=== PATIENT | female | born 1950 | race Caucasian/White ===

== ENCOUNTER → 2020-07-04 17:53 | Outpatient (CLI) | payer MEDICARE, SELFPAY ==
--- NOTE | ~2020-07-04 | DEXA_ITS ---
Bone Density Report Name: Aminah Bustamante Age: 70 Sex: Female Ethnicity: White Date of : 1950 Indication: osteopenia; height loss; prior fracture; hysterectomy; postmenopausal Referring Provider: Abbey Mena Study: Bone densitometry was performed. Exam Date: July 04, 2020 Accession number: [id number] Bone Density: Region BMD T-score Z-score Classification AP Spine (L1-L4) 0.868 -1.6 0.6 Osteopenia Femoral Neck (Left) 0.649 -1.8 0.1 Osteopenia Total Hip (Left) 0.787 -1.3 0.4 Osteopenia Femoral Neck (Right) 0.651 -1.8 0.2 Osteopenia Total Hip (Right) 0.789 -1.3 0.4 Osteopenia Total Hip Mean 0.788 -1.3 0.4 Osteopenia World Health Organization criteria for BMD impression classify patients as: Normal (T-score at or above -1.0), Osteopenia (T-score between -1.0 and -2.5), or Osteoporosis (T-score at or below -2.5). 10-year Fracture Risk: FRAX not reported because: Prior hip or vertebral fracture Previous Exams: Region Exam Age BMD T-score BMD Change BMD Change Date g/cm2 vs Baseline vs Previous AP Spine(L1-L4) 07/04/2020 70 0.868 -1.6 0.004 0.049* 06/05/2015 65 0.820 -2.1 -0.045* -0.045* 04/01/2013 63 0.864 -1.7 Total Hip(Left) 07/04/2020 70 0.787 -1.3 -0.015 -0.027 06/05/2015 65 0.814 -1.1 0.012 0.012 04/01/2013 63 0.801 -1.2 Total Hip(Right) 07/04/2020 70 0.789 -1.3 -0.013 -0.023 06/05/2015 65 0.812 -1.1 0.011 0.011 04/01/2013 63 0.801 -1.2 *Denotes significance at 95% confidence level, LSC for AP Spine = 0.022 g/cm2, LSC for Total Hip = 0.027 g/cm2 Clinical Information Provided by Patient: Have had a previous hip or vertebral fracture Has had a low trauma fracture Has used the following medications: Vitamin D, LEVOTHYROXINE Has the following medical conditions: Hysterectomy Patient maximum height was 64.0 Menopause Age: 32 Does not regularly consume dairy products Drinks caffeinated beverages Onset of menses at age 10 Number of children 1 Impression: The patient has low bone mass, based on the Left Femoral Neck T-score. The patient has risk factors, including: previous fracture. No significant bone loss was observed. Discussion: INCREASED RISK OF FRACTURE DUE TO HISTORY OF FRACTURE. The patient's previous fracture puts the patient at high risk of a future fracture. In untreated ferny
== END ==
PROVIDERS: PCP Internal Medicine; Visit Provider Clinical Nurse Specialist
DX: M81.0 Age-related osteoporosis without current pathological fracture (principal); M85.88 Other specified disorders of bone density and structure, other site; M85.852 Other specified disorders of bone density and structure, left thigh; M85.851 Other specified disorders of bone density and structure, right thigh
CPT/HCPCS: 77080

== ENCOUNTER 2020-12-06 10:23 | Outpatient (CLI) | payer MEDICARE, SELFPAY ==
--- NOTE | ~2020-12-06 | MR_ITS ---
EXAMINATION: MR brain/brain stem wo/w con EXAM DATE: 12/06/2020 11:29 INDICATION: R51.9 - Headache, unspecified. TECHNIQUE: Magnetic resonance imaging (MRI) of the brain/brain stem obtained without contrast. Sagit wendy T1, axial diffusion, gradient echo (T2*), T1, T2, FLAIR sequences obtained. Patient was then inj ected with 12 cc intravenous Multihance contrast. Axial and coronal postcontrast T1 weighted sequence s obtained. Correlation is made to carotid ultrasound 11/07/2013. FINDINGS: There are no areas of restricted diffusion to suggest acute infarction. There is no acute hemorrhage seen on the T2*, a hemosiderin sensitive sequence. There is a mammillary body fat signal i ntensity just right of midline best seen on the sagittal T1-weighted sequence measuring 3 x 6 mm, con sistent with lipoma. The ventricles are normal in size. There are no extra-axial collections. Absenc e of expected flow related signal void in the left intracranial ICA, likely corresponding to decrease d or absent flow within this artery. Patient has had bilateral ocular lens surgery. Soft tissue is unremarkable. There are no areas of abnormal enhancement on the postcontrast images. IMPRESSION: 1. Absent left ICA flow related signal. Consider carotid ultrasound or CT angiogram brain carotid. 2. Incidental MRA body lipoma. Reviewed, dictated and finalized at location B. IMPRESSION: 1. Absent left ICA flow related signal. Consider carotid ultrasound or CT joby ogram brain carotid. 2. Incidental MRA body lipoma.
== END 2020-12-06 10:24 | disposition home or self-care (01) ==
PROVIDERS: PCP Internal Medicine; Visit Provider Clinical Nurse Specialist
DX: R51.9 Headache, unspecified (principal); R94.02 Abnormal brain scan
CPT/HCPCS: 70553; A9577

== ENCOUNTER 2021-01-09 09:25 | Outpatient (CLI) | payer MEDICARE, SELFPAY ==
--- NOTE | ~2021-01-09 | NM_ITS ---
EXAMINATION: NM stress w perf spect multi DATE: 01/09/2021 12:14 INDICATION: Coronary atherosclerosis. TECHNIQUE: Rest images were obtained following intravenous administration of 9 mCi Tc99m tetrofosmin (Myoview). The patient performed an exercise activity. At peak exercise, 28 mCi Tc99m tetrofosmin (My oview) was administered intravenously, and stress images were obtained. Data was reconstructed into s hort axis and horizontal and vertical long axis SPECT images. Gated SPECT images were also obtained. COMPARISON: None. FINDINGS: There is no definite reversible or fixed perfusion abnormality to suggest ischemia or infar ction. There is no segmental wall motion abnormality. Left ventricular ejection fraction measures 5 8%. IMPRESSION: 1. No definite ischemia or infarct. 2. Normal left ventricular ejection fraction measuring 58%. Reviewed, dictated and finalized at location A.
--- NOTE | 2021-01-09 10:50 | EST_ITS ---
Patient Info Name: Aminah Bustamante Age: 71 years : 1950 Gender: Female Ht: 63 in Wt: 139 lbs BSA: 1.68 m2 Exam Date: 01/09/2021 10:53 AM Exam Location: [facility] Stress Patient Status: Outpatient Admit Date: 01/09/2021 Staff Ordering Physician: Gerry Johnston DO Attending Provider: Gerry Johnston DO Exercise Technologist: Emerson Newton RDCS, RT Exercise Physician: Issa Anderson DO Exam Type: CA stress test treadmill w NM Study Info A nuclear stress test was performed. Summary 1. 1. Inconclusive Matthew exercise stress test for ischemic ST changes by ECG criteria due to baseline LBBB. 2. 2. Reduced functional capacity, achieving 7 METs of workload. 3. 3. Baseline hypertension. 4. 4. Appropriate HR response to exercise. 5. 5. Appropriate HR recovery at 1 minute post exercise. 6. 6. Nuclear scan to follow and will be reported separately. Please correlate with it. 7. 7. Patient informed of the above results. Protocol: Matthew Stress ECG Details Stage: REST Duration (min): 2 min : 26 sec Speed (mph): 0.0 Grade (%): 0 HR (bpm): 64 SBP (mmHg): 187 DBP (mmHg): 84 METS: --- Stage: REST Duration (min): 3 min : 49 sec Speed (mph): 0.0 Grade (%): 0 HR (bpm): 79 SBP (mmHg): 187 DBP (mmHg): 84 METS: --- Stage: STAGE 1 Duration (min): 1 min : 0 sec Speed (mph): 1.7 Grade (%): 10 HR (bpm): 93 SBP (mmHg): 187 DBP (mmHg): 84 METS: --- Stage: STAGE 1 Duration (min): 2 min : 0 sec Speed (mph): 1.7 Grade (%): 10 HR (bpm): 99 SBP (mmHg): 187 DBP (mmHg): 84 METS: --- Stage: STAGE 1 Duration (min): 3 min : 0 sec Speed (mph): 1.7 Grade (%): 10 HR (bpm): 120 SBP (mmHg): 187 DBP (mmHg): 84 METS: --- Stage: STAGE 2 Duration (min): 1 min : 0 sec Speed (mph): 2.5 Grade (%): 12 HR (bpm): 121 SBP (mmHg): 200 DBP (mmHg): 92 METS: --- Stage: STAGE 2 Duration (min): 1 min : 58 sec Speed (mph): 2.5 Grade (%): 12 HR (bpm): 130 SBP (mmHg): 200 DBP (mmHg): 92 METS: --- Stage: RECOVERY Duration (min): 0 min : 1 sec Speed (mph): 1.5 Grade (%): 0 HR (bpm): 130 SBP (mmHg): 200 DBP (mmHg): 92 METS: --- Stage: RECOVERY Duration (min): 1 min : 1 sec Speed (mph): 0.0 Grade (%): 0 HR (bpm): 110 SBP (mmHg): 202 DBP (mmHg): 92 METS: --- Stage: RECOVERY Duration (min): 2 min : 1 sec Speed (mph): 0.0 Grade (%): 0 HR (bpm): 75 SBP (mmHg): 202 DBP (mmHg): 92 METS: --- Stage: RECOVERY Duration (min): 3 min : 1 sec Speed (mph): 0.0 Grade (%): 0 HR (bpm): 69 SBP (mmHg): 202 DBP (mmHg): 92 METS: --- Stage: RECOVERY Duration (min): 3 min : 47 sec Speed (mph): 0.0 Grade (%): 0 HR (bpm): 72 SBP (mmHg): 200 DBP (mmHg): 82 METS: --- Rest HR: 79 bpm Peak HR: 135 bpm
== END 2021-01-09 09:26 | disposition home or self-care (01) ==
PROVIDERS: PCP Internal Medicine; Visit Provider Internal Medicine
DX: I25.10 Atherosclerotic heart disease of native coronary artery without angina pectoris (principal)
CPT/HCPCS: 78452; 93017; A9502

== ENCOUNTER 2022-05-07 13:51 | Outpatient (CLI) | payer MEDICARE, SELFPAY | END 2022-05-07 13:52 | disposition home or self-care (01) | LOC: ANHAUDIO 13:52 | PROVIDERS: PCP Internal Medicine; Visit Provider Otolaryngology | DX: H91.93 Unspecified hearing loss, bilateral (principal) | CPT/HCPCS: 92557; 92567 ==

== ENCOUNTER 2022-05-26 08:53 | Outpatient (CLI) | payer MEDICARE, SELFPAY ==
[2022-05-26 18:42] LABS: Hematocrit 42.1 % (37.0-47.0); Hemoglobin 13.5 g/dL (12.0-15.0); Mean Corpuscular HGB Conc 32.1 g/dl (32-36); Mean Corpuscular Hemoglobin 29.2 pg (26-34); Mean Corpuscular Volume 91.1 fl (80-100); Mean Platelet Volume 11.3 fl (7.4-10.4); Platelet Count Result 237 k/mm3 (150-375); Red Blood Count 4.62 M/mm3 (4.2-5.4); Red Cell Distribution Width 14.1 % (11.5-14.5)
[2022-05-26 19:47] LABS: Alanine Aminotransferase 19 U/L (6-35); Albumin Level 4.5 g/dL (3.5-5.1); Alkaline Phosphatase 72 U/L (38-126); Anion Gap 4 mmol/L (8-16); Aspartate Amino Transferase 27 U/L (14-36); Bilirubin,Total 0.8 mg/dL (0.2-1.3); Blood Urea Nitrogen 28 mg/dL (7-17); Calcium 9.4 mg/dL (8.4-10.2); Carbon Dioxide 31 mmol/L (22-30); Chloride 100 mmol/L (98-107); Cholesterol 205 mg/dL (0-200); Estimated Glomerular Filt Rate > 60; Glucose 94 mg/dL (65-110); HDL Direct 81 mg/dL; Potassium 4.3 mmol/L (3.4-5.0); Sodium 135 mmol/L (137-145); Triglycerides 94 mg/dL (<150)
[2022-05-26 19:58] LABS: LDL Cholesterol Direct 82 mg/dL
[2022-05-26 20:14] LABS: Thyroid Stimulating Hormone 0.588 uIU/mL (0.465-4.680)
== END 2022-05-26 08:54 | disposition home or self-care (01) ==
LOC: ANHGOSHLAB 08:55
PROVIDERS: PCP Internal Medicine; Visit Provider Internal Medicine
DX: E03.9 Hypothyroidism, unspecified (principal); E78.5 Hyperlipidemia, unspecified; I25.10 Atherosclerotic heart disease of native coronary artery without angina pectoris; I65.29 Occlusion and stenosis of unspecified carotid artery
CPT/HCPCS: 36415; 80053; 80061; 84443; 85027

== ENCOUNTER 2022-06-09 10:39 | Emergency (ER) | payer MEDICARE, SELFPAY ==
--- NOTE | ~2022-06-09 | XR_ITS ---
EXAMINATION: XR shoulder RT min 2V DATE: 06/09/2022 12:27 INDICATION: Right shoulder pain. TECHNIQUE: 4 views of right shoulder were obtained. COMPARISON: None. FINDINGS: Bone alignment is normal. No fracture. There is mild osteoarthritis of glenohumeral joint a nd acromioclavicular joint. IMPRESSION: 1. Mild polyarticular osteoarthritis. Reviewed, dictated and finalized at location A. R
--- NOTE | ~2022-06-09 | XR_ITS ---
EXAMINATION: XR cervical spine 4-5V DATE: 06/09/2022 12:27 INDICATION: Right-sided neck pain. Fall. TECHNIQUE: 5 views of cervical spine including flexion and extension views were obtained. COMPARISON: Cervical spine radiographs 10/14/2009 FINDINGS: There is 5 degrees levocurvature of cervicothoracic spine. There is 2 mm anterolisthesis of C3 on C4 and C4 on C5. Vertebral body heights are normal. There is mildly decreased disc height at C 4-C5, moderately decreased disc height at C5-C6, and severely decreased disc height at C6-C7. There i s multilevel uncovertebral joint osteoarthritis, severe bilaterally at C4-C5 and C5-C6. There is mult ilevel facet joint osteoarthritis, severe bilaterally at C5-C6 and on the left at C3-C4 and C4-C5. Th ere is mild central canal stenosis at C3-C4, C4-C5, C5-C6, and C6-C7. No prevertebral soft tissue swe lling. IMPRESSION: 1. Severe cerebral spondylosis. Reviewed, dictated and finalized at location A. ER HANDLER
--- NOTE | ~2022-06-09 | XR_ITS ---
EXAMINATION: XR ribs RT 2V w CXR 2V DATE: 06/09/2022 12:36 INDICATION: Right lower rib pain. Fall. TECHNIQUE: Frontal and lateral views of the chest and 2 views on 3 radiographs of the right ribs were obtained. COMPARISON: Chest radiograph 10/14/2009 FINDINGS: CHEST TWO VIEWS: There is mild scarring at left lung apex. No pleural effusion or pneumothorax. The h eart size is normal. There are surgical clips in right abdomen. RIGHT RIBS: There is no rib fracture. IMPRESSION: 1. No rib fracture. Reviewed, dictated and finalized at location A. WORKER SUPERVISOR IMPRESSION: 1. No rib fracture.
[2022-06-09 10:50] VITALS: BP 143/63; PULSE 66; RESP 18; TEMP 36.3; O2SAT 100
--- NOTE | 2022-06-09 11:36 | ED.GENADULT ---
HPI - General Adult General Chief complaint: Extremity Injury, Upper Stated complaint: fall, rt shoulder injury Time Seen by Provider: 06/09/22 11:36 Source: patient, RN notes reviewed and old records reviewed Mode of arrival: ambulatory Limitations: no limitations History of Present Illness HPI narrative: 72 year old female presents to express care with complaints of falling while taking a walk yesterday evening when her foot got caught on piee of uneven sidewalk and she fell. She reports that In process of trying to catch herself she tried to catch herself with her outstretched right arm and is now having pain to her right shoulder and upper arm and also right rib area. Patient denies any dizziness prior to fall or hitting head in fall or any LOC. Patient reports that she had fall about 2.5 to 3 months ago when she caught foot on step fascia and has had some neck pain since, she reports that she is suppose to start some therapy on her neck.Patient has taken Tylenol for her discomfort. MD complaint: fall injury to right shoulder ribs and upper arm area Onset (ago): day(s) (2 of symtoms) Severity scale (1-10): 3 Quality: aching and sharp Exacerbating factors: movement Treatments prior to arrival: other (Tylenol) Related Data Home Medications Medication Instructions Recorded Confirmed aspirin 325 mg tablet 325 mg PO DAILY 02/09/19 06/09/22 cranberry 400 mg capsule 400 mg PO DAILY 02/09/19 06/09/22 mecobalamin (vitamin B12) 1,000 1,000 mcg sublingual DAILY 02/09/19 06/09/22 mcg disintegrating tablet,sublingual cholecalciferol (vitamin D3) 50 4,000 unit PO DAILY 11/11/21 06/09/22 mcg (2,000 unit) tablet dietary supplement 1 cap PO DAILY 11/11/21 06/09/22 Allergies Allergy/AdvReac Type Severity Reaction Status Date / Time Sulfa (Sulfonamide Allergy Unknown Rash Verified 06/09/22 11:44 Antibiotics) solifenacin Allergy Headache Verified 06/09/22 11:44 and weakness alendronate sodium AdvReac Stomach Verified 06/09/22 11:44 [From Fosamax] issues ibandronate sodium AdvReac Stomach Verified 06/09/22 11:44 [From Boniva] issues Review of Systems Review of Systems: CONSTITUTIONAL: Denies fever, chills, or sweats. EYES: Denies visual changes, redness, or discharge. ENT: Denies rhinorrhea, congestion, sore throat, or otalgia. CARDIOVASCULAR: Denies chest pain, palpitations, or edema. RESPIRATORY: Denies cough or dyspnea. GASTROINTESTINAL: Denies abdominal pain, nausea, vomiting, or diarrhea. GENITOURINARY: Denies dysuria or hematuria. SKIN: Denies rash or itching. MUSCULOSKELETAL: Reports ongoing cervical back pain, positive for right shoulder pain and upper right arm and to right rib area, or myalgia. NEUROLOGIC: Denies headache, numbness, or weakness. PSYCHIATRIC: Denies anxiety or depression. All systems reviewed & are unremarkable except as noted in HPI and below PMFSH Past Medical History Medical History Achalasia Atherosclerotic heart disease of viejas coronary artery without angina pectoris Carotid artery occlusion Chicken pox COVID-19 Essential tremor Headache Hyperlipidemia Hypothyroid Osteoporosis Peptic ulcer disease Unspecified atherosclerosis Surgical History Surgical History H/O breast surgery H/O cataract removal with insertion of prosthetic lens H/O: hysterectomy (~04/1982) History of hip surgery History of rectal surgery History of thyroidectomy (~04/1984) Hx of cholecystectomy (~04/2007) Hx of vaginal surgery Family History Family History Mother Diabetes mellitus Cerebrovascular accident, Onset Age: 94 Father Cerebrovascular accident, Onset Age: 89 Family history of Parkinson's disease Family history of Alzheimer's disease, Onset Age: 89 Sibling Cerebrovascular acci
== END 2022-06-09 13:12 | disposition home or self-care (01) ==
PROVIDERS: Emergency Provider Registered Nurse; PCP Internal Medicine
DX: M25.511 Pain in right shoulder (principal); M54.2 Cervicalgia; S20.211A Contusion of right front wall of thorax, initial encounter; I25.10 Atherosclerotic heart disease of native coronary artery without angina pectoris; E78.5 Hyperlipidemia, unspecified; E03.9 Hypothyroidism, unspecified; Z79.82 Long term (current) use of aspirin; W01.0XXA Fall on same level from slipping, tripping and stumbling without subsequent striking against object, initial encounter
CPT/HCPCS: 71046; 71100; 71101; 72050; 73030; 99214; G0463

== ENCOUNTER 2022-07-18 08:00 | Outpatient (RCR) | payer MEDICARE, SELFPAY ==
--- NOTE | 2022-06-18 17:23 | PTOPEVAL1 ---
Assessment and note entered by Jordan Owusu, PT, DPT Evaluation Information Assessment Status Evaluation Diagnosis R shoulder pain after fall Onset 3 months Subjective Information Pt states she does not normally fall. She states 3 months ago she fell and caused a flair up in her neck, she does report chronic neck pain. She states last week she fell again and when her was trying to help her get it up she felt a pop in her shoulder and thought she dislocated it . Neck, rib, and shoulder imaging all came back negative for fractures. 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 Pt states she is an avid walker. Assessment PT Clinical Summary Aminah presents to therapy today with a diagnosis of cervicalgia, R shoulder pain, and repeated falls. Today she demonstrates decreased active and passive cervical motions in all direction, decreased active R shoulder flexion when compared to R, and increased pain reports with active motion of the neck and shoulder. She demonstrates decreased R shoulder strength and forward head with upper cervical hyperextension. Skilled physical therapy services are indicated to address ROM and strength deficits, to improve pain reports, to improve functional mobility, and to return to baseline function. Plan of Care Interventions Electrical Stimulation,Hot Pack/Cold Pack,Manual Therapy,Neuro Re-education,Patient/Caregiver Educati,Therapeutic Activities,Therapeutic Exercise PT Services Indicated Yes Treatment Frequency and 2x/wk for 4 wks Duration These treatments will address the objective and functional deficits as defined above. The patient will be advanced safely and appropriately in order for the patient to progress towards his/her prior level of function. Additional exercises will be introduced and as well as a comprehensive home exercise program upon discharge, if needed, ?to ensure carryover of functional gains achieved in the clinic. This treatment plan has been reviewed and agreement upon by the patient.
[2022-07-18 08:01] VITALS: BP_SYST 85
--- NOTE | 2022-07-18 08:34 | PTOPPROG ---
Assessment and note entered by Jordan Owusu, PT, DPT Evaluation Information Assessment Status Progress Diagnosis R shoulder pain after fall Onset 3 months Subjective Information Pt states she has made no progress since starting therapy. She states in some aspects she thinks her pain is worse. She states she exercises hurt so bad to do. She states there was a pop when she fell and she is now thinking maybe she tore something in her shoulder. She reports in the last week she now has pain at rest, and intermittent sharp pains. Assessment PT Clinical Summary Aminah presents to therapy today for her progress report following 8 visits of skilled therapy to treat her R shoulder pain. Today she demonstrates decreased active and passive shoulder ROM compared to her initial visit. She also now reports pain at rest, which she did not at her initial evaluation. She has a (+) painful Arc, (+) drop arm, and (+) empty can possibly indicating RTC involvement. Pt would like to follow up with her referring provider and look into getting an MRI. Pt will be placed on hold at this time. Plan of Care Interventions Electrical Stimulation,Hot Pack/Cold Pack,Manual Therapy,Neuro Re-education,Patient/Caregiver Educati,Therapeutic Activities,Therapeutic Exercise PT Services Indicated Yes Treatment Frequency and pending follow up with referring provider Duration These treatments will address the objective and functional deficits as defined above. The patient will be advanced safely and appropriately in order for the patient to progress towards his/her prior level of function. Additional exercises will be introduced and as well as a comprehensive home exercise program upon discharge, if needed, ?to ensure carryover of functional gains achieved in the clinic. This treatment plan has been reviewed and agreement upon by the patient.
--- NOTE | 2022-09-05 09:56 | PTOPDC ---
Assessment and note entered by Jordan Owusu, PT, DPT Evaluation Information Assessment Status Discharge - Pt Not Present Diagnosis R shoulder pain after fall Onset 3 months Subjective Information Received new order from Dr. Ch. Pt underwent a R RTC repair on 08/19/22. She completed 9 visits of skilled therapy from 06/18/22 to 07/18/22. She returns today, 09/05/22 for her initial evaluation following surgery. Updated noted will be sent to Dr. Ch.
== END 2022-09-05 11:31 | disposition home or self-care (01) ==
LOC: ANHGOSHPT 08:00
PROVIDERS: PCP Internal Medicine; Visit Provider Internal Medicine
DX: M54.2 Cervicalgia (principal); M25.511 Pain in right shoulder; W19.XXXA Unspecified fall, initial encounter
CPT/HCPCS: 97014; 97110; 97112; 97140; 97161; G0283

== ENCOUNTER → 2022-07-23 08:08 | Outpatient (CLI) | payer MEDICARE, SELFPAY ==
--- NOTE | ~2022-07-23 | MR_ITS ---
MRI of the right shoulder Technique: Axial proton-density fat-sat images, coronal proton density fat-sat and T2 fat-sat images, and sagittal T1-weighted and T2 fat-sat images were acquired. Clinical History: Pain Findings: There is moderate to advanced AC joint degenerative change. No significant subacromial spur . Coracoclavicular, coracoacromial, and coracohumeral ligaments are intact. There is full-thickness tear involving the entirety of the supraspinatus tendon, as well as the major ity of the anterior and central portion of the infraspinatus tendon. Posterior-most infraspinatus ten dons appear intact. Fluid-filled gap measures approximately 2.2 x 3.1 cm in extent. Subscapularis ten don is intact, with moderate tendinosis. Tendon of the long head of the biceps is intact. No definite labral tear identified. There is mild chondromalacia of the humeral head. Small to moderate glenohumeral joint effusion is pr esent, with fluid passing through the rotator cuff defect into the subacromial/subdeltoid bursa. Infe rior glenohumeral ligament is intact. No muscle atrophy or edema. Impression: Full-thickness tear involving the entire supraspinatus tendon as well as the majority of the anterior and central portion of the infraspinatus tendon, as detailed above. Moderate to advanced AC joint degenerative change. Mild chondromalacia of the humeral head. Reviewed, dictated and finalized at [facility]. Impression: Full-thickness tear involving the entire supraspinatus tendon as well as the ma jority of the anterior and central portion of the infraspinatus tendon, as deta iled above. Moderate to advanced AC joint degenerative change. Mild chondromalacia of the humeral head.
== END ==
PROVIDERS: PCP Internal Medicine; Visit Provider Clinical Nurse Specialist
DX: S46.811A Strain of other muscles, fascia and tendons at shoulder and upper arm level, right arm, initial encounter (principal); M19.011 Primary osteoarthritis, right shoulder; M94.211 Chondromalacia, right shoulder; X58.XXXA Exposure to other specified factors, initial encounter
CPT/HCPCS: 73221

== ENCOUNTER 2022-08-14 08:09 | Outpatient (CLI) | payer MEDICARE, SELFPAY ==
--- NOTE | 2022-08-14 08:17 | ECG_ITS ---
Measurements Intervals [place] Rate: 64 P: -22 AL: 148 QRS: -4 QRSD: 136 T: 103 QT: 440 QTc: 456 Interpretive Statements SINUS RHYTHM LEFT BUNDLE BRANCH BLOCK BASELINE ARTIFACT- I, II ,III, AVR, AVL, AVF ABNORMAL ECG NO PREVIOUS ECG AVAILABLE FOR COMPARISON Electronically Signed On 08-14-2022 8:59:06 CDT by Issa Anderson D.O.
== END 2022-08-14 08:10 | disposition home or self-care (01) ==
PROVIDERS: PCP Internal Medicine; Visit Provider Orthopaedic Surgery
DX: E78.00 Pure hypercholesterolemia, unspecified (principal); Z01.818 Encounter for other preprocedural examination; I44.7 Left bundle-branch block, unspecified
CPT/HCPCS: 93005

== ENCOUNTER 2022-08-19 01:37 | Day surgery (SDC) | payer MEDICARE, SELFPAY ==
[2022-08-12 10:55] VITALS: BMI 26.6
--- NOTE | 2022-08-12 11:19 | PC.NURSE ---
PRE-OP INSTRUCTIONS, PLEASE READ CAREFULLY Report to the Outpatient Waiting Room, entrance under the green pavilion located off [facility], at time _0830_ on date _08/19/22_. Planned Procedure Time: _1030_. Time changes happen often and if your time is changed the preop area will call you the afternoon before. - You and your visitor will be asked to self-screen and do not enter if you have any COVID symptoms. - A mask is optional within the hospital at this time. Patients may have clear liquids (water, carbonated beverages, clear teas, apple juice) until 3 hours prior to surgery (0730 AM) with a maximum of 20 ounces. - No food from midnight until time of surgery Take the following medications with a SIP of water the morning of surgery: _LEVOTHYROXINE, LIOTHYRONINE, & TYLENOL IF NEEDED_ DO NOT STOP ANY OF YOUR OTHER PRESCRIPTION MEDICATIONS PRIOR TO SURGERY ?EXCEPT THE FOLLOWING Medications to discontinue - _ASPIRIN PER DR. SHEPHERD'S INSTRUCTIONS_ Medications to discontinue per ANESTHESIA - _SUPPLEMENTS 3 DAYS PRIOR TO SURGERY, Date to take last dose 08/15/22_ Please no make-up, nail upper sorbian, hairspray, perfume, deodorant, or body powder the day of surgery. No jewelry (including any body piercings) or valuables the day of surgery, leave them at home. Please take a shower or bath the night before, or the morning of, surgery with an antibacterial soap. Wear comfortable, loose fitting clothing. - Jewelry must be removed prior to entering the operating room. Rings and piercings that are not removed may be cut off. - The hospital will not accept responsibility for valuables. - Please leave all valuables, including medications, at home the day of surgery. If you are going home after surgery, a licensed corporate driver must drive you home. - NO public transportation without another adult if you receive anesthesia. - We recommend that an adult stay with you for 24 hours following discharge. - We also recommend that you do not drive, make important decision, drink alcoholic beverages, or take any drugs that were not prescribed by your health care provider for at least 24 hours after your discharge time. Follow any additional instructions given to you from your surgeon. JAMES MOSERDAGEL DIRECTED If you or anyone in your household have experienced Covid symptoms in the past week, please notify your surgeon or the nurse liaison at the phone number below for possible testing. Telephone instructions given to _PATIENT_and asked if any additional questions and then verbalized understanding. Patient advised to call surgeon office or pre surgery nurse liaison [phone] if any additional questions.
--- NOTE | 2022-08-18 10:42 | WPDANESEPPF ---
Anes - Initial Pre Proc Eval Procedure: Operation Date: 08/19/22 10:30 Proposed Procedures p Right Rotator Cuff Repair - Ryder Ch MD Date/Time: 08/18/22 10:42 Surgeon: Ryder Ch MD Pre Op Diagnosis: Rt Rot Cuff Tear Patient Data Age: 72 Gender: F Height: 1.6 m Weight: 68.18 kg Allergies Allergy/AdvReac Type Severity Reaction Status Date / Time Sulfa (Sulfonamide Allergy Unknown Rash Verified 08/19/22 09:13 Antibiotics) solifenacin Allergy Headache Verified 08/19/22 09:13 and weakness alendronate sodium AdvReac Stomach Verified 08/19/22 09:13 [From Fosamax] issues ibandronate sodium AdvReac Stomach Verified 08/19/22 09:13 [From Boniva] issues Home Medications Medication Instructions Recorded Confirmed Type aspirin 325 mg tablet 325 mg PO DAILY 02/09/19 08/19/22 History cranberry 400 mg capsule 400 mg PO DAILY 02/09/19 08/19/22 History mecobalamin (vitamin B12) 1,000 1,000 mcg sublingual DAILY 02/09/19 08/19/22 History mcg disintegrating tablet,sublingual levothyroxine 75 mcg tablet 75 mcg PO DAILY #90 tabs 05/14/21 08/19/22 Rx (Synthroid) rosuvastatin 20 mg tablet 20 mg PO DAILY #90 tabs 05/14/21 08/19/22 Rx cholecalciferol (vitamin D3) 50 4,000 unit PO DAILY 11/11/21 08/19/22 History mcg (2,000 unit) tablet dietary supplement 1 cap PO DAILY 11/11/21 08/19/22 History liothyronine 5 mcg tablet See Rx Instructions .Route 05/14/22 08/19/22 Rx .COMPLEX #90 tabs omeprazole 20 mg capsule,delayed See Rx Instructions .Route BID 05/14/22 08/19/22 Rx release #180 caps chlorhexidine gluconate 4 % 1 applic topical ONCE #237 mL 08/11/22 08/19/22 Rx topical liquid (Hibiclens) clindamycin phosphate 1 % topical 1 applic topical DAILY #75 mL 08/11/22 08/19/22 Rx gel, once daily (Clindagel) acetaminophen 500 mg tablet 500 mg PO Q6H PRN Pain 08/12/22 08/19/22 History Patient hx anesthesia problems: post op nausea/vomiting Family hx anesthesia problems: none Results Review: All pre-operative results and documents have been reviewed as part of the pre-operative evaluation. [facility] Past Medical History Medical History Achalasia Atherosclerotic heart disease of redding coronary artery without angina pectoris Carotid artery occlusion Chicken pox COVID-19 Essential tremor Headache Hyperlipidemia Hypothyroid Osteoporosis Peptic ulcer disease Unspecified atherosclerosis Surgical History Surgical History H/O breast surgery H/O cataract removal with insertion of prosthetic lens H/O: hysterectomy (~04/1982) History of hip surgery History of rectal surgery History of thyroidectomy (~04/1984) Hx of cholecystectomy (~04/2007) Hx of vaginal surgery Family History Family History Mother Diabetes mellitus Cerebrovascular accident, Onset Age: 94 Father Cerebrovascular accident, Onset Age: 89 Family history of Parkinson's disease Family history of Alzheimer's disease, Onset Age: 89 Sibling Cerebrovascular accident Other Family history of glaucoma Family history of thyroid disease Hypertension Social History Social History Smoking status: Never smoker Second hand tobacco smoke exposure: No Alcohol intake: current Alcohol use details: 2/MONTH Substance use: never Substance use type: does not use Lack of Transportation: No Lack of Food: Never True Current Housing: I Have Housing Concerned About Future Housing: No Difficulty Paying Gas/Electric Bills: No Difficulty Paying for Meds: No Currently Unemployed: No Education: Master's Degree or Higher Difficulty w/ Childcare or Family Care: No Living arrangements: with family Spiritual care concerns: N
[2022-08-19] VITALS (9 sets, daily range): BP systolic 141–168; BP diastolic 57–82; PULSE 70–98; RESP 10–17; TEMP 36.1–36.9; O2SAT 97–100
--- NOTE | 2022-08-19 07:19 | WPDHPUPDATE1 ---
History and Physical Update Update Date/Time: 08/19/22 07:19 History and Physical has been reviewed, including an updated exam of the patient. There are NO changes in the patient's condition. Risks, benefits, and alternatives have been discussed and questions answered. Patient agrees to proceed with procedure.
[2022-08-19] MEDS: CELECOXIB 200 MG CAPSULE PO (09:20)
[2022-08-19] MEDS: ACETAMINOPHEN 500 MG TABLET 1000 MG PO (09:20)
[2022-08-19] MEDS: LACTATED RINGERS 1,000 ML 30 ML IV CONT (09:32)
--- NOTE | 2022-08-19 09:42 | WPDANESPNB ---
Anes - Peripheral Nerve Block Date/Time: 08/19/22 09:42 I have discussed with the patient/family/POA the placement of a peripheral nerve block for post-operative pain management, including associated risks, benefits, complications, and side effects. Alternative methods of post-operative analgesia were detailed. Questions were solicited and answers provided to the satisfaction of the patient/family/POA. Time-Out: A pre-procedural Time-Out was completed immediately before starting the procedure and confirmed: Patient Identification, Site, Procedure, Patient Position and the Availability of Requisite Equipment. Clinical Indications: Acute post-operative pain management requested by the operative surgeon. Nerve Block Insertion Note Anes-nerve block: interscalene right Patient position: supine Skin prep: chlorhexidine Needle: 22 gauge, stimulating, insulated echogenic needle. Needle length: 50 mm Technique: ultrasound Injectate: bupivacaine 0.5% with epi 5 mcg/ml (30cc- no epi) Observations: tolerated well Complications: none Procedure start time:: 1024 Procedure end time:: 1028
--- NOTE | 2022-08-19 12:33 | P.OP_ITS ---
Procedure Note - Detailed Date of Procedure 08/19/22 Pre-op Diagnosis Rt Rot Cuff Tear Post-op Diagnosis Same Procedure Performed REPAIR RIGHT ROTATOR CUFF Surgeon Ryder Ch MD Anesthesia General Description of Procedure THE PATIENT WAS TAKEN TO THE OPERATING ROOM AND THEN INTUBATED AND PLACED IN THE BEACH CHAIR POSITION. THE RIGHT UPPER EXTREMITY WAS PREPPED AND DRAPED IN THE NORMAL STERILE FASHION. AN INCISION WAS MADE IN BETWEEN THE ANA-LATERAL ACROMION AND THE AC JOINT. THE FASCIA WAS IDENTIFIED. NEXT A MINI OPEN INCISION WAS MADE THROUGH THE DELTOID MUSCLE EXPOSING THE SUBACROMIAL SPACE. A LIMITED ACROMIOPLASTY WAS PREFORMED. THE ROTATOR CUFF WAS IDENTIFIED. THERE WAS A FULL THICKNESS TEAR. IT MEASURED APPROXIMATELY 3 CM X 2 CM. THE BICEPS TENDON WAs INTACT. THE GREATER TUBEROSITY WAS DEBRIDED TO BLEEDING BONE. 3 ARTHREX 5.5 SUTURE ANCHORS WERE PLACED IN TO GOOD BONE AND HAD VERY GOOD BITES. GENNA-ROHAN TYPE REPAIRS WERE DONE TO THE ROTATOR CUFF AND THERE WAS GOOD APPROXIMATION TO THE GREATER TUBEROSITY. THE REPAIR WAS EXCELLENT. THERE WAS NO IMPINGEMENT ON THE REPAIR FROM THE ACROMION WITH RANGE OF MOTION. THE WOUND WAS IRRIGATED WITH COPIOUS AMOUNTS OF ANTIBIOTIC SOLUTION. THE DELTOID MUSCLE WAS REPAIRED WITH #2 FIBER WIRE AND 0 VICRYL SUTURE. THE SUBCUTANEOUS LAYER WAS APPROXIMATED WITH 2- 0 VICRYL. THE SKIN WAS APPROXIMATED WITH 3-0 QUIL AND DERMABOND. STERILE DRESSING WAS APPLIED. PATIENT WAS EXTUBATED. Estimated Blood Loss 20 Complications No immediate complications Condition Stable Disposition PACU
== END 2022-08-19 14:22 | disposition home or self-care (01) ==
PROVIDERS: PCP Internal Medicine; Visit Provider Orthopaedic Surgery
PROC: (CPT 23420; principal; 2022-08-19 10:30)
DX: S46.011A Strain of muscle(s) and tendon(s) of the rotator cuff of right shoulder, initial encounter (principal); W01.0XXA Fall on same level from slipping, tripping and stumbling without subsequent striking against object, initial encounter; G89.18 Other acute postprocedural pain; I25.10 Atherosclerotic heart disease of native coronary artery without angina pectoris; E78.5 Hyperlipidemia, unspecified; M81.0 Age-related osteoporosis without current pathological fracture; G25.0 Essential tremor; E03.9 Hypothyroidism, unspecified; Z79.82 Long term (current) use of aspirin
CPT/HCPCS: 23410; 64415; 93005; A9270; C1713; J0330; J1100; J1170; J2250; J2370; J2405; J2704; J2765; J3010; J7120

== ENCOUNTER 2022-11-24 08:06 | Outpatient (CLI) | payer MEDICARE, SELFPAY ==
[2022-11-24 11:39] LABS: Hematocrit 40.5 % (37.0-47.0); Hemoglobin 12.7 g/dL (12.0-15.0); Mean Corpuscular HGB Conc 31.4 g/dl (32-36); Mean Corpuscular Volume 95.7 fl (80-100); Mean Platelet Volume 11.5 fl (7.4-10.4); Platelet Count Result 197 k/mm3 (150-375); Red Blood Count 4.23 M/mm3 (4.2-5.4); White Blood Count 6.4 K/mm3 (4.5-10.0)
[2022-11-24 11:40] LABS: Chloride 106 mmol/L (98-107); Potassium 4.2 mmol/L (3.4-5.0); Sodium 140 mmol/L (137-145)
[2022-11-24 11:41] LABS: Anion Gap 3 mmol/L (8-16); Blood Urea Nitrogen 18 mg/dL (7-17); Calcium 9.4 mg/dL (8.4-10.2); Carbon Dioxide 31 mmol/L (22-30); Estimated Glomerular Filt Rate > 60; Glucose 86 mg/dL (65-110)
[2022-11-24 12:13] LABS: Thyroid Stimulating Hormone 0.564 uIU/mL (0.465-4.680)
[2022-11-24 12:14] LABS: Vitamin D 25 Hydroxy 73.5 ng/mL
[2022-11-24 12:48] LABS: Folic Acid 10.2 ng/mL (2.76->20)
[2022-11-28 10:42] LABS: Apolipoprotein B 66 mg/dL (<90)
== END 2022-11-24 08:07 | disposition home or self-care (01) ==
LOC: ANHGOSHLAB 08:09
PROVIDERS: PCP Internal Medicine; Visit Provider Internal Medicine
DX: L65.8 Other specified nonscarring hair loss (principal); D64.9 Anemia, unspecified; E78.5 Hyperlipidemia, unspecified; E03.9 Hypothyroidism, unspecified; E55.9 Vitamin D deficiency, unspecified; I65.29 Occlusion and stenosis of unspecified carotid artery
CPT/HCPCS: 36415; 80048; 82172; 82306; 82607; 82728; 82746; 84443; 85027

== ENCOUNTER 2022-11-28 08:00 | Outpatient (RCR) | payer MEDICARE, SELFPAY ==
[2022-09-05 10:52] VITALS: BP_SYST 55
--- NOTE | 2022-09-05 12:32 | OPREHPOC ---
Outpatient Therapy Plan of Care This is a Multidisciplinary Plan of Care that may contain components documented by all disciplines (PT, OT, and ST.) PT Problem 1 PT Problem #1 Knowledge Deficit PT Goal 1 Goal Pt to be IND with issued HEP Target Visit 10 PT Problem 2 PT Problem #2 Pain PT Goal 1 Goal Pt to report shoulder pain no greater than 4/10 in the last week Target Visit 10 Progress Met PT Goal 2 Goal Pt to report 75% return to baseline function Target Visit 10 PT Problem 3 PT Problem #3 Impaired Range of Motion PT Goal 1 Goal Pt to demonstrate 130 deg of passive shoulder flexion and abduction Target Visit 10 PT Goal 2 Goal Pt to demonstrate 120 deg of active shoulder flexion and abduction - when protocol allows Target Visit 10 Progress Met PT Problem 4 PT Problem #4 Impaired Strength PT Goal 1 Goal Pt to demonstrate R shoulder strength grossly 4/5 - when protocol allows Target Visit 10 PT Goal 2 Goal Pt to be able to lift 5lb overhead - when protocol allows PT Problem 5 PT Problem #5 Impaired Functional Mobil PT Goal 1 Goal Pt to be able to dress herself IND Target Visit 10 Progress Met
--- NOTE | 2022-09-05 12:32 | PTOPEVAL1 ---
Assessment and note entered by Jordan Owusu, PT, DPT Evaluation Information Assessment Status Evaluation Diagnosis R RTC repair Onset 08/19/22 Subjective Information Pt reports she had a R RTC repair on 08/19/22. She has been compliant with her immobilizer, she reports she was told yesterday she can progress to just a sling. She reports pain is well controlled , she is only taking pain meds at night. Reported Pain Level Pain Score 1: Self Report Assessment PT Clinical Summary Aminah presents to therapy today for her initial evaluation following a R RTC repair on 08/19/22. Today she demonstrates passive shoulder flexion to 58 deg and passive shoulder abduction to 55 deg, both motions are limited by significant pain reports. Pt was instructed in a HEP today including shoulder pendulums, elbow and forearm active ROM, and scapular retractions. She was educated on bed mobility and positioning techniques to assist with pain management. Skilled physical therapy services are indicated to address the deficts noted above, to improve passive ROM, and to progress shoulder as surgical protocol allows. Plan of Care Interventions Electrical Stimulation,Hot Pack/Cold Pack,Manual Therapy,Neuro Re-education,Patient/Caregiver Educati,Therapeutic Activities,Therapeutic Exercise PT Services Indicated Yes Treatment Frequency and 2x/wk for 5 wks Duration These treatments will address the objective and functional deficits as defined above. The patient will be advanced safely and appropriately in order for the patient to progress towards his/her prior level of function. Additional exercises will be introduced and as well as a comprehensive home exercise program upon discharge, if needed, ?to ensure carryover of functional gains achieved in the clinic. This treatment plan has been reviewed and agreement upon by the patient.
--- NOTE | 2022-09-23 14:13 | PCPTNOTE ---
On 09/23/22, the student Heike Faith, provided care and completed [facility] documentation on this patient. I have reviewed the student's documentation and agree with the findings.
[2022-10-09 08:04] VITALS: BP_SYST 76
--- NOTE | 2022-10-09 09:46 | PTOPPROG ---
Assessment and note entered by Jordan Owusu, PT, DPT Evaluation Information Assessment Status Progress Diagnosis R RTC repair Onset 08/19/22 Subjective Information Pt states she has not been wearing her sling during the day. She states she has been sleeping better in the last week. She reports good compliance with her HEP. Assessment PT Clinical Summary Aminah presents to therapy today for her progress report 10 visits of skilled therapy to treat her R RTC repair on 08/19/22. Today she demonstrates active/passive shoulder flexion to 55 /95 deg and active/passive shoulder abduction to 40/76 deg. Her strength is currently 2/5 and decreased from her uninvolved side. She reports good compliance with her HEP but is making slow but consistent progress towards her therapy goals. Continuation of skilled therapy services are indicated to address remaining deficits, progress strength and ROM, and to return to PLOF. Plan of Care Interventions Electrical Stimulation,Hot Pack/Cold Pack,Manual Therapy,Neuro Re-education,Patient/Caregiver Educati,Therapeutic Activities,Therapeutic Exercise PT Services Indicated Yes Treatment Frequency and 2x/wk for 5 wks Duration These treatments will address the objective and functional deficits as defined above. The patient will be advanced safely and appropriately in order for the patient to progress towards his/her prior level of function. Additional exercises will be introduced and as well as a comprehensive home exercise program upon discharge, if needed, ?to ensure carryover of functional gains achieved in the clinic. This treatment plan has been reviewed and agreement upon by the patient.
--- NOTE | 2022-11-05 10:21 | PCPTNOTE ---
Appointment on November 04 was canceled due to provider out sick.
[2022-11-14 08:07] VITALS: BP_SYST 76
--- NOTE | 2022-11-14 09:03 | PTOPPROG ---
Assessment and note entered by Jordan Owusu, PT, DPT Evaluation Information Assessment Status Progress Diagnosis R RTC repair Onset 08/19/22 Subjective Information Pt states she followed up with her surgeon last week, he is considering a manipulation. She states she has seen some improvement but less than she would like. Assessment PT Clinical Summary Aminah presents to therapy today for her progress report 20 visits of skilled therapy to treat her R RTC repair on 08/19/22. Today she demonstrates active/passive shoulder flexion to 76 /120 deg and active/passive shoulder abduction to 55/90 deg. Her strength is currently 2+/5 and decreased from her uninvolved side. She continues to reports good compliance with her HEP but is making slow but consistent progress towards her therapy goals. Continuation of skilled therapy services are indicated to address remaining deficits, progress strength and ROM, and to return to PLOF. Plan of Care Interventions Electrical Stimulation,Hot Pack/Cold Pack,Manual Therapy,Neuro Re-education,Patient/Caregiver Educati,Therapeutic Activities,Therapeutic Exercise PT Services Indicated Yes Treatment Frequency and 2x/wk for 8 wks Duration These treatments will address the objective and functional deficits as defined above. The patient will be advanced safely and appropriately in order for the patient to progress towards his/her prior level of function. Additional exercises will be introduced and as well as a comprehensive home exercise program upon discharge, if needed, ?to ensure carryover of functional gains achieved in the clinic. This treatment plan has been reviewed and agreement upon by the patient.
--- NOTE | 2022-12-01 11:14 | PCPTNOTE ---
This treatment is being continued on visit number [id number]. Please see documentation on both accounts to view progress. Completed interventions, outcomes, and problems have been marked as Inactive to facilitate the copying of the Care plan routine for recurring accounts.
== END 2022-12-01 09:18 | disposition still patient (30) ==
LOC: ANHGOSHPT 08:00
PROVIDERS: PCP Internal Medicine; Visit Provider Orthopaedic Surgery
DX: M75.101 Unspecified rotator cuff tear or rupture of right shoulder, not specified as traumatic (principal); M25.511 Pain in right shoulder; Z98.890 Other specified postprocedural states
CPT/HCPCS: 97110; 97112; 97140; 97161; 97530

== ENCOUNTER 2023-02-05 08:00 | Outpatient (RCR) | payer MEDICARE, SELFPAY ==
--- NOTE | 2022-12-01 11:14 | PCPTNOTE ---
The treatment documented on this account is a continuation of the treatment documented on visit number [id number]. Please see documentation on both accounts to view progress. The Plan of Care has been transitioned and updated within the new V#. I have addressed and agree with the discipline specific Problems, Interventions, and Goals for the current certification period. Completed interventions, outcomes, and problems have been marked as Inactive to facilitate the copying of the Care plan routine for recurring accounts.
--- NOTE | 2022-12-29 08:00 | PCPTNOTE ---
Patient called & cancelled scheduled appointment this date due to being sick. She has been rescheduled.
[2023-01-01 08:00] VITALS: BP_SYST 105
--- NOTE | 2023-01-01 10:27 | PTOPPROG ---
Assessment and note entered by Jordan Owusu, PT, DPT Evaluation Information Assessment Status Progress Diagnosis R RTC repair Onset 08/19/22 Subjective Information Pt states it feels like her strength has really improved since she has been gone. She states ROM feels about the same. She reports good compliance with her exercises the first week of her trip. She states she follows up with her orthopedic surgeon on Thursday. Assessment PT Clinical Summary Pat presents to therapy today for her progress report following 25 visits of skilled therapy. Today she demonstrates improved active shoulder flexion from 76 deg to 105 deg and improved active abduction from 55 deg to 72 deg. She is making slow but consistent progress towards her therapy goals. She continues to reports good compliance with her HEP. Continuation of skilled therapy services are indicated to progress towards goals, to continue to improve functional strength and ROM , and to return to PLOF. Plan of Care Interventions Electrical Stimulation,Gait Training,Hot Pack/Cold Pack,Manual Therapy,Neuro Re-education,Patient/ Caregiver Educati,Therapeutic Activities, Therapeutic Exercise PT Services Indicated Yes Treatment Frequency and 2x/wk for 8 visits Duration These treatments will address the objective and functional deficits as defined above. The patient will be advanced safely and appropriately in order for the patient to progress towards his/her prior level of function. Additional exercises will be introduced and as well as a comprehensive home exercise program upon discharge, if needed, ?to ensure carryover of functional gains achieved in the clinic. This treatment plan has been reviewed and agreement upon by the patient.
--- NOTE | 2023-01-05 12:53 | PCPTNOTE ---
Patient called & cancelled scheduled appointment this date due to getting a cortisone injection this date.
[2023-01-28 09:58] VITALS: BP_SYST 135
--- NOTE | 2023-01-28 13:21 | PTOPPROG ---
Assessment and note entered by Jordan Owusu, PT, DPT Evaluation Information Assessment Status Progress Diagnosis R RTC repair Onset 08/19/22 Subjective Information Pt states overall things are doing well. She states in the last month she has noticed improvements in her strength. She states getting dressed is much easier and so has no trouble Assessment PT Clinical Summary Zulema presents to therapy today for her progress report following 320 visits of skilled therapy. Today she demonstrates improved active shoulder flexion from 105 deg to 115 deg and improved active abduction from 72 deg to 96 deg. She is making progress with both her ROM and strength goals. Continuation of skilled therapy services are indicated to progress towards goals, to continue to improve functional strength and ROM, and to return to PLOF. Plan of Care Interventions Electrical Stimulation,Gait Training,Hot Pack/Cold Pack,Manual Therapy,Neuro Re-education,Patient/ Caregiver Educati,Therapeutic Activities, Therapeutic Exercise PT Services Indicated Yes Treatment Frequency and 2x/wk for 8 visits Duration These treatments will address the objective and functional deficits as defined above. The patient will be advanced safely and appropriately in order for the patient to progress towards his/her prior level of function. Additional exercises will be introduced and as well as a comprehensive home exercise program upon discharge, if needed, ?to ensure carryover of functional gains achieved in the clinic. This treatment plan has been reviewed and agreement upon by the patient.
--- NOTE | 2023-02-24 09:56 | PCPTNOTE ---
Patient called & cancelled scheduled appointment this date due to following up with ortho yesterday. He states she is scheduled for a manipulation later this week.
--- NOTE | 2023-03-06 13:42 | PTOPDC ---
Assessment and note entered by Jordan Owusu, PT, DPT Evaluation Information Assessment Status Discharge - Pt Not Present Diagnosis R RTC repair Onset 08/19/22 Subjective Information Pt underwent a manual manipulation and therapy under the new order will be documented under a new account number. Assessment PT Clinical Summary This account number will be closed at this time.
== END 2023-03-06 14:56 | disposition home or self-care (01) ==
LOC: ANHGOSHPT 08:00
PROVIDERS: PCP Internal Medicine; Visit Provider Orthopaedic Surgery
DX: Z48.89 Encounter for other specified surgical aftercare (principal); M75.101 Unspecified rotator cuff tear or rupture of right shoulder, not specified as traumatic; M25.511 Pain in right shoulder; Z98.890 Other specified postprocedural states
CPT/HCPCS: 97110; 97530

== ENCOUNTER 2023-03-03 03:03 | Day surgery (SDC) | payer MEDICARE, SELFPAY ==
[2023-02-25 08:33] VITALS: BMI 26.6
--- NOTE | 2023-02-25 08:39 | PC.NURSE ---
Addendum entered by Pushpa Angulo RN 02/25/23 08:42: PT INFORMED TO STOP ALL VITAMINS AND SUPPLEMENTS 3 DAYS PRIOR TO SURGERY, LAST DOSE TO BE TAKEN 02/27/23 - UNDERSTANDING VOICED Original Note: Report to the Outpatient Waiting Room, entrance under the green pavilion located off [facility], at time __1230 on date __03/03/23 . Planned Procedure Time: __2:30 PM . Time changes happen often and if your time is changed the preop area will call you the afternoon before. - You and your visitor will be asked to self-screen and do not enter if you have any COVID symptoms. - A mask is optional within the hospital at this time. Patients may have clear liquids (water, carbonated beverages, clear teas, apple juice) until 3 hours prior to surgery (1130 AM) with a maximum of 20 ounces. - No food from midnight until time of surgery - Infants may have breast milk until 4 hours before surgery, formula 6 hours prior to surgery. - Children will be allowed to drink immediately following surgery. If applicable, please bring a bottle or sippy cup to assist with drinking. Juice, water, soda, and popsicles are readily available. For infants on formula, please bring formula the day of surgery. Pacifiers are allowed. Take the following medications with a SIP of water the morning of surgery: _LEVOTHYROXINE, LIOTHYRONINE, & TYLENOL IF NEEDED__ DO NOT STOP ANY OF YOUR OTHER PRESCRIPTION MEDICATIONS PRIOR TO SURGERY ?EXCEPT THE FOLLOWING Medications to discontinue _ASPIRIN PER DR. SHEPHERD, Date to take last dose CALL DR. SHEPHERD'S OFFICE FOR INSTRUCTIONS_ Please no make-up, nail [facility], hairspray, perfume, deodorant, or body powder the day of surgery. No jewelry (including any body piercings) or valuables the day of surgery, leave them at home. Please take a shower or bath the night before, or the morning of, surgery with an antibacterial soap. Wear comfortable, loose fitting clothing. Children are encouraged to wear pajamas. - Jewelry must be removed prior to entering the operating room. Rings and piercings that are not removed may be cut off. - The hospital will not accept responsibility for valuables. - Please leave all valuables, including medications, at home the day of surgery. If you are going home after surgery, a licensed stunt driver must drive you home. - NO public transportation without another adult if you receive anesthesia. - We recommend that an adult stay with you for 24 hours following discharge. - We also recommend that you do not drive, make important decision, drink alcoholic beverages, or take any drugs that were not prescribed by your health care provider for at least 24 hours after your discharge time. For Pediatric surgeries, we recommend two adults accompany the child home. Follow any additional instructions given to you from your surgeon. If you or anyone in your household have experienced Covid symptoms in the past week, please notify your surgeon or the nurse liaison at the phone number below for possible testing. Telephone instructions given to ____PT and asked if any additional questions and then verbalized understanding. Patient advised to call surgeon office or pre surgery nurse liaison [phone] if any additional questions.
--- NOTE | 2023-03-02 15:06 | WPDANESEPPF ---
Anes - Initial Pre Proc Eval Procedure: Operation Date: 03/03/23 14:30 Proposed Procedures p Right Shoulder Manipulation under Anesthesia with Cortisone Injection - Ryder Ch MD Date/Time: 03/02/23 15:06 Surgeon: Ryder Ch MD Pre Op Diagnosis: Rt Shldr Adhesive Capsulitis Patient Data Age: 73 Gender: F Height: 1.6 m Weight: 68.36 kg Allergies Allergy/AdvReac Type Severity Reaction Status Date / Time Sulfa (Sulfonamide Allergy Unknown Rash Verified 03/03/23 13:06 Antibiotics) solifenacin Allergy Headache Verified 03/03/23 13:06 and weakness alendronate sodium AdvReac Stomach Verified 03/03/23 13:06 [From Fosamax] issues ibandronate sodium AdvReac Stomach Verified 03/03/23 13:06 [From Boniva] issues Home Medications Medication Instructions Recorded Confirmed Type aspirin 325 mg tablet 325 mg PO DAILY 02/09/19 03/03/23 History cranberry 400 mg capsule 400 mg PO DAILY 02/09/19 03/03/23 History mecobalamin (vitamin B12) 1,000 1,000 mcg sublingual DAILY 02/09/19 03/03/23 History mcg disintegrating tablet,sublingual levothyroxine 75 mcg tablet 75 mcg PO DAILY #90 tabs 05/14/21 03/03/23 Rx (Synthroid) rosuvastatin 20 mg tablet 20 mg PO DAILY #90 tabs 05/14/21 03/03/23 Rx cholecalciferol (vitamin D3) 50 4,000 unit PO DAILY 11/11/21 03/03/23 History mcg (2,000 unit) tablet dietary supplement 1 cap PO DAILY 11/11/21 03/03/23 History liothyronine 5 mcg tablet See Rx Instructions .Route 05/14/22 03/03/23 Rx .COMPLEX #90 tabs omeprazole 20 mg capsule,delayed See Rx Instructions .Route BID 05/14/22 03/03/23 Rx release #180 caps acetaminophen 500 mg tablet 500 mg PO Q6H PRN Pain 08/12/22 03/03/23 History Patient hx anesthesia problems: none Family hx anesthesia problems: none Results Review: All pre-operative results and documents have been reviewed as part of the pre-operative evaluation. [facility] Past Medical History Medical History Achalasia Atherosclerotic heart disease of [place] coronary artery without angina pectoris Carotid artery occlusion Chicken pox COVID-19 Essential tremor Headache Hyperlipidemia Hypothyroid Osteoporosis Peptic ulcer disease Unspecified atherosclerosis Surgical History Surgical History H/O breast surgery H/O cataract removal with insertion of prosthetic lens H/O: hysterectomy (~04/1982) History of hip surgery History of rectal surgery History of thyroidectomy (~04/1984) Hx of cholecystectomy (~04/2007) Hx of vaginal surgery Family History Family History Mother Diabetes mellitus Cerebrovascular accident, Onset Age: 94 Father Cerebrovascular accident, Onset Age: 89 Family history of Parkinson's disease Family history of Alzheimer's disease, Onset Age: 89 Sibling Cerebrovascular accident Other Family history of glaucoma Family history of thyroid disease Hypertension Social History Social History Smoking status: Never smoker Second hand tobacco smoke exposure: No Alcohol intake: current Alcohol use details: 2/MONTH Substance use: never Substance use type: does not use Lack of Transportation: No Lack of Food: Never True Current Housing: I Have Housing Concerned About Future Housing: No Difficulty Paying Gas/Electric Bills: No Difficulty Paying for Meds: No Currently Unemployed: No Education: Master's Degree or Higher Difficulty w/ Childcare or Family Care: No Living arrangements: with family Spiritual care concerns: No Anes - Eval Final PreProcedure Day of Procedure 03/02/23 15:06 Patient weight: overweight Heart: regular rate and rhythm Lungs: clear to auscultation Airway: Mallampati scale
--- NOTE | 2023-03-03 07:53 | WPDHPUPDATE1 ---
History and Physical Update Update Date/Time: 03/03/23 07:53 History and Physical has been reviewed, including an updated exam of the patient. There are NO changes in the patient's condition. Risks, benefits, and alternatives have been discussed and questions answered. Patient agrees to proceed with procedure.
[2023-03-03 12:32] VITALS: BP 153/49; PULSE 64; RESP 18; TEMP 36.7; O2SAT 100
[2023-03-03] MEDS: LACTATED RINGERS 1,000 ML 30 ML IV CONT (13:00)
[2023-03-03] MEDS: CELECOXIB 200 MG CAPSULE PO (13:01)
[2023-03-03] MEDS: ACETAMINOPHEN 500 MG TABLET 1000 MG PO (13:01)
--- NOTE | 2023-03-03 13:42 | W.PM.PROC2 ---
Procedure Note - Detailed Date of Procedure 03/03/23 Pre-op Diagnosis Rt Shoulder Adhesive Capsulitis Post-op Diagnosis Same Procedure Performed Manipulation Under Anesthesia and INJECTION RIGHT SHOULDER Surgeon Ryder hC MD Anesthesia General Description of Procedure THE PATIENT WAS TAKEN TO THE OPERATING ROOM AND PLACED UNDER GENERAL ANESTHESIA. ONCE HE WAS CHEMICALLY PARALYZED THE RIGHT SHOULDER WAS MANIPULATED UNTIL ABOUT 180 DEG OF FLEXION AND ABDUCTION, 80 DEG OF EXTERNAL ROTATION, AND INTERNAL ROTATION TO L5 WERE ACHIEVED. AUDIBLE ADHESIOLYSIS WAS OBSERVED. NEXT, THE RIGHT SHOULDER WAS PREPPED AND DRAPED STERILELY. DEPO MEDROL 80 MG X 1 CC AND MARCAINE 0.5% 5 CC WERE INJECTED IN TO THE RIGHT SHOULDER JOINT. THE PATIENT WAS SENT TO THE RECOVERY ROOM ONCE GENERAL ANESTHESIA WAS REVERSED, IN STABLE CONDITION. Estimated Blood Loss 0 Complications No immediate complications Condition Stable Disposition PACU
[2023-03-03] MEDS: BUPivacaine HCL 0.5% PF 30 ML VIAL 5 ML INFILTRATE (14:13)
[2023-03-03 14:27] VITALS: BP 119/61; PULSE 81; RESP 12; O2SAT 97
[2023-03-03 14:55] VITALS: BP 134/52; PULSE 72; RESP 12; O2SAT 97
== END 2023-03-03 15:26 | disposition home or self-care (01) ==
PROVIDERS: PCP Internal Medicine; Visit Provider Orthopaedic Surgery
PROC: (CPT 23700; principal; 2023-03-03 14:30)
DX: M75.01 Adhesive capsulitis of right shoulder (principal); M25.511 Pain in right shoulder; E78.5 Hyperlipidemia, unspecified; E03.9 Hypothyroidism, unspecified
CPT/HCPCS: 23700; 20610; A9270; J0330; J1040; J2405; J2704; J3010; J7120

== ENCOUNTER 2023-04-08 14:00 | Outpatient (RCR) | payer MEDICARE, SELFPAY ==
--- NOTE | 2023-03-04 14:00 | PTOPEVAL1 ---
Assessment and note entered by Bishop Richards Evaluation Information Assessment Status Evaluation Diagnosis right shoulder pain, s/p manipulation Onset 03/03/23 Subjective Information Pt. reports she underwent shoulder manipulation yesterday. She reports she underwent rotator cuff repair in August. She states that she did not progress well and developed increasing stiffness. She reports she is using pain medication per recommendation of her doctor. She reports that she has not started any exercise since her manipulation yesterday. She reports that her goal is to decrease her right shoulder pain and be able to use the right arm normally. Reported Pain Level Pain Score 3: Self Report Assessment PT Clinical Summary Pt. is a 73 year old female who enters the clinic 1 day post manipulation of the left shoulder due to adhesive capsulitis. Pt. presents with impaired ROM, impaired strength, left shoulder pain and functional decline. Continued skilled PT is indicated in order to improve these areas to allow the pt. to be able to complete all IADL's without limitation. Plan of Care Interventions Electrical Stimulation,Hot Pack/Cold Pack,Manual Therapy,Neuro Re-education,Patient/Caregiver Educati,Therapeutic Activities,Therapeutic Exercise PT Services Indicated Yes Treatment Frequency and 5x/week x 10 visits Duration These treatments will address the objective and functional deficits as defined above. The patient will be advanced safely and appropriately in order for the patient to progress towards his/her prior level of function. Additional exercises will be introduced and as well as a comprehensive home exercise program upon discharge, if needed, ?to ensure carryover of functional gains achieved in the clinic. This treatment plan has been reviewed and agreement upon by the patient.
--- NOTE | 2023-03-04 14:01 | OPREHPOC ---
Outpatient Therapy Plan of Care This is a Multidisciplinary Plan of Care that may contain components documented by all disciplines (PT, OT, and ST.) PT Problem 1 PT Problem #1 Knowledge Deficit PT Goal 1 Goal pt. will be independent with a HEP addressing ROM spiritism at the left shoulder Target Visit 2 PT Problem 2 PT Problem #2 Impaired Range of Motion PT Goal 1 Goal -Pt. will achieve 160 degrees active left shoulder fleixon against gravity -Pt. will achieve 85 degrees active left shoulder ER against gravity Target Visit 10 PT Problem 3 PT Problem #3 Impaired Strength PT Goal 1 Goal Pt. will present with 4/5 gross proximal right u.e . strength Target Visit 10 PT Problem 4 PT Problem #4 Impaired Functional Mobil PT Goal 1 Goal Pt. will present with less than 50% limitaiton on the Quick DASH
--- NOTE | 2023-03-18 10:37 | PTOPEVAL1 ---
Assessment and note entered by Bishop Richards Evaluation Information Assessment Status Progress Diagnosis right shoulder pain, s/p manipulation Onset 03/03/23 Subjective Information Pt. reports she has noticed the improvements in ROM since surgery. She states that she is having improvements in strength, and notices that she was able to lift a pot of chili recently. Despite progress in strength and mobility, she still notices weakness with overhead activities and stiffness in all directions of right shoulder movement. She reports that her goal remains to improve her strength and mobility. Reported Pain Level Pain Score 2: Self Report Pain Score 2: Self Report Pain Score 4: Self Report Assessment PT Clinical Summary Mrs. Bustamante has attended a total of 10 treatment sessions in the past 2 weeks. She demonstrates significant improvement in ROM since undergoing manipulation combined with rehab. At this time she continues to present with remaining ROM deficits at the right shoulder as well as continued weakness. Skilled PT is recommended to continue to address these areas to optimize pt. independence with overhead activities. Plan of Care Interventions Electrical Stimulation,Hot Pack/Cold Pack,Manual Therapy,Therapeutic Activities,Therapeutic Exercise PT Services Indicated Yes Treatment Frequency and 2x/week x 8 visits Duration These treatments will address the objective and functional deficits as defined above. The patient will be advanced safely and appropriately in order for the patient to progress towards his/her prior level of function. Additional exercises will be introduced and as well as a comprehensive home exercise program upon discharge, if needed, ?to ensure carryover of functional gains achieved in the clinic. This treatment plan has been reviewed and agreement upon by the patient.
--- NOTE | 2023-10-29 15:35 | PTOPDC ---
Assessment and note entered by Bishop Richards Discharge Information Assessment Status Discharge - Pt Not Present Diagnosis right shoulder pain, s/p manipulation Onset 03/03/23 Assessment PT Clinical Summary Pt. was assessed during last treatment on 04/08/23 and demonstrates improved strength, increasing weight with exercise. Less scapulothoracic elevation is noted with resisted exercise against gravity on this date. She contacted the clinic stating that she was doing well and would continue with her HEP. She will be discharged from our care at this time. Plan of Care PT Services Indicated No
== END 2023-05-29 08:22 | disposition home or self-care (01) ==
LOC: ANHPT 14:00
PROVIDERS: PCP Internal Medicine; Visit Provider Orthopaedic Surgery
DX: M75.01 Adhesive capsulitis of right shoulder (principal)
CPT/HCPCS: 97014; 97110; 97112; 97116; 97140; 97161; 97530; G0283

== ENCOUNTER → 2023-06-05 13:18 | Outpatient (CLI) | payer MEDICARE, SELFPAY ==
--- NOTE | ~2023-06-05 | MR_ITS ---
EXAMINATION: MR brain/brain stem wo con DATE: 06/05/2023 14:09 INDICATION: Asymmetric tremor in right hand. TECHNIQUE: Magnetic resonance imaging (MRI) of the brain and brainstem was performed without intraven ous contrast. COMPARISON: Brain MRI 12/06/2020, carotid ultrasound 11/07/13 FINDINGS: There is a focus of increased T2-weighted signal intensity in the left frontal lobe white m atter, which is normal as an isolated finding. There is no intracranial hemorrhage, acute infarction, or abnormal intracranial mass lesion. The ventricles are normal in size. There is mild mucosal thick ening in the paranasal sinuses. There are likely changes of ocular lens replacement surgeries. There is a trace left mastoid effusion. There is chronic absence of the normal left internal carotid artery flow void, which may be seen with total occlusion or slow flow.. IMPRESSION: 1. Chronic absence of the normal left internal carotid artery flow void, which may be seen with total occlusion or slow flow.. Reviewed, dictated and finalized at location A. [facility] SHIP
== END ==
PROVIDERS: PCP Internal Medicine; Visit Provider Student in an Organized Health Care Education/Training Program
DX: R25.1 Tremor, unspecified (principal)
CPT/HCPCS: 70551

== ENCOUNTER 2023-06-11 09:26 | Outpatient (CLI) | payer MEDICARE, SELFPAY ==
--- NOTE | ~2023-06-11 | XR_ITS ---
AP view of the pelvis and AP and lateral views of the left hip Clinical history: Pain Findings: No acute fracture or dislocation is seen. Osseous alignment is anatomic. Bilateral hip and SI joint spaces are preserved. Soft tissues are unremarkable. Impression: No significant abnormality is seen. Reviewed, dictated and finalized at [facility]. [employer] SERVICE COORDINATOR Impression: No significant abnormality is seen.
== END 2023-06-11 09:27 ==
PROVIDERS: PCP Internal Medicine; Visit Provider Nurse Practitioner Family
DX: M25.552 Pain in left hip (principal); M53.3 Sacrococcygeal disorders, not elsewhere classified
CPT/HCPCS: 73502

== ENCOUNTER 2023-10-27 11:04 | Outpatient (CLI) | payer MEDICARE, SELFPAY ==
--- NOTE | ~2023-10-27 | US_ITS ---
EXAMINATION: US soft tissue UE LT DATE: 10/27/2023 11:14 INDICATION: M25.552 - Pain in left elbow. TECHNIQUE: Grayscale and Doppler ultrasound images of the left elbow were obtained. COMPARISON: None. FINDINGS: The area of clinical concern in the left anteromedial elbow was sonographically interrogate d, revealing no abnormality. IMPRESSION: No sonographic abnormality in the area of clinical concern. Reviewed, dictated and finalized at location K.
== END 2023-10-27 11:05 ==
LOC: GOSHIMG 11:05
PROVIDERS: PCP Clinical Nurse Specialist; Visit Provider Clinical Nurse Specialist
DX: M25.551 Pain in right hip (principal); M25.552 Pain in left hip; R22.9 Localized swelling, mass and lump, unspecified
CPT/HCPCS: 76882

== ENCOUNTER 2023-12-01 08:06 | Outpatient (CLI) | payer MEDICARE, SELFPAY ==
[2023-12-01 13:07] LABS: Basophils Percent Auto 0.6 % (0.2-1.2); Eosinophils Absolute Auto 0.1 K/mm3 (0-0.3); Hematocrit 41.5 % (37.0-47.0); Hemoglobin 13.3 g/dL (12.0-15.0); Immature Granulocyte Absolute 0.02 K/mm3 (0.00-0.031); Immature Granulocyte Percent A 0.3 % (0-0.5); Lymphocytes Absolute Auto 1.74 K/mm3 (0.9-3.2); Lymphocytes Percent Auto 25.3 % (18.3-44.2); Mean Corpuscular Hemoglobin 30.4 pg (26-34); Mean Corpuscular Volume 94.7 fl (80-100); Mean Platelet Volume 12.2 fl (7.4-10.4); Monocytes Absolute Auto 0.5 K/mm3 (0.1-0.6); Monocytes Percent Auto 6.8 % (2.6-8.5); Neutrophils Absolute Auto 4.6 K/mm3 (1.3-6.7); Platelet Count Result 213 k/mm3 (150-375); Red Blood Count 4.38 M/mm3 (4.2-5.4); White Blood Count 6.9 K/mm3 (4.5-10.0)
[2023-12-01 13:09] LABS: Alanine Aminotransferase 15 U/L (6-35); Albumin Level 4.4 g/dL (3.5-5.1); Alkaline Phosphatase 66 U/L (38-126); Anion Gap 9 mmol/L (4-12); Aspartate Amino Transferase 40 U/L (14-36); Bilirubin,Total 0.7 mg/dL (0.2-1.3); Blood Urea Nitrogen 18 mg/dL (7-17); Calcium 9.4 mg/dL (8.4-10.2); Carbon Dioxide 29 mmol/L (22-30); Chloride 101 mmol/L (98-107); Cholesterol 152 mg/dL (0-200); Estimated Glomerular Filt Rate > 60; Glucose 90 mg/dL (65-110); HDL Direct 74 mg/dL; Potassium 4.5 mmol/L (3.4-5.0); Sodium 139 mmol/L (137-145); Triglycerides 82 mg/dL (<150)
[2023-12-01 13:20] LABS: LDL Cholesterol Direct 53 mg/dL
[2023-12-01 13:37] LABS: Thyroid Stimulating Hormone 0.704 uIU/mL (0.465-4.680)
[2023-12-01 14:07] LABS: Vitamin B12 > 1000.0 pg/mL (239-931)
[2023-12-01 15:45] LABS: Free T4 Free Thyroxine 1.08 ng/mL (0.78-2.19); Vitamin D 25 Hydroxy 68.8 ng/mL
== END 2023-12-01 08:07 | disposition home or self-care (01) ==
PROVIDERS: PCP Internal Medicine; Visit Provider Clinical Nurse Specialist
DX: D64.9 Anemia, unspecified (principal); E03.9 Hypothyroidism, unspecified; E55.9 Vitamin D deficiency, unspecified; I25.10 Atherosclerotic heart disease of native coronary artery without angina pectoris; I65.22 Occlusion and stenosis of left carotid artery
CPT/HCPCS: 36415; 80053; 80061; 82306; 82607; 84439; 84443; 85025

== ENCOUNTER 2023-12-09 08:16 | Outpatient (CLI) | payer MEDICARE, SELFPAY ==
--- NOTE | ~2023-12-09 | DEXA_ITS ---
Bone Density Report Name: ANDREA LYLE Age: 73 Sex: Female Ethnicity: White Date of : 1950 Indication: postmenopausal; screening for osteoporosis; height loss; prior fracture; hysterectomy; secondary osteoporosis; Referring Provider: CONRAD ESTRADA Study: Bone densitometry was performed. Exam Date: December 09, 2023 Accession number: [id number] Bone Density: Region BMD T-score Z-score Classification AP Spine(L1-L4) 0.840 -1.9 0.6 Osteopenia Femoral Neck (Left) 0.632 -2.0 0.2 Osteopenia Total Hip (Left) 0.787 -1.3 0.6 Osteopenia Femoral Neck (Right) 0.648 -1.8 0.3 Osteopenia Total Hip (Right) 0.778 -1.3 0.5 Osteopenia Total Hip Mean 0.783 -1.3 0.6 Osteopenia World Health Organization criteria for BMD impression classify patients as: Normal (T-score at or above -1.0), Osteopenia (T-score between -1.0 and -2.5), or Osteoporosis (T-score at or below -2.5). 10-year Fracture Risk: FRAX not reported because: Prior hip or vertebral fracture Clinical Information Provided by Patient: Have had a previous hip or vertebral fracture Has had a low trauma fracture Has secondary osteoporosis Has used the following medications: Vitamin D Has the following medical conditions: Hysterectomy Patient maximum height was 64 Menopause Age: 32 Does not regularly consume dairy products Drinks caffeinated beverages Onset of menses at age 10 Number of children 1 Impression: The patient has low bone mass, based on the Left Femoral Neck T-score. The patient has risk factors, including: previous fracture. Discussion: INCREASED RISK OF FRACTURE DUE TO HISTORY OF FRACTURE. The patient's previous fracture puts the patient at high risk of a future fracture. In untreated patients, the risk of osteoporotic fracture increases approximately two-fold for each 1.0 SD decrease in T-score. Low bone density is not the only risk factor for fracture; also consider factors such as patient's age, frailty or poor health, risk of falling, risk of injury, previous osteoporotic fracture, family history of osteoporosis, cigarette smoking, low body weight, etc. Not everyone with a low trauma fracture has osteoporosis; osteomalacia and other metabolic bone disorders should also be considered. Patients who have osteoporosis should be evaluated for specific diseases and conditions (secondary causes) that may cause or contribute to bone loss and fracture risk. National Osteoporosis Foundation (NOF) recommends pharmacologic intervention for patients with a prior hip or vertebral fracture regardless of BMD T-score. The patient should follow a healthful lifestyle (good nutrition with adequate calcium and vitamin D, and appropriate weight-bearing exercise). Follow-Up: Consider a repeat BMD and Vertebral Fracture Assessment (VFA) exam in 2
== END 2023-12-09 08:17 | disposition home or self-care (01) ==
LOC: ANHIMG 08:21
PROVIDERS: PCP Internal Medicine; Visit Provider Clinical Nurse Specialist
DX: M85.852 Other specified disorders of bone density and structure, left thigh (principal); M85.851 Other specified disorders of bone density and structure, right thigh; M85.88 Other specified disorders of bone density and structure, other site
CPT/HCPCS: 77080

== ENCOUNTER 2024-01-29 09:04 | Outpatient (CLI) | payer MEDICARE, SELFPAY ==
[2024-01-29 16:50] LABS: Add Urine Microscopic? YES; Appearance Urine Clear (Clear); Bacteria Urine None Seen /hpf; Bilirubin Urine Negative (Negative); Blood Urine Negative (Negative); Color Urine Yellow (Yellow); Glucose Urine UA Negative (Negative); Ketones Urine Negative (Negative); Leukocyte Esterase Ur Trace LEU/UL (Negative); Nitrate Urine Negative (Negative); Non Pathogenic Casts 0-2; Protein Urine Negative (Negative); RBC Urine 0-2 /hpf (0-2); Specific Grav Ur 1.008 (1.001-1.035); Squamous Epithelial Cell Urine None Seen /hpf (Few); Urobilinogen Urine 0.2 mg/dL (<2.0); WBC Urine 0-5 /hpf (0-3)
[2024-01-29 17:19] LABS: Alanine Aminotransferase 15 U/L (6-35); Albumin Level 4.1 g/dL (3.5-5.1); Alkaline Phosphatase 70 U/L (38-126); Anion Gap 9 mmol/L (4-12); Aspartate Amino Transferase 29 U/L (14-36); Bilirubin,Total 0.6 mg/dL (0.2-1.3); Blood Urea Nitrogen 21 mg/dL (7-17); Calcium 9.3 mg/dL (8.4-10.2); Carbon Dioxide 30 mmol/L (22-30); Chloride 102 mmol/L (98-107); Estimated Glomerular Filt Rate > 60; Glucose 87 mg/dL (65-110); Potassium 4.6 mmol/L (3.4-5.0); Sodium 141 mmol/L (137-145)
[2024-01-29 17:35] LABS: Basophils Percent Auto 0.4 % (0.2-1.2); Eosinophils Absolute Auto 0.1 K/mm3 (0-0.3); Eosinophils Percent Auto 1.7 % (0-4.4); Hematocrit 40.1 % (37.0-47.0); Hemoglobin 13.1 g/dL (12.0-15.0); Immature Granulocyte Absolute 0.03 K/mm3 (0.00-0.031); Immature Granulocyte Percent A 0.4 % (0-0.5); Lymphocytes Absolute Auto 1.84 K/mm3 (0.9-3.2); Mean Corpuscular HGB Conc 32.7 g/dl (32-36); Mean Corpuscular Hemoglobin 30.4 pg (26-34); Mean Platelet Volume 11.6 fl (7.4-10.4); Monocytes Absolute Auto 0.5 K/mm3 (0.1-0.6); Monocytes Percent Auto 7.5 % (2.6-8.5); Neutrophils Absolute Auto 4.5 K/mm3 (1.3-6.7); Platelet Count Result 224 k/mm3 (150-375); Red Blood Count 4.31 M/mm3 (4.2-5.4); White Blood Count 7.1 K/mm3 (4.5-10.0)
[2024-01-29 17:41] LABS: Thyroid Stimulating Hormone 0.814 uIU/mL (0.465-4.680)
== END 2024-01-29 09:05 | disposition home or self-care (01) ==
LOC: ANHGOSHLAB 09:05
PROVIDERS: PCP Internal Medicine; Visit Provider Clinical Nurse Specialist
DX: R53.1 Weakness (principal); R30.0 Dysuria; R53.83 Other fatigue
CPT/HCPCS: 36415; 80053; 81001; 84443; 85025

== ENCOUNTER 2024-04-18 10:48 | Emergency (ER) | payer MEDICARE, SELFPAY ==
--- NOTE | ~2024-04-18 | CT_ITS ---
EXAMINATION: CT cervical spine wo con DATE: 04/18/2024 11:29 INDICATION: Fall with head injury TECHNIQUE: Computed tomography (CT) of the cervical spine was performed without intravenous contrast. Automated exposure control and iterative reconstruction technique were employed. The dose-length pro duct was 151.86 mGy-cm. COMPARISON: Radiographs dated 06/09/2022 FINDINGS: Chronic reversal of the normal cervical adenosis and 1-2 mm anterolisthesis C3 on C4 and C4-C5. Verte bral body heights are normal. No fracture. Severe disc height loss with severe bilateral uncovertebra l osteoarthritis at C6-C7. Moderate disc height loss at C5-C6 and mild disc height loss at remaining cervical and upper thoracic levels. Posterior endplate osteophytes contribute to mild central canal s tenosis at C3-C4, C5-C6 and C6-C7. There is multilevel bilateral severe cervical facet osteoarthritis with chronic fusion across the bilateral C4-C5 facet joints. Atherosclerotic calcifications at the b ilateral carotid bulbs. Cervical soft tissues are unremarkable. Minimal biapical pleural-parenchymal scarring. Visualized portion of the proximal esophagus appears patulous. IMPRESSION: 1. Severe cervical spondylosis with no acute osseous abnormality. Reviewed, dictated and finalized at location B. [facility] WORK[facility]
--- NOTE | ~2024-04-18 | CT_ITS ---
EXAMINATION: CT brain wo con DATE: 04/18/2024 11:29 INDICATION: Fall with head injury TECHNIQUE: Computed tomography (CT) of the head was performed without intravenous contrast. Sagittal and coronal reconstructions were performed. The mA was adjusted according to patient size. Iterative reconstruction technique was employed. The dose-length product was 605.33 mGy-cm. COMPARISON: Brain MR dated 06/05/2023 FINDINGS: No fracture. No acute intracranial hemorrhage, acute infarction or mass/mass effect. There is symmet breonna prominence of the sulci and subarachnoid spaces overlying the convexities consistent with mild ag e-appropriate diffuse cerebral volume loss. Mild scattered periventricular and subcortical white mat ter hypoattenuation consistent with chronic small vessel ischemic disease. Ventricles are normal and symmetric. The orbits and mastoid air cells are normal. Mild mucosal thickening in the left sphenoid and bilateral ethmoid sinuses. IMPRESSION: 1. Normal aging brain. No fracture or acute intracranial process. Reviewed, dictated and finalized at location B. L OPERATOR
--- NOTE | ~2024-04-18 | XR_ITS ---
XR knee LT 3V Ordering provider: Anais Weinberg MD History: . FALL/KNEE PAIN . Comparison: None. FINDINGS: BONES: No acute fracture or dislocation. JOINT SPACES: Normal. SOFT TISSUES: Normal. IMPRESSION: No acute osseous abnormality left knee. Reviewed, dictated and finalized at location A. OON PILOT
[2024-04-18 11:08] VITALS: BP 147/55; PULSE 63; RESP 18; TEMP 36.2; O2SAT 100
[2024-04-18 12:06] VITALS: BP 139/49; PULSE 60; RESP 19; O2SAT 100
--- NOTE | 2024-04-18 12:42 | ED_ITS ---
HPI - Head Injury General Chief complaint: Head Injury Stated complaint: fall 04/09/24 h/a, nausea Time Seen by Provider: 04/18/24 12:38 Source: patient and family Mode of arrival: ambulatory Limitations: no limitations History of Present Illness HPI Narrative: PATIENT CAME TO THE ED BY PRIVATE CAR COMPLAINING OF A FALL ON April. SHE REPORT HITTING THE LEFT SIDE OF HER HEAD ON A POLE WITH IN HER BASEMENT. NO LOSS OF CONSCIOUSNESS. PATIENT BEEN COMPLAINING OF NECK PAIN AND HEADACHE AND NAUSEA SINCE. PATIENT ON BABY ASPIRIN ONCE A DAY. PATIENT WAS COMPLAINING OF PAIN AT THE LEFT KNEE.. SHE DENIES OTHER INJURIES. Related Data Home Medications ?Medication ?Instructions ?Recorded ?Confirmed ?Last Taken ?Type aspirin 325 mg tablet 325 mg PO DAILY 02/09/19 12/08/23 08/13/22 History cranberry 400 mg capsule 400 mg PO DAILY 02/09/19 12/08/23 08/16/22 History mecobalamin (vitamin B12) 1,000 1,000 mcg sublingual DAILY 02/09/19 12/08/23 08/16/22 History mcg disintegrating tablet,sublingual cholecalciferol (vitamin D3) 50 4,000 unit PO DAILY 11/11/21 12/08/23 08/16/22 History mcg (2,000 unit) tablet dietary supplement 1 cap PO DAILY 11/11/21 12/08/23 08/16/22 History vitamin B complex 1 cap PO DAILY 10/27/23 12/08/23 Unknown History Allergies Allergy/AdvReac Type Severity Reaction Status Date / Time Sulfa (Sulfonamide Allergy Unknown Rash Verified 04/18/24 10:50 Antibiotics) alendronate sodium (From AdvReac Stomach Verified 04/18/24 10:50 Fosamax) issues ibandronate sodium (From AdvReac Stomach Verified 04/18/24 10:50 Boniva) issues solifenacin AdvReac Headache Verified 04/18/24 10:50 and weakness Review of Systems Review of Systems: All systems reviewed & are unremarkable except as noted in HPI and below PMFSH Past Medical History Medical History Bilateral lower extremity edema Hospital discharge follow-up COVID-19 Atherosclerotic heart disease of [place] coronary artery without angina pectoris Unspecified atherosclerosis Headache Essential tremor Carotid artery occlusion Achalasia Chicken pox Peptic ulcer disease Osteoporosis Hypothyroid Hyperlipidemia Surgical History Surgical History Status post surgical removal of malignant neoplasm of skin H/O rotator cuff surgery H/O cataract removal with insertion of prosthetic lens History of rectal surgery Hx of vaginal surgery History of hip surgery H/O breast surgery H/O: hysterectomy (~04/1982) History of thyroidectomy (~04/1984) Hx of cholecystectomy (~04/2007) Family History Family History Mother Diabetes mellitus Cerebrovascular accident, Onset Age: 94 Father Cerebrovascular accident, Onset Age: 89 Family history of Parkinson's disease Family history of Alzheimer's disease, Onset Age: 89 Sibling Cerebrovascular accident Other Family history of glaucoma Family history of thyroid disease Hypertension Social History Social History Smoking status: Never smoker Second hand tobacco smoke exposure: No Alcohol intake: current Alcohol use details: 2/MONTH Substance use: never Substance use type: does not use Do You Feel Safe in your Home?: Yes Lack of Transportation: No Lack of Food: Never True Current Housing: I Have Housing Concerned About Future Housing: No Difficulty Paying Gas/Electric Bills: No Difficulty Paying for Meds: No Currently Unemployed: No Education: Master's Degree or Higher Difficulty w/ Childcare or Family Care: No Living arrangements: with family Spiritual care concerns: No Exam Narrative: GENERAL APPEARANCE: WELL-DEVELOPED, WELL-NOURISHED SKIN: NORMAL COLOR HEAD: NORMOCEPHALIC, DIFFUSE TENDERNESS LEFT SIDE OF THE HEAD, EYES: CLEAR CONJUNCTIVA ENT: OROPHARYNX NORMAL, EARS NORMAL, NOSE NORMAL NECK: SUPPLE, NONTENDER CHEST AND RESPIRATORY: AIRWAY PATENT, NO RESPIRATORY DISTRESS, NO ACCESSORY MUSCLE USE HEART: REGULAR RATE/RHYTHM ABDOMEN: SOFT, NONTENDER, NO ORGANOMEGALY, QUIET BOWEL SOUNDS VASCULAR: NORMAL PERIPHERAL PULSES, NORMAL CAPILLARY REFILL. MUSCULOSKELETAL: LEFT KNEE EXAM SHOWED NO SWELLING, NO BRUISES, NO DEFORMITY, LIMITED RANGE OF MOTION NEUROLOGIC: ALERT AND ORIENTED ?3, CERAMIC RESTORER IS NORMAL TESTED, NO GROSS MOTOR DEFICIT Course Vital Signs Vital signs: Vital Signs Temperature 36.2 C L 04/18/24 11:08 Pulse Rate 63 04/18/24 11:08 Respiratory Rate 18 04/18/24 11:08 Blood Pressure 147/55 H 04/18/24 11:08 Pulse Oximetry 100 04/18/24 11:08 Oxygen Delivery Room Air 04/18/24 11:08 Temperature 36.2 C L 04/18/24 11:08 Pulse Rate 60 04/18/24 12:06 Respiratory Rate 19 04/18/24 12:06 Blood Pressure 139/49 L 04/18/24 12:06 Pulse Oximetry 100 04/18/24 12:06 Oxygen Delivery Room Air 04/18/24 11:08 MDM - Head Injury MDM Narrative Medical decision making narrative: PATIENT HAD A FALL WITH HEAD INJURY, CONCUSSION WITHOUT LOSS OF CONSCIOUSNESS, POST CONCUSSION SYNDROME ARE MY CONCERN CT HEAD AND CERVICAL SPINE SHOWED NO ACUTE ABNORMALITY, X-RAY OF THE LEFT KNEE SHOWED NO ACUTE ABNORMALITIES. DISCHARGED WITH A DIAGNOSIS OF POST CONCUSSION SYNDROME Differential Diagnosis Differential diagnosis: Likely other ( ABOVE) Imaging Data My impression: Impressions Head CT 04/18/24 11:31 IMPRESSION: 1. Normal aging brain. No fracture or acute intracranial process. Cervical Spine CT 04/18/24 11:34 IMPRESSION: 1. Severe cervical spondylosis with no acute osseous abnormality. Knee X-Ray 04/18/24 13:17 IMPRESSION: No acute osseous abnormality left knee. Radiologist's impression: Impressions Head CT 04/18/24 11:31 IMPRESSION: 1. Normal aging brain. No fracture or acute intracranial process. Cervical Spine CT 04/18/24 11:34 IMPRESSION: 1. Severe cervical spondylosis with no acute osseous abnormality. Critical Care Time Critical Care Time Critical Care Time: No Discharge Plan Discharge Clinical Impression: Post concussion syndrome Patient Disposition: Home, Self-Care Condition: Stable Instructions: Post Concussion Syndrome (ED) Additional Instructions: RETURN IF SYMPTOMS ARE WORSENING , CALL YOUR FAMILY PHYSICIAN FOR APPOINTMENT, TAKE TYLENOL NEEDED FOR ACHES AND PAIN, CONTINUE HOME MEDICATIONS. Patient Language: Slovak Prescriptions: No Action aspirin 325 mg tablet 325 mg PO DAILY mecobalamin (vitamin B12) 1,000 mcg tablet,disintegrating 1,000 mcg SUBLINGUAL DAILY cranberry 400 mg capsule 400 mg PO DAILY levothyroxine [Synthroid] 75 mcg tablet 75 mcg PO DAILY Qty: 90 3RF liothyronine 5 mcg tablet See Rx Instructions .ROUTE .COMPLEX Qty: 90 3RF Dose Instruction: TAKE 1 TABLET BY MOUTH DAILY Rx Instructions: TAKE 1 TABLET BY MOUTH DAILY rosuvastatin 20 mg tablet 20 mg PO DAILY Qty: 90 3RF omeprazole 20 mg capsule,delayed release(DR/EC) See Rx Instructions .ROUTE BID Qty: 180 3RF Dose Instruction: TAKE 1 CAPSULE BY MOUTH TWICE DAILY Rx Instructions: TAKE 1 CAPSULE BY MOUTH TWICE DAILY twice a day; nitrofurantoin macrocrystal 100 mg capsule 100 mg PO Q12H Qty: 10 1RF Rx Instructions: must administer with a meal/food vitamin B complex Capsule 1 cap PO DAILY cholecalciferol (vitamin D3) 50 mcg (2,000 unit) tablet 4,000 unit PO DAILY dietary supplement Capsule 1 cap PO DAILY Patient Comments: SBIProtect- Dietary Supplement Ortho Digestzyme Super [place] Follow-up/Referrals: Gerry Johnston DO [Primary Care Provider] -
[2024-04-18] MEDS: IBUPROFEN 600 MG TABLET PO (12:59)
[2024-04-18] MEDS: HYDROcodone/acetaminophen (*CRX) 5-325 MG TABLET 1 TAB PO (13:00)
[2024-04-18 13:56] VITALS: BP 145/54; PULSE 60; RESP 15; O2SAT 97
== END 2024-04-18 14:03 | disposition home or self-care (01) ==
LOC: ANHED 13:19
PROVIDERS: Emergency Provider Emergency Medicine; PCP Internal Medicine
DX: G44.309 Post-traumatic headache, unspecified, not intractable (principal); F07.81 Postconcussional syndrome; M25.562 Pain in left knee; I25.10 Atherosclerotic heart disease of native coronary artery without angina pectoris; E03.9 Hypothyroidism, unspecified; E78.5 Hyperlipidemia, unspecified
CPT/HCPCS: 70450; 72125; 73562; 99284; A9270

== ENCOUNTER 2024-04-26 14:49 | Outpatient (CLI) | payer MEDICARE, SELFPAY ==
[2024-04-26 19:53] LABS: Basophils Absolute Auto 0.1 K/mm3 (0.0-0.1); Basophils Percent Auto 0.7 % (0.2-1.2); Eosinophils Absolute Auto 0.1 K/mm3 (0-0.3); Eosinophils Percent Auto 1.3 % (0-4.4); Hematocrit 40.4 % (37.0-47.0); Hemoglobin 12.9 g/dL (12.0-15.0); Immature Granulocyte Absolute 0.03 K/mm3 (0.00-0.031); Immature Granulocyte Percent A 0.4 % (0-0.5); Lymphocytes Percent Auto 26.3 % (18.3-44.2); Mean Corpuscular HGB Conc 31.9 g/dl (32-36); Mean Corpuscular Hemoglobin 29.7 pg (26-34); Mean Corpuscular Volume 92.9 fl (80-100); Mean Platelet Volume 11.2 fl (7.4-10.4); Monocytes Absolute Auto 0.6 K/mm3 (0.1-0.6); Monocytes Percent Auto 7.9 % (2.6-8.5); Neutrophils Absolute Auto 4.8 K/mm3 (1.3-6.7); Neutrophils Percent Auto 63.4 % (45.5-73.1); Platelet Count Result 226 k/mm3 (150-375); Red Blood Count 4.35 M/mm3 (4.2-5.4); Red Cell Distribution Width 13.8 % (11.5-14.5); White Blood Count 7.6 K/mm3 (4.5-10.0)
[2024-04-26 19:58] LABS: Anion Gap 7 mmol/L (4-12); Blood Urea Nitrogen 27 mg/dL (7-17); Calcium 9.3 mg/dL (8.4-10.2); Carbon Dioxide 30 mmol/L (22-30); Chloride 105 mmol/L (98-107); Estimated Glomerular Filt Rate 56; Glucose 96 mg/dL (65-110); Potassium 4.2 mmol/L (3.4-5.0); Sodium 142 mmol/L (137-145)
[2024-04-26 20:06] LABS: Add Urine Microscopic? YES; Appearance Urine Turbid (Clear); Bacteria Urine None Seen /hpf; Bilirubin Urine Negative (Negative); Blood Urine Negative (Negative); Color Urine Yellow (Yellow); Glucose Urine UA Negative (Negative); Ketones Urine Trace mg/dL (Negative); Leukocyte Esterase Ur Negative LEU/UL (Negative); Mucus Urine Present /lpf; Need Manual Microscopic Reviewed; Nitrate Urine Negative (Negative); Protein Urine Negative (Negative); RBC Urine 0-2 /hpf (0-2); Specific Grav Ur 1.032 (1.001-1.035); Squamous Epithelial Cell Urine Few /hpf (Few)
[2024-04-26 20:29] LABS: Thyroid Stimulating Hormone 0.288 uIU/mL (0.465-4.680)
[2024-04-26 21:04] LABS: Vitamin B12 > 1000.0 pg/mL (239-931)
--- OUTSIDE RECORDS SUMMARY | 2024-04-28 19:15 | XMS_ITS | Encounter Summary ---
Author Organization [facility] Healthcare Address [address] [place] [address] Care Team Providers Care Sheeter Operator Name Role Phone Gerry Johnston DO Primary Care Provider +- [phone] Salvador Chirinos MD Unavailable [phone] Reason for Visit * Reason Onset Date Comments Scheduling Appointments 01/22/2021 confirmi ng mamm appt Encounter Details Date Type Department Care Team (Late st Contact Info) Description 01/22/2021 Telephone [facility] [address] [place] [address] Alexus Burr RT Scheduling Appointments (confirming mamm appt) Social History Tobacco Use Types Packs/Day Years Used Date Smoking Tobacco: Never Smokeless Tobacco: Never Alcohol Use Standard Drinks/Week Comments Yes 0 (1 standard drink = 0.6 oz pur e alcohol) AUDIT-C Answer Date Recorded Frequency of Alcohol Consumption Not on file 10/11/2018 Average Number of Drinks 3 or 4 019 Frequency of Binge Drinking Not on file 11/2018 Comments No Sex and Gender Information Value Date Recorded Sex Assigned at Not on file 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
--- OUTSIDE RECORDS SUMMARY | 2024-04-28 19:15 | XMS_ITS | Referral Summary ---
Author Organization [facility] Address [address] [place] [address] Care Team Providers Care Data Solutions Architect Name Role Phone Gerry Johnston DO Primary Care Provider [phone]- [phone] Salvador Chirinos MD Unavailable Encounters Date Type Department Care Team Description 04/01/2024 2:41 PM HOCKEY PLAYER - 04/01/2024 11:59 PM HOCKEY PLAYER Hospital Encounter [facility] [address] [place] [id number] Screening mammogram, encounter for Discharge Disposition: Discharge to home or self care 02/08/2024 8:00 AM HOCKEY PLAYER Ancillary Procedure [facility] Vascular Lab at the [facility] Advanced Medicine [address] [place] [address] 8th [place] [address] [place] [address] Carotid occlusion, left 02/08/2024 9:00 AM HOCKEY PLAYER Office Visit [facility] Surgery [address] [place] [address] 8th [place] [address] [place] [address] Alexsandra Garzon NP Carotid occlusion, left from Last 3 Months Allergies Active Allergy Reactions Criticality Noted Date Comments Solifenacin Headache,Shortness o f breath High 05/27/2021 Sulfa (Sulfonamide Antibiotics) Rash,Itching Medium 02/23/2012 Medications aspirin 325 mg tablet daily. 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 Never 12/13/2021 Average Number of Drinks Not on file 022 Frequency of Binge Drinking Not on file 12/2021 Comments No Sex and Gender Information Value Date Recorded Sex Assigned at Not on file Legal Sex Female 9:55 AM HOCKEY PLAYER Gender Identity Not on file Sexual Orientation Not on file Last Filed Vital Signs Vital Sign Reading Time Taken Comments Blood Pressure 128/65 02/08/2024 8:33 AM HOCKEY PLAYER Pulse 61 02/08/2024 8:33 AM HOCKEY PLAYER Temperature 36.7 ??C (98 ??F) 12/13/2021 12:29 PM CDT Respiratory Rate 18 12/13/2021 2:13 PM CDT Oxygen Saturation 100% 02/08/2024 8:33 AM HOCKEY PLAYER Inhaled Oxygen Concentration - - Weight 68 kg (150 lb) 02/08/2024 8:33 AM HOCKEY PLAYER Height 157.5 cm (5' 2 ) 04/01/2024 3:01 PM HOCKEY PLAYER Body Mass Index 26.57 02/08/2024 8:33 AM HOCKEY PLAYER Plan of Treatment Not on file Procedures Procedure Name Priority Date/Time Associated Diagnosis Comments SCREENING MAMMOGRAM BILATERAL [place] Schedule Routine, Read Routine (OP Routine) 04/01/2024 3:08 PM HOCKEY PLAYER Screening mammogram, encounter for US CAROTIDS DUPLEX BILATERAL Schedule Routine, Read Routine (OP Routine) 02/08/2024 8:35 AM HOCKEY PLAYER Carotid occlusion, left from Last 3 Months Results * Screening Mammogram Bilateral [place] (04/01/2024 3:08 PM HOCKEY PLAYER) Anatomical Region Laterality Modality Breast Bilateral Mammography 04/01/2024 3:31 PM HOCKEY PLAYER Impressions 04/01/2024 3:31 PM HOCKEY PLAYER There is no mammographic evidence of malignancy. A 1 year screening mammogram is recommended. BI-RADS: 1 - Negative. The patient has been or will be contacted. The patient will be entered into a reminder system with a target due date of 1 year for her next mammogram. Electronically signed by: Joseph Mckoy M.D. Narrative 04/01/2024 3:31 PM HOCKEY PLAYER EXAMINATION: SCREENING MAMMOGRAM BILATERAL [place] ORDERING HEALTHCARE PROVIDER: SELF SCREENING MAMMOGRAM HISTORY: Routine screening mammography. COMPARISON: ??02/23/2023,02/21/2022, 01/23/2021, 01/21/2020, 01/04/2019, 12/09/2017 TECHNIQUE: CC and MLO views of the bilateral breasts were obtained with digital technique using breast tomosynthesis with C view. Computer aided detection was utilized. FINDINGS: DENSITY: The breasts are heterogeneously dense, which may obscure small masses. BREASTS: There are no suspicious masses, suspicious calcifications, or other suspicious findings in either breast. There has been no suspicious interval change. us Self Screening Mammogram IMG MAMMO PROCEDURES Fi nal Result * US Carotids Duplex Bilateral (02/08/2024 8:35 AM HOCKEY PLAYER) Anatomical Region Laterality Modality Vascular Bilateral Ultrasound 02/08/2024 8:13 AM HOCKEY PLAYER Narrative 02/08/2024 7:34 PM HOCKEY PLAYER [facility] - Department of Vascular Surgery, Vascular Laboratory [address] [place] [address] Carotid Duplex Ultrasound Report Patient Name: AMINAH BUSTAMANTE : 1950 (74y 1m) Study Date: 02/08/2024 8:13:19 AM Gender: F Tech: Location: [facility] Provider: ALEXSANDRA GARZON ?Quality: Adequate Order Provider: ALEXSANDRA GARZON PROCEDURES: Carotid Report: Carotid duplex examination of the extracranial arteries was performed using 2D, color and spectral Doppler. INDICATIONS: carotid occlusion Dx: Carotid occlusion, left [I65.22 (ICD-10-CM)] I65.22 Occlusion and stenosis of left carotid artery. Measurements: Right ?Left Measurement ?Value ?Units ? Measurement ?Value ?Units RT Prox CCA PSV ?90 ? cm/sec ?LT Prox CCA PSV ?78 ? cm/sec RT Prox CCA EDV ?26 ? cm/sec ?LT Prox CCA EDV ?0 ?cm/sec RT Distal CCA PSV ?83 ? cm/sec ?LT Distal CCA PSV ?33 ? cm/sec RT Distal CCA EDV ?24 ? cm/sec ?LT Distal CCA EDV ?0 ?cm/sec RT Prox ICA PSV ?76 ? cm/sec ?LT Prox ICA PSV ?0 ?cm/sec RT Prox ICA EDV ?26 ? cm/sec ?LT Prox ICA EDV ?0 ?cm/sec RT Mid ICA PSV ? 110 ?cm/sec ?LT Mid ICA PSV ? 0 ?cm/sec RT Mid ICA EDV ? 32 ? cm/sec ?LT Mid ICA EDV ? 0 ?cm/sec RT Distal ICA PSV ?138 ?cm/sec ?LT Distal ICA PSV ?0 ?cm/sec RT Distal ICA EDV ?48 ? cm/sec ?LT Distal ICA EDV ?0 ?cm/sec RT ECA Prx PSV ? 75 ? cm/sec ?LT ECA Prx PSV ? 72 ? cm/sec RT ICA/CCA ? 0.90 ? ratio ? LT ICA/CCA ? 0.00 ? ratio RT VERT PSV ?53 ? cm/sec ?LT VERT PSV ?69 ? cm/sec - FINDINGS: Performing Mail Distribution Scheme Examiner: Ashlie Tinoco RVT. Rt Common Carotid Artery: The plaque in the right CCA appears to be heterogeneous. Atherosclerotic changes of the right common carotid artery with no hemodynamically significant Doppler findings. Rt Internal Carotid Artery: The plaque in the right internal carotid artery appears to be heterogeneous. Atherosclerotic changes of the right internal carotid artery without hemodynamically significant Doppler findings. <50% stenosis. Rt External Carotid Artery: Patent right external carotid artery with evidence of atherosclerotic disease present. Rt Vertebral Artery: The right vertebral artery is patent with antegrade flow. Lt Common Carotid Artery: Duplex imaging of the left common carotid artery is within normal limits without evidence of atherosclerotic disease. Lt Internal Carotid Artery: The plaque in the left internal carotid artery appears to be heterogeneous. No evidence of color filling and absent Doppler signals within the left internal carotid artery. Significant atherosclerotic disease present on 2D imaging. Lt External Carotid Artery: Patent left external carotid artery with evidence of atherosclerotic disease present. Lt Vertebral Artery: The left vertebral artery is patent with antegrade flow. CONCLUSIONS: 1. The right internal carotid artery disease is consistent with a less than 50% stenosis. 2. The left internal carotid artery disease is consistent with a severe obstruction or complete occlusion (known). 3. Normal, antegrade flow is noted in bilateral vertebral arteries. 4. Patent bilateral external carotid arteries with evidence of atherosclerotic plaque. HISTORY: occluded left internal carotid artery. PREVIOUS STUDIES: Previous carotid ultrasound on 08/03/23. DISCLAIMER: The study images and the final report will be retained in the patient chart by the Vascular Laboratory for the legally required time period. This chart constitutes the legal record of any testing performed. ATTESTATION: I have reviewed and interpreted the pertinent images and measurements of this study. I attest to the conclusions in the final report that is provided above. Electronically Signed By: Tee Cline MD FACS 2024-02-08 19:33:39 HOCKEY PLAYER Procedure Note Tee Cline MD - 02/08/2024 [facility] - Department of Vascular Surgery,Vascular Laboratory [address] [place] [address] Carotid Duplex Ultrasound Report Patient Name: AMINAH BUSTAMANTE : 1950 (74y 1m) Study Date: 02/08/2024 8:13:19 AM Gender: F Tech: [facility] Ref Provider: ALEXSANDRA GARZON Quality: Adequate Order Provider: ALEXSANDRA GARZON PROCEDURES: Carotid Report: Carotid duplex examination of the extracranial arterieswas performed using 2D, color and spectral Doppler. INDICATIONS: carotid occlusion Dx: Carotid occlusion, left [I65.22 (ICD-10-CM)] I65.22 Occlusion and stenosis of left carotid artery. Measurements: Right Left Measurement Value Units Measurement ValueUnits RT Prox CCA PSV 90 cm/sec LT Prox CCA PSV 78cm/sec RT Prox CCA EDV 26 cm/sec LT Prox CCA EDV 0cm/sec RT Distal CCA PSV 83 cm/sec LT Distal CCA PSV 33cm/sec RT Distal CCA EDV 24 cm/sec LT Distal CCA EDV 0cm/sec RT Prox ICA PSV 76 cm/sec LT Prox ICA PSV 0cm/sec RT Prox ICA EDV 26 cm/sec LT Prox ICA EDV 0cm/sec RT Mid ICA PSV 110 cm/sec LT Mid ICA PSV 0cm/sec RT Mid ICA EDV 32 cm/sec LT Mid ICA EDV 0cm/sec RT Distal ICA PSV 138 cm/sec LT Distal ICA PSV 0cm/sec RT Distal ICA EDV 48 cm/sec LT Distal ICA EDV 0cm/sec RT ECA Prx PSV 75 cm/sec LT ECA Prx PSV 72cm/sec RT ICA/CCA 0.90 ratio LT ICA/CCA 0.00ratio RT VERT PSV 53 cm/sec LT VERT PSV 69cm/sec - FINDINGS: Performing Mail Distribution Scheme Examiner: Ashlie Tinoco RVT. Rt Common Carotid Artery: The plaque in the right CCA appears to beheterogeneous. Atherosclerotic changes of the right common carotid artery with nohemodynamically significant Doppler findings. Rt Internal Carotid Artery: The plaque in the right internal carotidartery appears to be heterogeneous. Atherosclerotic changes of the right internal carotidartery without hemodynamically significant Doppler findings. <50% stenosis. Rt External Carotid Artery: Patent right external carotid artery withevidence of atherosclerotic disease present. Rt Vertebral Artery: The right vertebral artery is patent with antegradeflow. Lt Common Carotid Artery: Duplex imaging of the left common carotid arteryis within normal limits without evidence of atherosclerotic disease. Lt Internal Carotid Artery: The plaque in the left internal carotid arteryappears to be heterogeneous. No evidence of color filling and absent Doppler signalswithin the left internal carotid artery. Significant atherosclerotic disease present on 2Dimaging. Lt External Carotid Artery: Patent left external carotid artery withevidence of atherosclerotic disease present. Lt Vertebral Artery: The left vertebral artery is patent with antegradeflow. CONCLUSIONS: 1. The right internal carotid artery disease is consistent with a lessthan 50% stenosis. 2. The left internal carotid artery disease is consistent with a severeobstruction or complete occlusion (known). 3. Normal, antegrade flow is noted in bilateral vertebral arteries. 4. Patent bilateral external carotid arteries with evidence ofatherosclerotic plaque. HISTORY: occluded left internal carotid artery. PREVIOUS STUDIES: Previous carotid ultrasound on 08/03/23. DISCLAIMER: The study images and the final report will be retained in the patientchart by the Vascular Laboratory for the legally required time period. This chartconstitutes the legal record of any testing performed. ATTESTATION: I have reviewed and interpreted the pertinent images and measurements ofthis study. I attest to the conclusions in the final report that is provided above. Electronically Signed By: Tee Cline MD [facility] 2024-02-08 19:33:39 HOCKEY PLAYER us Alexsandra Garzon NP IM US PROCEDURES Final Result from Last [address] [place] [address] [employer] MEDICARE MEDICARE SOLUTIONS FORMERLY [facility] MEDICARE [facility] MEDIC[facility] Address: [facility] [address] [place] [address] Advance Directives For more information, please contact: [phone] * Full Code (Latest Code Status on File) Date Activated Date Inactivated Comments 12/13/2021 12:29 PM 12/13/2021 7:10 PM Care Teams Data Solutions Architect Relationship Specialty Start Date End Date Gerry Johnston DO PCP - General 06/10/16 Salvador Chirinos MD [address] [place] [address] [address] [address] Consulting Physician Obstetrics and Gynecology 02/19/23
--- OUTSIDE RECORDS SUMMARY | 2024-04-28 19:15 | XMS_ITS | Encounter Summary ---
Author Organization [facility] Address [address] [place] [address] Care Team Providers Care Genetics Physician Name Role Phone Gerry Johnston DO Primary Care Provider + [phone] Gerry Johnston DO Primary Care Provider + [phone] Salvador Chirinos MD Unavailable [phone] Encounter Details Date Type Department Care Team (Late st Contact Info) Description 04/09/2016 Orders Only [facility] Provider, MD Barry [address] [place] [address] Social History Tobacco Use Types Packs/Day Years Used Date Smoking Tobacco: Never Assessed Comments Unknown Sex and Gender Information Value Date Recorded Sex Assigned at Not on file 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 Historical Provider [facility] DAVI COTO Final Result documented in this encounter Visit Diagnoses Not on filedocumented in this encounter Care Teams Genetics Physician Relationship Specialty Start Date End Date Gerry Johnston DO PCP - General 06/10/16 Gerry Johnston DO PCP - General 12/12/13 06/09/16 Salvador Chirinos MD [address] [facility] [place] [address] Consulting Physician Obstetrics and Gynecology 02/19/23 documented as of this encounter
--- OUTSIDE RECORDS SUMMARY | 2024-04-28 19:15 | XMS_ITS | Referral Summary ---
Author Organization [facility] Address [address] [place] [address] Care Team Providers Care Fisher Lampara Net Name Role Phone Vickie Gerry Mariann DO Primary Care Provider [phone] Source Comments [facility],non-[facility] health Affiliates and Associated Physician Practices is amultiple site organization consisting of ambulatory clinics and hospital sitesin [place], [place], [place] and [place]. This disclosure is being madepursuant to the Care Everywhere program and may not contain all information available regarding this patient. Last updated 17.[facility] Allergies Active Allergy Reactions Criticality Noted Date Comments Solifenacin Headache,Shortness o f Breath High 05/27/2021 Sulfa Drugs Itching 09/21/2017 And vaginal swelling Medications * Be aware that medications may not be up to date on this document. Alwaysverify current medications with the patient. Medication Sig Dispensed Refills Start Date End Date Status aspirin EC (ECOTRIN) 325 MG tablet Take 2 (two) tablets by mouth Active vitamin D3 (CHOLECALCIFEROL) 1000 UNITS tablet Take 1 (one) tablet by mouth Active rosuvastatin (Crestor) 20 MG tablet Take 1 (one) tablet by mouth 08/29/2014 Active Cyanocobalamin (B-12) 500 MCG Take 1 (one) tablet by mouth Active levothyroxine (SYNTHROID) 75 MCG tablet 08/03/2017 Active fluocinonide (LIDEX) 0.05 % solution 07/17/2020 Active liothyronine (CYTOMEL) 5 MCG tablet Take 1 (one) tablet by mouth once daily Active omeprazole (PriLOSEC) 20 MG capsule 05/14/2022 Active Active Problems Problem Noted Date Diagnosed Date Bruit of left carotid artery 07/14/2022 Nocturia 12/22/2017 Urge incontinence 12/22/2017 Recurrent UTI 10/27/2017 Achalasia of esophagus 04/10/2016 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 (FLUAD TRIVALENT; 65Y+) (AIIV3) 01/03/2019 Pneumococcal Pcv13 Conj 08/25/2018 Zoster Hzv Vacc Recombinant Inj Im 11/12/2018, Social History Tobacco Use Types Packs/Day Years Used Date Smoking Tobacco: Never Smokeless Tobacco: Never Alcohol Use Standard Drinks/Week Comments Yes 2 (1 standard drink = 0.6 oz pur e alcohol) PHQ-2 Answer Date Recorded Patient Health Questionnaire-2 Score 0 08/18/2023 Sex and Gender Information Value Date Recorded Sex Assigned at Not on file Gender Identity Female 07/04/2021 8:04 AM CDT Sexual Orientation Choose not to disclose 2021 8:04 AM CDT Last Filed Vital Signs Vital Sign Reading Time Taken Comments Blood Pressure 122/72 08/21/2023 1:40 PM CDT Pulse 84 11/20/2015 1:12 PM CDT Temperature 36.4 ??C (97.6 ??F) 08/21/2023 1:40 PM CD T Respiratory Rate 12 11/20/2015 1:09 PM CDT Oxygen Saturation 98% 11/20/2015 1:12 PM CDT Inhaled Oxygen Concentration - - Weight 67.6 kg (149 lb) 08/21/2023 1:40 PM CDT Height 160 cm (5' 3 ) 08/21/2023 1:40 PM CDT Body Mass Index 26.39 08/21/2023 1:40 PM CDT Plan of Treatment Upcoming Encounters Date Type Department Care Team (Late st Contact Info) Description 08/30/2024 10:45 AM CDT Office Visit [facility] - RN SECURITY [address] [place] [address] Kimani Rodriguez Che, MD [address] [place] [address] Care Teams Fisher Lampara Net Relationship Specialty Start Date End Date Gerry Johnston DO PCP - General 08/28/17
--- OUTSIDE RECORDS SUMMARY | 2024-04-28 19:15 | XMS_ITS | Patient Health Summary ---
Author Organization [facility] Address [address] [facility] [place] [address] Care Team Providers Care Hose Turner Name Role Phone Vickie Gerry Mariann DO Primary Care Provider [phone] Note from [facility],non-owned Affiliates and Associated Physician Practices is amultiple site organization consisting of ambulatory clinics and hospital sitesin [place], [place], [place] and [place]. This disclosure is being madepursuant to the Care Everywhere program and may not contain all information available regarding this patient. Last updated 17.[facility] Allergies * Solifenacin(Headache,Shortness of Breath) -High Criticality * Sulfa Drugs(Itching) Medications * Be aware that medications may not be up to date on this document. Alwaysverify current medications with the patient. * aspirin EC (ECOTRIN) 325 MG tablet Take 2 (two) tablets by mouth * vitamin D3 (CHOLECALCIFEROL) 1000 UNITS tablet Take 1 (one) tablet by mouth * rosuvastatin (Crestor) 20 MG tablet(Started 08/29/2014) Take 1 (one) tablet by mouth * Cyanocobalamin (B-12) 500 MCG Take 1 (one) tablet by mouth * levothyroxine (SYNTHROID) 75 MCG tablet(Started 08/03/2017) * fluocinonide (LIDEX) 0.05 % solution(Started 07/17/2020) * liothyronine (CYTOMEL) 5 MCG tablet Take 1 (one) tablet by mouth once daily * omeprazole (PriLOSEC) 20 MG capsule(Started 05/14/2022) Active Problems Problem Noted Date Diagnosed Date Bruit of left carotid artery 07/14/2022 Nocturia 12/22/2017 Urge incontinence 12/22/2017 Recurrent UTI 10/27/2017 Achalasia of esophagus 04/10/2016 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 (FLUAD TRIVALENT; 65Y+) (AIIV3)(Given 01/03/2019) * Pneumococcal Pcv13 Conj(Given 08/25/2018) * Zoster Hzv Vacc Recombinant Inj Im(Given 11/12/2018, 09/13/2018) Social History Tobacco Use Types Packs/Day Years [...] Mass Index 26.39 08/21/2023 1:40 PM CDT Procedures * CULTURE URINE COMPREHENSIVE(Performed 07/09/2021) Performed for Dysuria * WA INSERT NON-INDWELLING BLADDER(Performed 07/09/2021) Performed for Dysuria * URINALYSIS AUTO - POINT OF CARE (AMB) [facility](Performed 07/09/2021) Performed for Dysuria * CULTURE URINE(Performed 12/11/2020) Performed for Dysuria * CULTURE URINE(Performed 09/08/2019) Performed for Acute cystitis without hematuria * WA CYSTOURETHROSCOPY(Performed 12/22/2017) Performed for Recurrent UTI, Urge incontinence, Nocturia * CULTURE URINE(Performed 11/18/2017) Performed for Acute cystitis without hematuria * WA INSERT NON-INDWELLING BLADDER(Performed 10/27/2017) Performed for Recurrent UTI * URINALYSIS - POINT OF CARE(Performed 10/27/2017) Performed for Recurrent UTI * CULTURE URINE COMPREHENSIVE(Performed 10/27/2017) Performed for Recurrent UTI * CULTURE URINE(Performed 09/22/2017) Performed for Acute cystitis without hematuria * URINALYSIS - POINT OF CARE (AMB) [facility](Performed 10/21/2016) * CULTURE URINE COMPREHENSIVE(Performed 10/21/2016) * CORTISOL SALIVA(Performed 11/22/2015) * THYROID PEROXIDASE ANTIBODY(Performed 11/22/2015) * T4 FREE DIRECT DIALYSIS(Performed 11/22/2015) * TSH(Performed 11/22/2015) Results * CULTURE URINE COMPREHENSIVE (07/09/2021 2:44 PM CDT) Only the most recent of3 resultswithin the time period is included. Culture [facility] Comment: ??CULTURE, URINE, SPECIAL ?Micro Number: ?[id number] ??Test Status: ? Final ??Specimen Source: ?? Urine ??Specimen Quality: ??Adequate ??Result: ?No Growth Test Performed at: [facility] [address] ??[id number] CHANDANA CHARLTON MD Microbiology URINE SPECIMEN COLLECTION, CATHETERIZED / Unknown 07/09/2021 2:44 PM CDT 07/10/2021 1:21 AM CDT Kimani Rodriguez MD LAB - MICROBIOLOGY O RDERABLES [address] [address] * WA INSERT NON-INDWELLING BLADDER (07/09/2021 12:15 PM CDT) Narrative Kimani Rodriguez Che, MD - 07/09/2021 12:15 PM CDT Kimani Rodriguez Che, MD ? 07/09/2021 12:15 PM The patient was prepped with betadine (or with hibiclens or other antiseptic agent if allergic to topical iodine). She understood the rationale for the procedure and agreed to the procedure. A 14F short female catheter was then advanced into the urethra and urine was collected for bedside urinalysis as well as a urine culture and/or formal urinalysis as needed. The post void residual is as noted in the progress note, as are results of the dipstick taken. The patient tolerated the procedure well. Kimani Rodriguez MD PROCEDURE/MINOR SURG ICAL ORDERABLES * URINALYSIS AUTO - POINT OF CARE (AMB) [facility] (07/09/2021) Glucose UA neg Bilirubin UA POCT neg Ketones UA POCT neg Specific Mead UA 1.010 Blood Urine POCT neg pH UA 6.0 Protein UA neg Urobilinogen UA 0.2 Nitrite UA neg WBC UA neg Urine URINE / Unknown 07/09/2021 Kimani Rodriguez MD LAB - POINT OF CARE ORDERABLES * CULTURE URINE (12/11/2020 2:48 PM CDT) Only the most recent of4 resultswithin the time period is included. Urine Culture Routine Final report [facility] INSURANCE BILL Result 1 [facility] INSURANCE BILL Comment: Mixed urogenital lisset 10,000-25,000 colony forming units per mL Urine URINE SPECIMEN OBTAINED BY CLEAN CATCH PROCEDURE / Unknown 12/11/2020 2:48 PM CDT 12/11/2020 Narrative Resulting Agency Comment Lab Testing performed at: [address] ??[facility] [id number] Kimani Rodriguez MD LAB - MICROBIOLOGY O RDERABLES [facility] INSURANCE BILL [address] [place] [address] * WA CYSTOURETHROSCOPY (12/22/2017 1:32 PM CDT) Narrative Kimani Rodriguez Che, MD - 12/22/2017 1:32 PM CDT Kimani Rodriguez Che, MD ? 12/22/2017 ??1:32 PM Cystoscopy Procedure Note Indications: frequency, urgency and recurrent UTI Procedure Details: The patient was counseled about the procedure including risks, benefits, alternatives, and given a detailed description of what to expect. Cystoscopy was performed with a rigid 70 degree cystoscopy with a 17F sheath under aseptic conditions. The urethra was cleaned with Betadine solution (unless she was allergic to topical iodine when hibiclens was used). A careful examination of all quadrants was performed in a systematic fashion. The patient tolerated the procedure well and was allowed to watch the examination on a video monitor. Urethral visualization was also done. Findings: She was found to have trabeculations and a deep right sided diverticulum. Efflux was noted from the both ureteral orifice. Squamous metaplasia was noted. No foreign body. Urethra - no foreign body. Condition: ??Good Complications: ??None Kimani Rodriguez MD PROCEDURE/MINOR SURG ICAL ORDERABLES * WA INSERT NON-INDWELLING BLADDER (10/27/2017 10:32 AM CDT) Narrative Kimani Rodriguez Che, MD - 10/27/2017 10:32 AM CDT Kimani Rodriguez Che, MD ? 10/27/2017 10:32 AM Please look at progress note for details for the visit. Kimani Rodriguez MD PROCEDURE/MINOR SURG ICAL ORDERABLES * URINALYSIS - POINT OF CARE (10/27/2017) Clarity UA POCT clear Color UA POCT yellow Leukocyte UA neg Negative Nitrite UA POCT neg Negative Urobilinogen UA 0.1 0.1 - 1.0 Protein UA POCT neg Negative pH UA 7.0 5.0 - 8.0 pH units Blood UA neg Negative Specific Mead UA POCT 1.005 1.002 - 1.030 Ketone UA neg Negative Bilirubin UA POCT neg Negative Glucose UA neg Negative Urine URINE / Unknown 10/27/2017 Kimani Rodriguez MD LAB - POINT OF CARE ORDERABLES * URINALYSIS - POINT OF CARE (AMB) [facility] (10/21/2016) Glucose UA neg [facility] Bilirubin UA POCT neg [facility] Ketones UA POCT neg [facility] Specific Mead UA 1.010 [facility] Blood Urine POCT neg [facility] pH UA 5.0 [facility] Protein UA neg [facility] Urobilinogen UA neg [facility] Nitrite UA neg [facility] WBC UA neg [facility] Urine specimen (specimen) 10/21/2016 Kimani Rodriguez MD LAB - POINT OF CARE ORDERABLES Performing Organization Address [facility]/ZIP Co de Phone Number [facility] * CORTISOL SALIVA (11/22/2015 3:23 PM CDT) Salivary Cortisol MS 0.046 ug/dL [facility] ([facility]) Comment: Reference Range: Children and Adults: 8:00a.m.: ?? 0.025 - 0.600 Noon: ?<0.010 - 0.330 4:00p.m.: ?? 0.010 - 0.200 Midnight: ??<0.010 - 0.090 11/22/2015 3:23 PM CDT 11/22/2015 6:16 PM CDT Narrative [facility] ([facility]) - 11/30/2015 7:14 AM CDT Performed at: ??01 - [facility] [address] [place] [address] ??[id number] Weaving Supervisor: Jad Nash MD, Phone: ??[phone] Kurt Salazar MD LAB - BODY FLUID OR DERABLES Performing Organization Address City/[facility]/ZIP Co de Phone Number [facility] * T4 FREE DIRECT DIALYSIS (11/22/2015 3:03 PM CDT) T4 Free Direct Dialysis 1.5 ng/dL [facility] ([facility] Comment: Reference Range: Pubertal Children and Adults: 0.8 - 1.7 Blood specimen (specimen) BLOOD SPECIMEN / Unknown 11/22/2015 3:03 PM CDT 11/22/2015 6:14 PM CDT Narrative [facility] ([facility]) - 11/28/2015 7:14 AM CDT Performed at: ??01 - [facility] [address] [place] [address] ??[id number] Weaving Supervisor: Jad Nash MD, Phone: ??[phone] Kurt Salazar MD LAB - CHEMISTRY ORD ERABLES Performing Organization Address City/[facility]/ZIP Co de Phone Number [facility] ([facility]) * THYROID PEROXIDASE ANTIBODY (11/22/2015 3:03 PM CDT) Thyroid Peroxidase TPO Antibody 30 0 - 34 IU/mL [facility] ([facility]) Blood specimen (specimen) BLOOD SPECIMEN / Unknown 11/22/2015 3:03 PM CDT 11/22/2015 6:14 PM CDT Narrative [facility] ([facility]) - 11/28/2015 7:14 AM CDT Performed at: ??02 - [facility] [address] ??[id number] Weaving Supervisor: Jimmy Zimmerman PhD, Phone: ??[phone] Kurt Salazar MD LAB - CHEMISTRY ORD ERABLES Performing Organization Address City/[facility]/ZIP Co de Phone Number [facility] ([facility]) * TSH (11/22/2015 3:03 PM CDT) TSH 0.615 0.450 - 4.500 uIU/mL [facility] ([facility]) Blood specimen (specimen) BLOOD SPECIMEN / Unknown 11/22/2015 3:03 PM CDT 11/22/2015 6:14 PM CDT Narrative [facility] ([facility]) - 11/28/2015 7:14 AM CDT Performed at: ??02 - [facility] [address], [place], [place] ??[id number] Weaving Supervisor: Jimmy Zimmerman PhD, Phone: ??[phone] Kurt Salazar MD LAB - CHEMISTRY ORD ERABLES [facility] ([facility]) Care Teams Hose Turner Relationship Specialty Start Date End Date Gerry Johnston DO PCP - General 08/28/17
--- OUTSIDE RECORDS SUMMARY | 2024-04-28 19:15 | XMS_ITS | Clinical Summary ---
Author Organization [facility] Address [address] [place] [address] Care Team Providers Care Night Court Magistrate Name Role Phone Gerry Johnston DO Primary Care Provider [phone] Salvador Chirinos MD Unavailable Allergies Active Allergy Reactions Criticality Noted Date Comments Solifenacin Headache,Shortness o f breath High 05/27/2021 Sulfa (Sulfonamide Antibiotics) Rash,Itching Medium 02/23/2012 Medications aspirin 325 mg tablet daily. Active rosuvastatin (CRESTOR) 20 mg tablet Take 1 tablet (20 mg total) by mouth daily 2 Active levothyroxine (SYNTHROID, LEVOTHROID) 75 mcg tablet Take 1 tablet (75 mcg total) by mouth teletype or varitype keyboard operator before breakfast 6 Active cyanocobalamin (Vitamin B-12) [...] Carotid occlusion, left 02/23/2015 Abdominal pain 02/23/2012 Encounters Date Type Department Care Team Description 04/01/2024 2:41 PM MATHEMATICAL ENGINEER - 04/01/2024 11:59 PM MATHEMATICAL ENGINEER Hospital Encounter [facility] [address] [place] [address] Screening mammogram, encounter for Discharge Disposition: Discharge to home or self care 02/08/2024 9:00 AM MATHEMATICAL ENGINEER Office Visit [facility] [address] [place] [address] [place] [address] Sharee Garzon NP Carotid occlusion, left 02/08/2024 8:00 AM MATHEMATICAL ENGINEER Ancillary Procedure [facility] Vascular Lab at the [facility] [address] [place] [address] [place] [address] Carotid occlusion, left from Last 3 Months Immunizations Name Administration Dates Next Due ZOSTER Recombinant 11/12/2018,09/13/2018 Surgical History Surgery Date Site/Laterality Comments HYSTERECTOMY OOPHORECTOMY CHOLECYSTECTOMY HIP SURGERY Bilateral CAROTID ENARTERECTOMYY Left THYROIDECTOMY BLADDER SUSPENSION LAPAROSCOPIC HELLER MYOTOMY BREAST CYST EXCISION 04/06/1964 - 04/05/1965 Right benign cyst excised Medical History Medical History Date Comments Breast cyst rt side at age [age] Dysphagia GERD (gastroesophageal reflux disease) Hypothyroidism Coronary artery disease PONV (postoperative nausea and vomiting) Arthritis Family History Medical History Relation Name Comments Alzheimer's disease Father Family h istory of Alzheimer's disease - (Added by TW Conv) Hypertension Father Family history of hypertension - (Added by TW Conv) Parkinsonism Father Family history of Parkinson's disease - (Added by TW Conv) Diabetes Mother Family history of diabetes mellitus - (Added by TW Conv) Stroke Mother Family history of cerebrovascular accident - (Added by TW Conv) Breast cancer Neg Hx Ovarian cancer Neg Hx Thyroid cancer Neg Hx Relation Name Status Comments Father Mother Social History Tobacco Use Types Packs/Day Years [...] on file Legal Sex Female 9:55 AM MATHEMATICAL ENGINEER Gender Identity Not on file Sexual Orientation Not on file Obstetrics History Para Term AB IAB SAB Ectopic Multiple Livin g Live Births 1 1 1 Date Outcome GA Total Labor Labor/2nd/3rd Weight Sex Type Anes PTL Maribel A1 A5 Name Clin Term Last Filed Vital Signs Vital Sign Reading Time Taken Comments Blood Pressure 128/65 02/08/2024 8:33 AM MATHEMATICAL ENGINEER Pulse 61 02/08/2024 8:33 AM MATHEMATICAL ENGINEER Temperature 36.7 ??C (98 ??F) 12/13/2021 12:29 PM CDT Respiratory Rate 18 12/13/2021 2:13 PM CDT Oxygen Saturation 100% 02/08/2024 8:33 AM MATHEMATICAL ENGINEER Inhaled Oxygen Concentration - - Weight 68 kg (150 lb) 02/08/2024 8:33 AM MATHEMATICAL ENGINEER Height 157.5 cm (5' 2 ) 04/01/2024 3:01 PM MATHEMATICAL ENGINEER Body Mass Index 26.57 02/08/2024 8:33 AM MATHEMATICAL ENGINEER Plan of Treatment Health Maintenance Due Date Last Done Comments Depression Screening 1950 Hepatitis C Screening 1950 Osteoporosis Screening-Bone Density Scan 1950 DTaP/Tdap/Td Vaccine (1 - Tdap) 01/07/1959 Hepatitis B Screening 01/07/1966 Well Visit 65+ 01/07/2013 Fall Risk Assessment 12/13/2022 12/13/2021 Influenza Vaccine (#1) 12/06/2023201 9, 12/28/2017, 01/07/2017, Additional history exists Pneumococcal vaccine 65+ Completed 08/25/2018, 11/05 Zoster Vaccine Completed 11/12/2018, 09/04, 03/07/2015 Breast Cancer Screening-Mammogram Discontinued 04/01/2024, 02/23/2023, 02/21/2022, Additional history exists Procedures Procedure Name Priority Date/Time Associated Diagnosis Comments SCREENING MAMMOGRAM BILATERAL W WARREN Schedule Routine, Read Routine (OP Routine) 04/01/2024 3:08 PM MATHEMATICAL ENGINEER Screening mammogram, encounter for US CAROTIDS DUPLEX BILATERAL Schedule Routine, Read Routine (OP Routine) 02/08/2024 8:35 AM MATHEMATICAL ENGINEER Carotid occlusion, left from Last 3 Months Results * Screening Mammogram Bilateral W Warren (04/01/2024 3:08 PM MATHEMATICAL ENGINEER) Anatomical Region Laterality Modality Breast Bilateral Mammography 04/01/2024 3:31 PM MATHEMATICAL ENGINEER Impressions 04/01/2024 3:31 PM MATHEMATICAL ENGINEER There is no mammographic evidence of malignancy. A 1 year screening mammogram is recommended. BI-RADS: 1 - Negative. The patient has been or will be contacted. The patient will be entered into a reminder system with a target due date of 1 year for her next mammogram. Electronically signed by: Joseph Mckoy M.D. Narrative 04/01/2024 3:31 PM MATHEMATICAL ENGINEER EXAMINATION: SCREENING MAMMOGRAM BILATERAL W WARREN ORDERING HEALTHCARE PROVIDER: SELF SCREENING MAMMOGRAM HISTORY: [...] US Carotids Duplex Bilateral (02/08/2024 8:35 AM MATHEMATICAL ENGINEER) Anatomical Region Laterality Modality Vascular Bilateral Ultrasound 02/08/2024 8:13 AM MATHEMATICAL ENGINEER Narrative 02/08/2024 7:34 PM MATHEMATICAL ENGINEER [facility] - Department of Vascular Surgery, Vascular Laboratory [address] [place] [address] Carotid Duplex Ultrasound Report Patient Name: ANDREA BUSTAMANTE : 1950 (74y 1m) Study Date: 02/08/2024 8:13:19 AM Gender: F Tech: Location: [facility] Provider: SHAREE GARZON ?Quality: Adequate Order Provider: SHAREE GARZON PROCEDURES: Carotid Report: Carotid duplex examination [...] PSV ?69 ? cm/sec - FINDINGS: Performing Heavy Equipment Diesel Mechanic: Ashlie Tinoco RVT. Rt Common Carotid Artery: [...] By: Tee Cline MD FACS 2024-02-08 19:33:39 MATHEMATICAL ENGINEER Procedure Note Tee Cline MD - 02/08/2024 [facility] - Department of Vascular Surgery,Vascular Laboratory [address] [place] [address] Carotid Duplex Ultrasound Report Patient Name: ANDREA BUSTAMANTE : 1950 (74y 1m) Study Date: 02/08/2024 8:13:19 AM Gender: F Tech: Location: [facility] Ref Provider: SHAREE GARZON Quality: Adequate Order Provider: SHAREE GARZON PROCEDURES: Carotid Report: Carotid duplex examination [...] LT VERT PSV 69cm/sec - FINDINGS: Performing Heavy Equipment Diesel Mechanic: Ashlie Tinoco RVT. Rt Common Carotid Artery: [...] above. Electronically Signed By: Tee Cline MD [facility] 2024-02-08 19:33:39 MATHEMATICAL ENGINEER Sharee Garzon ACUPRESSURIST IM US PROCEDURES Final Result from Last 3 Months Insurance [facility] MEDICARE MEDICARE SOLUTIONS [facility] Address: [address] [place] [address] Advance Directives For more information, please contact: [phone] * Full Code (Latest Code Status on File) Date Activated Date Inactivated Comments 12/13/2021 12:29 PM 12/13/2021 7:[address] Magistrate Relationship Specialty Start Date End Date Gerry Johnston DO PCP - General 06/10/16 Salvador Chirinos MD [address] [place] [address] [address]A [address] [address] Consulting Physician Obstetrics and Gynecology 02/19/23
--- OUTSIDE RECORDS SUMMARY | 2024-04-28 19:15 | XMS_ITS | Encounter Summary ---
Author Organization [facility] Address [address] [place] [address] Phone Care Team Providers Care Button Cutting Machine Operator Name Role Phone Gerry Johnston DO Primary Care Provider +- [phone] Salvador Chirinos MD Unavailable [phone] Encounter Details Date Type Department Care Team (Latest Contact Info) Description 01/29/2017 Orders Only [facility] CONVERSION Scanning, Provider Social History Tobacco Use Types Packs/Day Years Used Date Smoking Tobacco: Never Comments Unknown Sex and Gender Information Value Date Recorded Sex Assigned at Not on file Legal Sex Female 9:55 AM CUSTOMER OPERATIONS INTERN Gender Identity Not on file Sexual Orientation Not on file documented as of this encounter Plan of Treatment Not on file documented as of this encounter Procedures Procedure Name Priority Date/Time Associated Diagnosis Comments VASCULAR LABORATORY REPORT 01/29/2017 12:11 PM CDT documented in this encounter Results * VASCULAR LABORATORY REPORT (01/29/2017 12:11 PM CDT) Anatomical Region Laterality Modality Ultrasound us Provider Scanning CV VASCULAR PROCEDURES Final R esult documented in this encounter Visit Diagnoses Not on filedocumented in this encounter Care Teams Button Cutting Machine Operator Relationship Specialty Start Date End Date Gerry Johnston DO PCP - General 06/10/16 Salvador Chirinos MD [address] [place] [address] Consulting Physician Obstetrics and Gynecology 02/19/23 documented as of this encounter
--- OUTSIDE RECORDS SUMMARY | 2024-04-28 19:15 | XMS_ITS | Clinical Summary ---
Author Organization [facility] Address [address] [place] [address] Care Team Providers Care Cut Press Operator Name Role Phone Vickie Gerry Mariann DO Primary Care Provider [phone] Source Comments [facility],non-[facility] Affiliates and Associated Physician Practices is amultiple site organization consisting of ambulatory clinics and hospital sitesin [place], [place], [place] and [place]. This disclosure is being madepursuant to the Care Everywhere program and may not contain all information available regarding this patient. Last updated 17.[facility] Ent[facility] Allergies Active Allergy Reactions Criticality Noted Date [...] Zoster Hzv Vacc Recombinant Inj Im 11/12/2018, Family History Medical History Relation Name Comments Alzheimer's Disease Father Parkinson's Disease Father CVA Mother Relation Name Status Comments Father Mother Social [...] Description 08/30/2024 10:45 AM CDT [facility] Visit [facility] SOCIAL WORK PROFESSOR [address], [facility] [address] [place] [address] Kimani Rodriguez Che, MD [address] [facility] [address] [place] [address] Health Maintenance Due Date Last Done Comments BONE DENSITY TESTING 1950 HEPATITIS C SCREENING 01/03/1966 DTAP/TDAP/TD VACCINES (1 - Tdap) 01/07/1967 PNEUMOCOCCAL VACCINE 50+ (2 of 2 - PPSV23) 08/26/2019 08/25/2018 Respiratory Syncytial Virus (RSV) Vaccine Pt: or over 60 yrs (1 - 1-dose 75+ series) 01/07/2023 COVID-19 VACCINE ( - season) 2023 02/14/2022, 08/13/2021, 01/30/2021, Additional history exists INFLUENZA VACCINE (#1) 2023 , 12/24/2020, 12/29/2019, Additional history exists DEPRESSION SCREENING 04/06/2024 08/21/2023 MEDICARE AWV ? CALENDAR YEAR 2024 ZOSTER VACCINE Completed 11/12/2018, 09/13/2018 HEPATITIS B VACCINE Aged Out No longe r eligible based on patient's age to complete this topic HIB VACCINE Aged Out No longer eligi ble based on patient's age to complete this topic HPV VACCINE Aged Out No longer eligi ble based on patient's age to complete this topic MENINGOCOCCAL (Group B) VACCINE Aged Out No longer eligible based on patient's age to complete this topic MENINGOCOCCAL VACCINE Aged Out No leti shayne eligible based on patient's age to complete this topic Care Teams Cut Press Operator Relationship Specialty Start Date End Date Gerry Johnston DO PCP - General 08/28/17
== END 2024-04-26 14:50 | disposition home or self-care (01) ==
LOC: ANHGOSHLAB 14:50
PROVIDERS: PCP Internal Medicine; Visit Provider Clinical Nurse Specialist
DX: E03.9 Hypothyroidism, unspecified (principal); R30.0 Dysuria; W19.XXXA Unspecified fall, initial encounter; R41.3 Other amnesia; R53.83 Other fatigue; I65.22 Occlusion and stenosis of left carotid artery; G25.0 Essential tremor; F07.81 Postconcussional syndrome
CPT/HCPCS: 36415; 80048; 81001; 82607; 84443; 85025; 87086

== ENCOUNTER 2024-05-13 13:31 | Outpatient (CLI) | payer MEDICARE, SELFPAY ==
--- NOTE | ~2024-05-13 | MR_ITS ---
EXAMINATION: MR brain/brain stem wo/w con DATE: 05/13/2024 14:43 INDICATION: Unspecified abnormalities of gait and immobility. TECHNIQUE: Magnetic resonance imaging (MRI) of the brain and brainstem was performed without and with 13 mL MultiHance intravenous contrast. COMPARISON: Brain MRI 06/05/2023, head CT 04/18/2024 FINDINGS: There are a few foci of nonspecific increased T2-weighted signal intensity in the cerebral white matter, which is within normal limits for the patient's age. There is no intracranial hemorrhag e, acute infarction, or abnormal intracranial mass lesion. The ventricles are normal in size. There i s loss of the normal left internal carotid artery flow-void. There are likely changes of ocular lens replacement surgeries. There is mild mucosal thickening in the ethmoid sinuses. The mastoid air cells are normal. IMPRESSION: 1. 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 Reviewed, dictated and finalized at location A. ABILITY TECHNICIAN
--- OUTSIDE RECORDS SUMMARY | 2024-05-13 13:35 | XMS_ITS | Encounter Summary ---
Author Organization [facility] Healthcare Address [address] [place] [address] Care Team Providers Care Education And Training Coordinator Name Role Phone Gerry Johnston DO Primary Care Provider +- [phone] Salvador Chirinos MD Unavailable [phone] Reason for Visit * Reason Onset Date Comments Scheduling Appointments 01/22/2021 confirmi ng mamm appt Encounter Details Date Type Department Care Team (Late st Contact Info) Description 01/22/2021 Telephone [facility] [address] [place] [address] Alexus Burr RT Scheduling Appointments (confirming mamm [...] on file Legal Sex Female 9:55 AM INCOME TAX EXPERT Gender Identity Not on file Sexual Orientation Not on file documented as of this encounter Plan of Treatment Not on file documented as of this encounter Visit Diagnoses Not on filedocumented in this encounter Care Teams Education And Training Coordinator Relationship Specialty Start Date End Date Gerry Johnston DO PCP - General 06/10/16 Salvador Chirinos MD [address] [facility] [place] [address] Consulting Physician Obstetrics and Gynecology 02/19/23 documented as of this encounter
--- OUTSIDE RECORDS SUMMARY | 2024-05-13 13:35 | XMS_ITS | Clinical Summary ---
Author Organization [facility] Address [address] [place] [address] Care Team Providers Care Emt Basic Name Role Phone Isabelnguyenkelsi Gerry Mariann DO Primary Care Provider [phone]- [phone] Source Comments [facility],non-[facility] Affiliates and Associated Physician Practices is amultiple site organization consisting of ambulatory clinics and hospital sitesin [place], [place], [place] and [place]. This disclosure is being madepursuant to the Care Everywhere program and may not contain all information available regarding this patient. 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 [address] [place] [address] Kimani Rodriguez Che, MD [address] [facility] [address] [place] [address] Health Maintenance Due Date Last Done Comments BONE DENSITY TESTING 1950 HEPATITIS C SCREENING 01/03/1966 DTAP/TDAP/TD VACCINES (1 - Tdap) 01/07/1967 PNEUMOCOCCAL VACCINE 50+ (2 of 2 - PPSV23) 08/26/2019 08/25/2018 Respiratory Syncytial Virus (RSV) Vaccine Pt: or over 60 yrs (1 - 1-dose 75+ series) 01/07/2023 COVID-19 VACCINE ( season) 2023 02/14/2022, 08/13/2021, 01/30/2021, Additional history exists INFLUENZA VACCINE (#1) 2023 , 12/24/2020, 12/29/2019, Additional history exists DEPRESSION SCREENING 04/06/2024 08/21/2023 MEDICARE AWV CALENDAR YEAR 2024 ZOSTER VACCINE Completed 11/12/2018, [...] age to complete this topic Care Teams Emt Basic Relationship Specialty Start Date End Date Gerry Johnston DO PCP - General 08/28/17
--- OUTSIDE RECORDS SUMMARY | 2024-05-13 13:35 | XMS_ITS | Encounter Summary ---
Author Organization [facility] Address [address] [facility] [address] [place] [id number] Care Team Providers Care Pipe Recovery Specialist Name Role Phone Gerry Johnston DO Primary Care Provider + [phone] Gerry Johnston DO Primary Care Provider + [phone] Salvador Chirinos MD Unavailable [phone] Encounter Details Date Type Department Care Team (Late st Contact Info) Description 04/09/2016 Orders Only [facility] Provider, MD Barry [address] [place] [address] Social History Tobacco Use Types Packs/Day Years Used Date Smoking Tobacco: Never Assessed Comments Unknown Sex and Gender Information Value Date Recorded Sex Assigned at Not on file Legal Sex Female 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
--- OUTSIDE RECORDS SUMMARY | 2024-05-13 13:35 | XMS_ITS | Encounter Summary ---
Author Organization [facility] Address [address] [place] [address] Phone Care Team Providers Care Deburrer Strip Name Role Phone Gerry Johnston DO Primary Care Provider +- [phone] Salvador Chirinos MD Unavailable [phone] Encounter Details Date Type Department Care Team (Latest Contact Info) Description 01/29/2017 Orders Only [facility] CONVERSION Scanning, Provider Social History Tobacco Use Types Packs/Day Years Used Date Smoking Tobacco: Never Comments Unknown Sex and Gender Information Value Date Recorded Sex Assigned at Not on file Legal 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
--- OUTSIDE RECORDS SUMMARY | 2024-05-13 13:35 | XMS_ITS | Clinical Summary ---
Author Organization [facility] Address [address] [place] [address] Care Team Providers Care Oral And Maxillofacial Surgeon Name Role Phone Gerry Johnston DO Primary Care Provider [phone] Salvador Chirinos MD Unavailable [phone] Allergies Active Allergy Reactions Criticality Noted Date Comments Solifenacin Headache,Shortness o f breath High 05/27/2021 Sulfa (Sulfonamide Antibiotics) Rash,Itching Medium 02/23/2012 Medications aspirin 325 mg tablet daily. Active rosuvastatin (CRESTOR) 20 mg tablet Take 1 tablet (20 mg total) by mouth daily 2 Active levothyroxine (SYNTHROID, LEVOTHROID) 75 mcg tablet Take 1 tablet (75 mcg total) by mouth drosser before breakfast 6 Active cyanocobalamin (Vitamin B-12) [...] Department Care Team Description 04/01/2024 2:41 PM HANDLE SEWER - 04/01/2024 11:59 PM HANDLE SEWER Hospital Encounter [facility] [address] [place] [address] Screening mammogram, encounter for Discharge Disposition: Discharge to home or self care from Last 3 Months Immunizations Name Administration [...] on file Legal Sex Female 9:55 AM HANDLE SEWER Gender Identity Not on file Sexual Orientation Not on file Obstetrics History Para Term AB IAB SAB Ectopic Multiple Livin g Live Births 1 1 1 Date Outcome GA Total Labor Labor/2nd/3rd Weight Sex Type Anes PTL Maribel A1 A5 Name Clin Term Last Filed Vital Signs Vital Sign Reading Time Taken Comments Blood Pressure 128/65 02/08/2024 8:33 AM HANDLE SEWER Pulse 61 02/08/2024 8:33 AM HANDLE SEWER Temperature 36.7 C (98 F) 12/13/2021 12:29 PM CDT Respiratory Rate 18 12/13/2021 2:13 PM CDT Oxygen Saturation 100% 02/08/2024 8:33 AM HANDLE SEWER Inhaled Oxygen Concentration - - Weight 68 kg (150 lb) 02/08/2024 8:33 AM HANDLE SEWER Height 157.5 cm (5' 2 ) 04/01/2024 3:01 PM HANDLE SEWER Body Mass Index 26.57 02/08/2024 8:33 AM HANDLE SEWER Plan of Treatment Health Maintenance Due Date Last Done Comments Depression Screening 1950 Hepatitis C Screening 1950 Osteoporosis Screening-Bone Density Scan 1950 DTaP/Tdap/Td Vaccine (1 - Tdap) 01/07/1959 Hepatitis B Screening 01/07/1966 Well Visit 65+ 01/07/2013 Fall Risk Assessment 12/13/2022 12/13/2021 Influenza Vaccine (#1) 2023 9, 12/28/2017, 01/07/2017, Additional history exists Pneumococcal vaccine 65+ Completed 08/25/2018, 11/05 Zoster Vaccine Completed 11/12/2018, 09/04, 03/07/2015 Breast Cancer Screening-Mammogram Discontinued 04/01/2024, 02/23/2023, 02/21/2022, Additional history exists Procedures Procedure Name Priority Date/Time Associated Diagnosis Comments SCREENING MAMMOGRAM BILATERAL W [place] Schedule Routine, Read Routine (OP Routine) 04/01/2024 3:08 PM HANDLE SEWER Screening mammogram, encounter for from Last 3 Months Results * Screening Mammogram Bilateral [place] (04/01/2024 3:08 PM HANDLE SEWER) Anatomical Region Laterality Modality Breast Bilateral Mammography 04/01/2024 3:31 PM HANDLE SEWER Impressions 04/01/2024 3:31 PM HANDLE SEWER There is no mammographic evidence of malignancy. A 1 year screening mammogram is recommended. BI-RADS: 1 - Negative. The patient has been or will be contacted. The patient will be entered into a reminder system with a target due date of 1 year for her next mammogram. Electronically signed by: Joseph Mckoy M.D. Narrative 04/01/2024 3:31 PM HANDLE SEWER EXAMINATION: SCREENING MAMMOGRAM BILATERAL W [place] ORDERING HEALTHCARE PROVIDER: SELF SCREENING MAMMOGRAM HISTORY: Routine screening mammography. COMPARISON: 02/23/2023,02/21/2022, 01/23/2021, 01/21/2020, 01/04/2019, 12/09/2017 TECHNIQUE: CC and [...] Mammogram IMG MAMMO PROCEDURES Fi nal Result from Last 3 Months Insurance AETNA MEDICARE [facility], [facility] MEDICARE Address: [facility] [id number] [place] [id number] MEDICARE SOLUTIONS [facility] MEDICARE Address: [address] [address] [place] [address] AET MEDICARE [facility], [facility] MEDICARE Address: [facility] [id number] [place] [address] Advance Directives For more information, please contact: [phone] * Full Code (Latest Code Status on File) Date Activated Date Inactivated Comments 12/13/2021 12:29 PM 12/13/2021 7:10 PM Care Teams Oral And Maxillofacial Surgeon Relationship Specialty Start Date End Date Gerry Johnston DO PCP - General 06/10/16 Salvador Chirinos MD [address] [place] [address] [address] [address] Consulting Physician Obstetrics and Gynecology 02/19/23
--- OUTSIDE RECORDS SUMMARY | 2024-05-13 13:35 | XMS_ITS | Referral Summary ---
Author Organization [facility] Address [address] [place] [address] Care Team Providers Care Credit Risk Analytics Manager Name Role Phone Gerry Johnston DO Primary Care Provider [phone] Salvador Chirinos MD Unavailable [phone] Encounters Date Type Department Care Team Description 04/01/2024 2:41 PM FURNITURE DESIGNER - 04/01/2024 11:59 PM FURNITURE DESIGNER Hospital Encounter [facility] [address] [place], [place] [id number] Screening mammogram, encounter for Discharge Disposition: Discharge to home or self care from Last 3 Months Allergies Active Allergy Reactions Criticality Noted Date Comments Solifenacin Headache,Shortness o f breath High 05/27/2021 Sulfa (Sulfonamide Antibiotics) Rash,Itching Medium 02/23/2012 Medications aspirin 325 mg tablet daily. 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 Hypothyroidism 11/20/2015 Carotid occlusion, left [...] on file Legal Sex Female 9:55 AM FURNITURE DESIGNER Gender Identity Not on file Sexual Orientation Not on file Last Filed Vital Signs Vital Sign Reading Time Taken Comments Blood Pressure 128/65 02/08/2024 8:33 AM FURNITURE DESIGNER Pulse 61 02/08/2024 8:33 AM FURNITURE DESIGNER Temperature 36.7 C (98 F) 12/13/2021 12:29 PM CDT Respiratory Rate 18 12/13/2021 2:13 PM CDT Oxygen Saturation 100% 02/08/2024 8:33 AM FURNITURE DESIGNER Inhaled Oxygen Concentration - - Weight 68 kg (150 lb) 02/08/2024 8:33 AM FURNITURE DESIGNER Height 157.5 cm (5' 2 ) 04/01/2024 3:01 PM FURNITURE DESIGNER Body Mass Index 26.57 02/08/2024 8:33 AM FURNITURE DESIGNER Plan of Treatment Not on file Procedures Procedure Name Priority Date/Time Associated Diagnosis Comments SCREENING MAMMOGRAM BILATERAL W [place] Schedule Routine, Read Routine (OP Routine) 04/01/2024 3:08 PM FURNITURE DESIGNER Screening mammogram, encounter for from Last 3 Months Results * Screening Mammogram Bilateral [place] (04/01/2024 3:08 PM FURNITURE DESIGNER) Anatomical Region Laterality Modality Breast Bilateral Mammography 04/01/2024 3:31 PM FURNITURE DESIGNER Impressions 04/01/2024 3:31 PM FURNITURE DESIGNER There is no mammographic evidence of malignancy. A 1 year screening mammogram is recommended. BI-RADS: 1 - Negative. The patient has been or will be contacted. The patient will be entered into a reminder system with a target due date of 1 year for her next mammogram. Electronically signed by: Joseph Mckoy M.D. Narrative 04/01/2024 3:31 PM FURNITURE DESIGNER EXAMINATION: SCREENING MAMMOGRAM BILATERAL W [place] ORDERING [...] nal Result from Last 3 Months Insurance [facility] MEDICARE [facility] MEDICARE Address: [facility] [address] [place] [address] MEDICARE SOLUTIONS AET[employer] MEDICARE Advance Directives For more information, please contact: [phone] * Full Code (Latest Code Status on File) Date Activated Date Inactivated Comments 12/13/2021 12:29 PM 12/13/2021 7:10 PM Care Teams Credit Risk Analytics Manager Relationship Specialty Start Date End Date Gerry Johnston DO PCP - General 06/10/16 Salvdaor Chirinos MD [address] [facility] [address] [address] Consulting Physician Obstetrics and Gynecology 02/19/23
--- OUTSIDE RECORDS SUMMARY | 2024-05-13 13:35 | XMS_ITS | Referral Summary ---
Author Organization [facility] Address [address] [place] [address] Care Team Providers Care Sole Cutter Name Role Phone Vickie Gerry Mariann DO Primary Care Provider [phone] Source Comments [facility],non-[facility] Affiliates and Associated Physician Practices is amultiple site organization consisting of ambulatory clinics and hospital sitesin [place], [place], [place] and [place]. This disclosure is being madepursuant to the Care Everywhere program and may not contain all information available regarding this patient. Last updated 17.[facility] Allergies Active Allergy Reactions Criticality Noted Date [...] Description 08/30/2024 10:45 AM CDT Office Visit [facility] - GLASS EMBOSSER [address] [place] [address] Kimani Rodriguez Che, MD [address] [facility] [address] [place] [phone] Care Teams Sole Cutter Relationship Specialty Start Date End Date Gerry Johnston DO PCP - General 08/28/17
--- OUTSIDE RECORDS SUMMARY | 2024-05-13 13:35 | XMS_ITS | Patient Health Summary ---
Author Organization [facility] Address [address] [facility] [place] [address] Care Team Providers Care Business Economist Name Role Phone Vickie Gerry Mariann DO Primary Care Provider [phone] Note from [facility],non-owned Affiliates and Associated Physician Practices is amultiple site organization consisting of ambulatory clinics and hospital sitesin [place], [place], [place] and [place]. This disclosure is being madepursuant to the Care Everywhere program and may not contain all information available regarding this patient. Last updated 17.[facility] Allergies * Solifenacin(Headache,Shortness of Breath) -High Criticality [...] URINE COMPREHENSIVE(Performed 07/09/2021) Performed for Dysuria * AK INSERT NON-INDWELLING BLADDER(Performed 07/09/2021) Performed for Dysuria * URINALYSIS AUTO - POINT OF CARE (AMB) [facility](Performed 07/09/2021) Performed for Dysuria * CULTURE URINE(Performed 12/11/2020) Performed for Dysuria * CULTURE URINE(Performed 09/08/2019) Performed for Acute cystitis without hematuria * AK CYSTOURETHROSCOPY(Performed 12/22/2017) Performed for Recurrent UTI, Urge incontinence, Nocturia * CULTURE URINE(Performed 11/18/2017) Performed for Acute cystitis without hematuria * AK INSERT NON-INDWELLING BLADDER(Performed 10/27/2017) Performed for Recurrent [...] time period is included. Culture [facility] Comment: CULTURE, URINE, SPECIAL Micro Number: [id number] Test Status: Final Specimen Source: Urine Specimen Quality: Adequate Result: No Growth Test Performed at: [facility] [address] CHANDANA CHARLTON MD Microbiology URINE SPECIMEN COLLECTION, CATHETERIZED / Unknown 07/09/2021 2:44 PM CDT 07/10/2021 1:21 AM CDT Kimani Rodriguez MD LAB - MICROBIOLOGY O RDERABLES [address] [address] * AK INSERT NON-INDWELLING BLADDER (07/09/2021 12:15 PM CDT) Narrative Kimani Rodriguez Che, MD - 07/09/2021 12:15 PM CDT Kimani Rodriguez Che, MD 07/09/2021 12:15 PM The patient was prepped [...] POCT neg Ketones UA POCT neg Specific [place] UA 1.010 Blood Urine POCT neg pH UA 6.0 Protein UA neg Urobilinogen UA 0.2 Nitrite UA neg WBC UA neg Urine URINE / Unknown 07/09/2021 Kimani Rodriguez MD LAB - POINT OF CARE ORDERABLES * CULTURE URINE (12/11/2020 2:48 PM CDT) Only the most recent of4 resultswithin the time period is included. Urine Culture Routine Final report [facility] INSURANCE BILL Result 1 [facility] INSURANCE BILL Comment: Mixed urogenital lisset 10,000-25,000 colony forming units per mL Urine URINE SPECIMEN OBTAINED BY CLEAN CATCH PROCEDURE / Unknown 12/11/2020 2:48 PM CDT 12/11/2020 Narrative Resulting Agency Comment Lab Testing performed at: [facility] [address] [facility] [id number] Kimani Rodriguez MD LAB - MICROBIOLOGY O RDERABLES [facility] INSURANCE BILL [address] [place] [address] * AK CYSTOURETHROSCOPY (12/22/2017 1:32 PM CDT) Narrative Kimani Rdoriguez Che, MD - 12/22/2017 1:32 PM CDT Kimani Rodriguez Che, MD 12/22/2017 1:32 PM Cystoscopy Procedure Note Indications: frequency, urgency [...] body. Urethra - no foreign body. Condition: Good Complications: None Kimani Rodriguez MD PROCEDURE/MINOR SURG ICAL ORDERABLES * AK INSERT NON-INDWELLING BLADDER (10/27/2017 10:32 AM CDT) Narrative Kimani Rodriguez Che, MD - 10/27/2017 10:32 AM CDT Kimani Rodriguez Che, MD 10/27/2017 10:32 AM Please look at progress [...] pH units Blood UA neg Negative Specific [place] UA POCT 1.005 1.002 - 1.030 Ketone UA neg Negative Bilirubin UA POCT neg Negative Glucose UA neg Negative Urine URINE / Unknown 10/27/2017 Kimani Rodriguez MD LAB - POINT OF CARE ORDERABLES * URINALYSIS - POINT OF CARE ([facility]) [facility] (10/21/2016) Glucose UA neg [facility] Bilirubin UA POCT neg [facility] Ketones UA POCT neg ON LICENSE OF [facility] Specific [place] UA 1.010 ON LICENSE OF [facility] Blood Urine POCT neg ON LICENSE OF [facility] pH UA 5.0 [facility] Protein UA neg [facility] Urobilinogen UA neg ON LICENSE OF [facility] Nitrite UA neg [facility] WBC neg [facility] Urine specimen (specimen) 10/21/2016 Kimani Rodriguez MD LAB - POINT OF CARE ORDERABLES ON LICENSE OF [facility] * CORTISOL SALIVA (11/22/2015 3:23 PM CDT) Salivary Cortisol MS 0.046 ug/dL [facility] ([employer]) Comment: Reference Range: Children and Adults: 8:00a.m.: 0.025 - 0.600 Noon: <0.010 - 0.330 4:00p.m.: 0.010 - 0.200 Midnight: <0.010 - 0.090 11/22/2015 3:23 PM CDT 11/22/2015 6:16 PM CDT Narrative [facility] ([employer]) - 11/30/2015 7:14 AM CDT Performed at: [facility] Endocrinology [address] [place] [id number] Gunstock Repairer: Jad Nash MD, Phone: [phone] Kurt Salazar MD LAB - BODY FLUID OR DERABLES [facility] [employer]) * T4 FREE DIRECT DIALYSIS (11/22/2015 3:03 PM CDT) T4 Free Direct Dialysis 1.5 ng/dL [facility] [employer]) Comment: Reference Range: Pubertal Children and Adults: 0.8 - 1.7 Blood specimen (specimen) BLOOD SPECIMEN / Unknown 11/22/2015 3:03 PM CDT 11/22/2015 6:14 PM CDT Narrative [facility] ([employer]) - 11/28/2015 7:14 AM CDT Performed at: 01 - [facility] [address] [place] [id number] Gunstock Repairer: Jad Nash MD, Phone: [phone] Kurt Salazar MD LAB - CHEMISTRY ORD ERABLES [facility] ([facility]) * THYROID PEROXIDASE ANTIBODY (11/22/2015 3:03 PM CDT) Thyroid Peroxidase TPO Antibody 30 0 - 34 IU/mL [facility] ([employer]) Blood specimen (specimen) BLOOD SPECIMEN / Unknown 11/22/2015 3:03 PM CDT 11/22/2015 6:14 PM CDT Narrative [facility] ([facility]) - 11/28/2015 7:14 AM CDT Performed at: [address] [place] [id number] Gunstock Repairer: Jimmy Zimmerman PhD, Phone: [phone] Kurt Salazar MD LAB - CHEMISTRY ORD ERABLES Performing Organization Address City/[facility]/ZIP Co de Phone Number [facility] ([facility]) * TSH (11/22/2015 3:03 PM CDT) Pathologist [facility] TSH 0.615 0.450 - 4.500 uIU/mL [facility] ([facility]) Blood specimen (specimen) BLOOD SPECIMEN / Unknown 11/22/2015 3:03 PM CDT 11/22/2015 6:14 PM CDT Narrative [facility] ([facility]) - 11/28/2015 7:14 AM CDT Performed at: [address] [place] [id number] Gunstock Repairer: Jimmy Zimmerman PhD, Phone: [phone] Kurt Salazar MD LAB - CHEMISTRY ORD ERABLES [facility] ([facility]) Care Teams Business Economist Relationship Specialty Start Date End Date Gerry Johnston DO PCP - General 08/28/17
== END 2024-05-13 13:32 | disposition home or self-care (01) ==
PROVIDERS: PCP Internal Medicine; Visit Provider Clinical Nurse Specialist
DX: I77.9 Disorder of arteries and arterioles, unspecified (principal); R26.9 Unspecified abnormalities of gait and mobility; R51.9 Headache, unspecified; F07.81 Postconcussional syndrome; R41.3 Other amnesia; G25.0 Essential tremor
CPT/HCPCS: 70553; A9577

== ENCOUNTER 2024-09-02 10:12 | Emergency (ER) | payer MEDICARE, SELFPAY ==
--- NOTE | 2024-09-02 10:18 | ED_ITS ---
HPI - URI/Sore Throat General Chief Complaint: Upper Respiratory Infection Stated Complaint: Cold Symptoms Source: patient Mode of arrival: ambulatory Limitations: no limitations History of Present Illness HPI Narrative: Patient is a 74-year-old who presents to the clinic with complaints nasal congestion x 2 weeks. She states she started with a sore throat 14 days ago as well, but it has resolved since then. She was on a cruise for 19 days and reports that there were a lot of people sick. Denies any shortness of breath, difficulty swallowing, nausea, fevers, or diarrhea. Related Data Home Medications ?Medication ?Instructions ?Recorded ?Confirmed ?Last Taken ?Type aspirin 325 mg tablet 325 mg PO DAILY 02/09/19 06/13/24 08/13/22 History cranberry fruit 400 mg capsule 400 mg PO DAILY 02/09/19 06/13/24 08/16/22 History mecobalamin (vitamin B12) 1,000 1,000 mcg sublingual DAILY 02/09/19 06/13/24 08/16/22 History mcg disintegrating tablet,sublingual cholecalciferol (vitamin D3) 50 4,000 unit PO DAILY 11/11/21 06/13/24 08/16/22 History mcg (2,000 unit) tablet dietary supplement 1 cap PO DAILY 11/11/21 06/13/24 08/16/22 History vitamin B complex 1 cap PO DAILY 10/27/23 06/13/24 Unknown History Allergies Allergy/AdvReac Type Severity Reaction Status Date / Time Sulfa (Sulfonamide Allergy Unknown Rash Verified 09/02/24 10:15 Antibiotics) alendronate sodium (From AdvReac Stomach Verified 09/02/24 10:15 Fosamax) issues ibandronate sodium (From AdvReac Stomach Verified 09/02/24 10:15 Boniva) issues solifenacin AdvReac Headache Verified 09/02/24 10:15 and weakness Review of Systems Review of Systems: CONSTITUTIONAL: Denies body aches, fever, chills, or sweats. Reports EYES: Denies visual changes, redness, or discharge. ENT: Reports rhinorrhea, congestion, and sore throat. Denies otalgia. CARDIOVASCULAR: Denies chest pain, palpitations, or edema. RESPIRATORY: Denies cough or dyspnea. GASTROINTESTINAL: Denies abdominal pain, nausea, vomiting, or diarrhea. GENITOURINARY: Denies dysuria or hematuria. SKIN: Denies rash, itching, or wounds. MUSCULOSKELETAL: Denies back pain, joint pain, or myalgia. NEUROLOGIC: Denies headache, numbness, tingling, or weakness. PSYCH: Denies depression or anxiety. All systems reviewed & are unremarkable except as noted in HPI and below PMFSH Past Medical History Medical History Bilateral lower extremity edema Hospital discharge follow-up COVID-19 Atherosclerotic heart disease of [place] coronary artery without angina pectoris Unspecified atherosclerosis Headache Essential tremor Carotid artery occlusion Achalasia Chicken pox Peptic ulcer disease Osteoporosis Hypothyroid Hyperlipidemia Surgical History Surgical History Status post surgical removal of malignant neoplasm of skin H/O rotator cuff surgery H/O cataract removal with insertion of prosthetic lens History of rectal surgery Hx of vaginal surgery History of hip surgery H/O breast surgery H/O: hysterectomy (~04/1982) History of thyroidectomy (~04/1984) Hx of cholecystectomy (~04/2007) Family History Family History Mother Diabetes mellitus Cerebrovascular accident, Onset Age: 94 Father Cerebrovascular accident, Onset Age: 89 Family history of Parkinson's disease Family history of Alzheimer's disease, Onset Age: 89 Sibling Cerebrovascular accident Other Family history of glaucoma Family history of thyroid disease Hypertension Social History Social History Smoking status: Never smoker Second hand tobacco smoke exposure: No Alcohol intake: current Alcohol use details: 2/MONTH Substance use: never Substance use type: does not use Do You Feel Safe in your Home?: Yes Lack of Transportation: No Lack of Food: Never True Current Housing: I Have Housing Concerned About Future Housing: No Difficulty Paying Gas/Electric Bills: No Difficulty Paying for Meds: No Currently Unemployed: No Education: Master's Degree or Higher Difficulty w/ Childcare or Family Care: No Living arrangements: with family Spiritual care concerns: No Comments At time of signature, I have reviewed and agree with nursing past medical, surgical, social and family history unless otherwise noted. Please see nursing chart for further information. There is no relevant family history pertinent to the presenting complaint. Exam Narrative: GENERAL: Well-appearing, well-nourished, and in no acute distress. EYES: EOMI. No redness or drainage. Conjunctivae normal. ENT: Mucous membranes pink and moist. Nares clear. TMs fluid filled, but intact bilaterally. Frontal tenderness with palpation. No Throat Erythema or tonsillar exudate, uvula midline. Nasal congestion noted. NECK: Normal AROM. Supple. No lymphadenopathy. CHEST: No respiratory distress. Clear to auscultation. HEART: Regular rate and rhythm. No murmur appreciated. Normal peripheral pulses. ABDOMEN: Soft, nontender, nondistended, normal active bowel sounds. SKIN: Warm, dry, no rash. Capillary refill normal. Normal skin turgor. NEURO: No focal deficits. Alert and oriented x3. Gait steady. PSYCH: Normal affect. No signs of depression or anxiety. Course Course Level of Care: Express Care Visit MDM - URI/Sore Throat MDM Narrative Medical decision making narrative: Discussed physical exam findings. Antibiotic for sinusitis. Advised supportive measures and signs/symptoms to go to the ER. Pt is appropriate for outpt treatment and follow up. Differential Diagnosis Differential diagnosis: Likely upper respiratory infection, sinusitis and viral infection Critical Care Time Critical Care Time Critical Care Time: No Discharge Plan Discharge Clinical Impression: Sinusitis Qualifiers: Sinusitis location: frontal Chronicity: acute Recurrence: non-recurrent Qualified Code(s): J01.10 - Acute frontal sinusitis, unspecified Patient Disposition: Home Condition: Stable Instructions: Sinusitis (ED) Additional Instructions: Take antibiotic as prescribed. Recommend Flonase spray and Zyrtec (or Claritin/Letty) over the counter Cough syrup may cause drowsiness; avoid driving or take it at night time. Tylenol 1000mg every 8 hours as needed for pain Symptomatic treatment includes: rest, fluids, and increase humidity of the air at home. Follow up with your primary care provider in 1 week. Go to the ER for worsening symptoms or concerns. Patient Language: Malay Prescriptions: New amoxicillin-pot clavulanate 875-125 mg tablet 1 tablet PO Q12H 10 Days Qty: 20 0RF No Action aspirin 325 mg tablet 325 mg PO DAILY mecobalamin (vitamin B12) 1,000 mcg tablet,disintegrating 1,000 mcg SUBLINGUAL DAILY cranberry fruit 400 mg capsule 400 mg PO DAILY levothyroxine [Synthroid] 75 mcg tablet 75 mcg PO DAILY Qty: 90 3RF liothyronine 5 mcg tablet See Rx Instructions .ROUTE .COMPLEX Qty: 90 3RF Dose Instruction: TAKE 1 TABLET BY MOUTH DAILY Rx Instructions: TAKE 1 TABLET BY MOUTH DAILY rosuvastatin 20 mg tablet 20 mg PO DAILY Qty: 90 3RF omeprazole 20 mg capsule,delayed release(DR/EC) See Rx Instructions .ROUTE BID Qty: 180 3RF Dose Instruction: TAKE 1 CAPSULE BY MOUTH TWICE DAILY Rx Instructions: TAKE 1 CAPSULE BY MOUTH TWICE DAILY twice a day; vitamin B complex Capsule 1 cap PO DAILY cholecalciferol (vitamin D3) 50 mcg (2,000 unit) tablet 4,000 unit PO DAILY dietary supplement Capsule 1 cap PO DAILY Patient Comments: SBIProtect- Dietary Supplement Ortho Digestzyme Super Aloe Follow-up/Referrals: Gerry Johnston DO [Primary Care Provider] - Time of Disposition: 10:35
[2024-09-02 10:22] VITALS: BP 147/74; PULSE 79; RESP 16; TEMP 37.4; O2SAT 100
== END 2024-09-02 10:37 | disposition home or self-care (01) ==
PROVIDERS: PCP Internal Medicine
DX: J01.10 Acute frontal sinusitis, unspecified (principal); I25.10 Atherosclerotic heart disease of native coronary artery without angina pectoris; E89.0 Postprocedural hypothyroidism; E78.5 Hyperlipidemia, unspecified; M81.0 Age-related osteoporosis without current pathological fracture; Z86.16 Personal history of COVID-19; Z85.828 Personal history of other malignant neoplasm of skin
CPT/HCPCS: 99213; G0463

== ENCOUNTER 2024-09-30 10:15 | Emergency (ER) | payer MEDICARE, SELFPAY ==
[2024-09-30 10:26] VITALS: BP 148/64; PULSE 65; RESP 16; TEMP 36.9; O2SAT 100
--- NOTE | 2024-09-30 10:27 | ED_ITS ---
HPI - Female Genitourinary General Chief complaint: Urogenital-Female Stated complaint: Uti Symptoms Time Seen by Provider: 09/30/24 10:28 Source: patient and RN notes reviewed Mode of arrival: ambulatory Limitations: no limitations History of Present Illness HPI Narrative: 74-year-old female presents with concern for 4 day history of dysuria, urgency. She reports history of UTIs. She denies fever, aches, sweats. Reports she has felt cold for couple of days. She denies back pain or abdominal pain. MD elicited complaint: UTI Related Data Home Medications ?Medication ?Instructions ?Recorded ?Confirmed ?Last Taken ?Type aspirin 325 mg tablet 325 mg PO DAILY 02/09/19 09/13/24 08/13/22 History cranberry fruit 400 mg capsule 400 mg PO DAILY 02/09/19 09/13/24 08/16/22 History mecobalamin (vitamin B12) 1,000 1,000 mcg sublingual DAILY 02/09/19 09/13/24 08/16/22 History mcg disintegrating tablet,sublingual cholecalciferol (vitamin D3) 50 4,000 unit PO DAILY 11/11/21 09/13/24 08/16/22 History mcg (2,000 unit) tablet vitamin B complex 1 cap PO DAILY 10/27/23 09/13/24 Unknown History Allergies Allergy/AdvReac Type Severity Reaction Status Date / Time Sulfa (Sulfonamide Allergy Unknown Rash Verified 09/30/24 10:25 Antibiotics) alendronate sodium (From AdvReac Stomach Verified 09/30/24 10:25 Fosamax) issues ibandronate sodium (From AdvReac Stomach Verified 09/30/24 10:25 Boniva) issues solifenacin AdvReac Headache Verified 09/30/24 10:25 and weakness Review of Systems Review of Systems: CONSTITUTIONAL: Denies malaise, chills, sweats, or fever. CARDIOVASCULAR: Denies chest pain, palpitations, or edema. RESPIRATORY: Denies cough or dyspnea. GASTROINTESTINAL: Denies abdominal pain, nausea, vomiting, diarrhea GENITOURINARY: Reports dysuria, frequency, urgency. Denies flank pain or hematuria. SKIN: Denies rash or itching. MUSCULOSKELETAL: Denies back pain or myalgia. All systems reviewed & are unremarkable except as noted in HPI and below PMFSH Past Medical History Medical History Bilateral lower extremity edema Hospital discharge follow-up COVID-19 Atherosclerotic heart disease of [place] coronary artery without angina pectoris Unspecified atherosclerosis Headache Essential tremor Carotid artery occlusion Achalasia Chicken pox Peptic ulcer disease Osteoporosis Hypothyroid Hyperlipidemia Surgical History Surgical History Status post surgical removal of malignant neoplasm of skin H/O rotator cuff surgery H/O cataract removal with insertion of prosthetic lens History of rectal surgery Hx of vaginal surgery History of hip surgery H/O breast surgery H/O: hysterectomy (~04/1982) History of thyroidectomy (~04/1984) Hx of cholecystectomy (~04/2007) Family History Family History Mother Diabetes mellitus Cerebrovascular accident, Onset Age: 94 Father Cerebrovascular accident, Onset Age: 89 Family history of Parkinson's disease Family history of Alzheimer's disease, Onset Age: 89 Sibling Cerebrovascular accident Other Family history of glaucoma Family history of thyroid disease Hypertension Social History Social History Smoking status: Never smoker Second hand tobacco smoke exposure: No Alcohol intake: current Alcohol use details: 2/MONTH Substance use: never Substance use type: does not use Do You Feel Safe in your Home?: Yes Lack of Transportation: No Lack of Food: Never True Current Housing: I Have Housing Concerned About Future Housing: No Difficulty Paying Gas/Electric Bills: No Difficulty Paying for Meds: No Currently Unemployed: No Education: Master's Degree or Higher Difficulty w/ Childcare or Family Care: No Living arrangements: with family Spiritual care concerns: No Comments At time of signature, agree with nursing past medical, surgical, social and family history. There is no relevant family history pertinent to the presenting complaint Exam Narrative: GENERAL: Well-appearing, well-nourished, and in no acute distress. HEAD: Normocephalic. EYES: PERRLA, conjunctivae clear. NECK: Supple. No lymphadenopathy CHEST: Clear to auscultation. No respiratory distress. HEART: Regular rate and rhythm. ABDOMEN: Soft, nontender upon palpation, nondistended, normal active bowel sounds, no palpable or pulsatile masses, no guarding. No CVA tenderness SKIN: Warm, dry, no rash. NEURO: Alert and oriented x3. PSYCH: Normal mood and affect Course Course Emergency Course: Patient is aware of diagnosis, understands and agrees to treatment plan. Anticipatory guidance given. Patient agrees to follow-up as directed and is aware of reasons to seek care at the emergency department. Portions of this record may have been created with voice recognition software Level of Care: Express Care Visit Vital Signs Vital signs: Vital Signs Temperature 98.4 F 09/30/24 10:26 Pulse Rate 65 09/30/24 10:26 Respiratory Rate 16 09/30/24 10:26 Blood Pressure 148/64 H 09/30/24 10:26 Pulse Oximetry 100 09/30/24 10:26 Temperature 98.4 F 09/30/24 10:26 Pulse Rate 65 09/30/24 10:26 Respiratory Rate 16 09/30/24 10:26 Blood Pressure 148/64 H 09/30/24 10:26 Pulse Oximetry 100 09/30/24 10:26 Reviewed. MDM - Female Genitourinary MDM Narrative Medical decision making narrative: Exam findings and UA show no acute concerns or changes; patient is non-toxic appearing and is in no distress. Patient is appropriate for outpatient treatment and follow-up. Differential Diagnosis Differential diagnosis: Likely urinary tract infection and cystitis Critical Care Time Critical Care Time Critical Care Time: No Discharge Plan Discharge Clinical Impression: Urinary tract infection Patient Disposition: Home Condition: Stable Instructions: Antibiotic Form Additional Instructions: We will send a urine culture to the lab; if the culture identifies an organism that the prescribed antibiotic will not treat, you will receive a phone call from an urgent care staff member and an appropriate antibiotic will be prescribed. -Your symptoms should begin to improve within a day of starting antibiotics. But you should finish all the antibiotic pills you get. Otherwise your infection might come back. -Also recommend: increase water intake. Tylenol/ibuprofen as needed for pain or fever -Follow-up with your primary care provider for urine recheck or seek ER visit if condition worsens with high fever, nausea, vomiting and severe back pain. Patient Language: German Prescriptions: New ciprofloxacin HCl 500 mg tablet 500 mg PO Q12H 5 Days Qty: 10 0RF No Action aspirin 325 mg tablet 325 mg PO DAILY mecobalamin (vitamin B12) 1,000 mcg tablet,disintegrating 1,000 mcg SUBLINGUAL DAILY cranberry fruit 400 mg capsule 400 mg PO DAILY vitamin B complex Capsule 1 cap PO DAILY cholecalciferol (vitamin D3) 50 mcg (2,000 unit) tablet 4,000 unit PO DAILY levothyroxine [Synthroid] 75 mcg tablet 75 mcg PO DAILY Qty: 90 3RF liothyronine 5 mcg tablet See Rx Instructions .ROUTE .COMPLEX Qty: 90 3RF Dose Instruction: TAKE 1 TABLET BY MOUTH DAILY Rx Instructions: TAKE 1 TABLET BY MOUTH DAILY omeprazole 20 mg capsule,delayed release(DR/EC) See Rx Instructions .ROUTE BID Qty: 180 3RF Dose Instruction: TAKE 1 CAPSULE BY MOUTH TWICE DAILY Rx Instructions: TAKE 1 CAPSULE BY MOUTH TWICE DAILY twice a day; rosuvastatin 20 mg tablet 20 mg PO DAILY Qty: 90 3RF Follow-up/Referrals: Gerry Johnston DO [Primary Care Provider] - Time of Disposition: 10:43
[2024-09-30 10:58] LABS: EDUAAPPEAR Cloudy; EDUABILI Negative (Negative); EDUABLOOD 3+ (Negative); EDUACOLOR1 Yellow; EDUAGLUCOSE Negative (Negative); EDUAKETONE Negative (Negative); EDUALEUKO 2+ (Negative); EDUANITRATE Negative (Negative); EDUAPROTEIN Negative (Negative); EDUASPGRAVITY 1.005; EDUAUROBILI 0.2
== END 2024-09-30 10:56 | disposition home or self-care (01) ==
PROVIDERS: Emergency Provider Nurse Practitioner; PCP Internal Medicine
DX: N39.0 Urinary tract infection, site not specified (principal); I25.10 Atherosclerotic heart disease of native coronary artery without angina pectoris; E03.9 Hypothyroidism, unspecified; E78.5 Hyperlipidemia, unspecified
CPT/HCPCS: 81003; 87086; 99213; G0463

== ENCOUNTER 2024-10-05 11:35 | Emergency (ER) | payer MEDICARE, SELFPAY ==
--- NOTE | ~2024-10-05 | US_ITS ---
EXAM: Focused ultrasound examination of the soft tissues of the left popliteal fossa HISTORY: popliteal mass, poss thompson cyst TECHNIQUE: Sonographic evaluation of the soft tissues of the left popliteal fossa were performed asse ssing grayscale appearance and color Doppler flow. COMPARISON: None. FINDINGS: Sonographic evaluation of the soft tissues of the left popliteal fossa demonstrate a well-defined, av ascular, anechoic fluid collection measuring 46 x 17 x 29 mm, consistent with a (likely) Thompson's cyst . IMPRESSION: Thompson's cyst within the left popliteal fossa, as detailed above Reviewed, dictated and finalized at location A.
--- NOTE | ~2024-10-05 | US_ITS ---
EXAMINATION: US venous doppler [facility] DATE: 10/05/2024 13:26 INDICATION: Left lower extremity swelling TECHNIQUE: Grayscale ultrasound images without and with compression and Doppler ultrasound images of the left lower extremity veins were obtained. COMPARISON: None. FINDINGS: The visualized portions of left common femoral vein, profunda (deep) femoral vein, femoral vein, popl iteal vein, peroneal veins, posterior tibial veins, and greater saphenous vein outflow are patent. IMPRESSION: 1. No deep venous thrombosis. Reviewed, dictated and finalized at location A.
--- OUTSIDE RECORDS SUMMARY | 2024-10-05 11:39 | XMS_ITS | Encounter Summary ---
Author Organization [facility] Address [address] [place] [address] Phone Care Team Providers Care Jigger Machine Operator Name Role Phone Gerry Jhonston DO Primary Care Provider [phone] Salvador Chirinos MD Unavailable [phone] Encounter Details Date Type Department Care Team (Latest Contact Info) Description 01/29/2017 Orders Only [facility] CONVERSION Scanning, Provider Social History Tobacco Use Types Packs/Day Years Used Date Smoking Tobacco: Never Comments Unknown Sex and Gender Information Value Date Recorded Sex Assigned at Not on file 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
--- OUTSIDE RECORDS SUMMARY | 2024-10-05 11:39 | XMS_ITS | Encounter Summary ---
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
--- OUTSIDE RECORDS SUMMARY | 2024-10-05 11:39 | XMS_ITS | Clinical Summary ---
Author Organization [facility] Address [address] [place] [address] Care Team Providers Care Community Association Manager Name Role Phone Isabelnguyenkelsi Gerry Mariann DO Primary Care Provider [phone] Source Comments [facility],non-[facility] Affiliates and Associated Physician Practices is amultiple site organization consisting of ambulatory clinics and hospital sitesin [place], [place], [place] and [place]. This disclosure is being madepursuant to the Care Everywhere program and may not contain all information available regarding this patient. Last updated 17.[facility] [place] Allergies Active Allergy Reactions Criticality Noted Date Comments Solifenacin Headache,Shortness o f Breath High 05/27/2021 Sulfa Drugs Itching 09/21/2017 And vaginal swelling Medications * Be aware that medications may not be up to date on this document. Alwaysverify current medications with the patient. 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 Gender Identity Female 07/04/2021 8:04 AM CDT [...] 1:40 PM CDT Height 160 cm (5' 3) 08/21/2023 1:40 PM CDT Body Mass Index 26.39 08/21/2023 1:40 PM CDT Plan of Treatment Upcoming Encounters Date Type Department Care Team (Late st Contact Info) Description 10/18/2024 3:40 PM CDT Office Visit [facility] [address], [facility] [address] [place] [address] Kimani Rodriguez Che, MD [address] [facility] [address] [place] [address] Health Maintenance Due Date Last Done Comments BONE DENSITY TESTING 1950 HEPATITIS C SCREENING 01/03/1966 DTAP/TDAP/TD VACCINES (1 - Tdap) 01/07/1967 PNEUMOCOCCAL VACCINE 50+ (2 of 2 - PCV20 or PCV21) 08/26/2019 08/25/2018 Respiratory Syncytial Virus (RSV) Vaccine Pt: or over 60 yrs (1 - 1-dose 75+ series) 01/07/2023 COVID-19 VACCINE ( season) 2023 02/14/2022, 08/13/2021, 01/30/2021, Additional history exists DEPRESSION SCREENING 04/06/2024 08/21/2023 MEDICARE AWV CALENDAR YEAR 2024 INFLUENZA VACCINE (Season Ended) 2024 12/30/2021, 12/24/2020, 12/29/2019, Additional history exists ZOSTER VACCINE Completed 11/12/2018, 09/13/2018 HEPATITIS B VACCINE Aged Out No longe r eligible based on patient's age to complete this topic HIB VACCINE Aged Out No longer eligi ble based on patient's age to complete this topic HPV VACCINE Aged Out No longer eligi ble based on patient's age to complete this topic MENINGOCOCCAL (Group B) VACCINE SHARED DECISION-MAKING Aged Out No longer eligible based on patient's age to complete this topic MENINGOCOCCAL GROUPS A/C/Y/W VACCINE Aged Out No longer eligible based on patient's age to complete this topic Insurance AETNA AETNA AETNA MEDICARE ADV Care Teams Community Association Manager Relationship Specialty Start Date End Date Gerry Johnston DO PCP - General 08/28/17
--- OUTSIDE RECORDS SUMMARY | 2024-10-05 11:39 | XMS_ITS | Encounter Summary ---
Author Organization [facility] Address [address] [place] [address] Care Team Providers Care Stitching Machine Setter Name Role Phone Gerry Johnston DO Primary Care Provider + [phone] Gerry Johnston DO Primary Care Provider + [phone] Salvador Chirinos MD Unavailable [phone] Encounter Details Date Type Department Care Team (Late st Contact Info) Description 04/09/2016 Orders Only [facility] Provider, MD Barry [address] [place] [address] Social History Tobacco Use Types Packs/Day Years Used Date Smoking Tobacco: Never Assessed Comments Unknown Sex and Gender Information Value Date Recorded Sex Assigned at Not on file 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
--- OUTSIDE RECORDS SUMMARY | 2024-10-05 11:39 | XMS_ITS | Clinical Summary ---
Author Organization [facility] Address [address] [place] [address] Care Team Providers Care Marketing Analytics Specialist Name Role Phone Gerry Johnston DO Primary Care Provider +1- [phone] Salvador Chirinos MD Unavailable Allergies Active Allergy Reactions Criticality Noted Date Comments Solifenacin Headache,Shortness o f breath High 05/27/2021 Sulfa (Sulfonamide Antibiotics) Rash,Itching Medium 02/23/2012 Medications aspirin 325 mg tablet daily. 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 Abdominal pain 02/23/2012 Immunizations Immunization Administration Dates Next Due ZOSTER Recombinant 11/12/2018,09/13/2018 [...] on file Legal Sex Female 9:55 AM BUDGET TECHNICIAN Gender Identity Not on file Sexual Orientation Not on file Obstetrics History Para Term AB IAB SAB Ectopic Multiple Livin g Live Births 1 1 1 Date Outcome GA Total Labor Labor/2nd/3rd Weight Sex Type Anes PTL Maribel A1 A5 Name Clin Term Last Filed Vital Signs Vital Sign Reading Time Taken Comments Blood Pressure 128/65 02/08/2024 8:33 AM BUDGET TECHNICIAN Pulse 61 02/08/2024 8:33 AM BUDGET TECHNICIAN Temperature 36.7 C (98 F) 12/13/2021 12:29 PM CDT Respiratory Rate 18 12/13/2021 2:13 PM CDT Oxygen Saturation 100% 02/08/2024 8:33 AM BUDGET TECHNICIAN Inhaled Oxygen Concentration - - Weight 68 kg (150 lb) 02/08/2024 8:33 AM BUDGET TECHNICIAN Height 157.5 cm (5' 2) 04/01/2024 3:01 PM BUDGET TECHNICIAN Body Mass Index 26.57 02/08/2024 8:33 AM BUDGET TECHNICIAN Plan of Treatment Health Maintenance Due Date Last Done Comments Depression Screening 1950 Hepatitis C Screening 1950 Osteoporosis Screening-Bone Density Scan 1950 DTaP/Tdap/Td Vaccine (1 - Tdap) 01/07/1959 Hepatitis B Screening 01/07/1966 Well Visit 65+ 01/07/2013 Fall Risk Assessment 12/13/2022 12/13/2021 Influenza Vaccine (Season Ended) 2024 01/03/2019, 12/28/2017, 01/07/2017, Additional history exists Pneumococcal vaccine 65+ Completed 08/25/2018, 11/05 Zoster Vaccine Completed 11/12/2018, 09/04, 03/07/2015 Breast Cancer Screening-Mammogram Discontinued 04/01/2024, 02/23/2023, 02/21/2022, Additional history exists Procedures Procedure Name Priority Date/Time Associated Diagnosis Comments SCREENING MAMMOGRAM BILATERAL [place] Schedule Routine, Read Routine (OP Routine) 04/01/2024 3:08 PM BUDGET TECHNICIAN Screening mammogram, encounter for from Last 3 Months or Most Recently Relevant to Health Maintenance Results * Screening Mammogram Bilateral [place] (04/01/2024 3:08 PM BUDGET TECHNICIAN) Anatomical Region Laterality Modality Breast Bilateral Mammography 04/01/2024 3:31 PM BUDGET TECHNICIAN Impressions 04/01/2024 3:31 PM BUDGET TECHNICIAN There is no mammographic evidence of malignancy. A 1 year screening mammogram is recommended. BI-RADS: 1 - Negative. The patient has been or will be contacted. The patient will be entered into a reminder system with a target due date of 1 year for her next mammogram. Electronically signed by: Joseph Mckoy M.D. Narrative 04/01/2024 3:31 PM BUDGET TECHNICIAN EXAMINATION: SCREENING MAMMOGRAM BILATERAL [place] ORDERING [...] Fi nal Result from Last 3 Months or Most Recently Relevant to Health Maintenance Insurance [facility] MEDICARE [facility] MEDICARE ADVANTAGE [facility] Address: [address] [place] [address] Advance Directives For more information, please contact: [phone] * Full Code (Latest Code Status on File) Date Activated Date Inactivated Comments 12/13/2021 12:29 PM 12/13/2021 7:10 PM Care Teams Marketing Analytics Specialist Relationship Specialty Start Date End Date Gerry Johnston DO PCP - General 06/10/16 Salvador Chirinos MD [address] [place] [address] DR ABBY Wa[address] [address] Consulting Physician Obstetrics and Gynecology 02/19/23
--- OUTSIDE RECORDS SUMMARY | 2024-10-05 11:39 | XMS_ITS | Referral Summary ---
Author Organization [facility] Address [address] [place] [address] Care Team Providers Care Perinatology Physician Name Role Phone Gerry Johnston DO Primary Care Provider +1- [phone] Salvador Chirinos MD Unavailable [phone] Allergies Active Allergy Reactions Criticality Noted Date Comments Solifenacin Headache,Shortness o f breath High 05/27/2021 Sulfa (Sulfonamide Antibiotics) Rash,Itching Medium 02/23/2012 Medications aspirin 325 mg tablet daily. Active rosuvastatin (CRESTOR) 20 mg tablet Take 1 tablet (20 mg total) by mouth daily 2 Active levothyroxine (SYNTHROID, LEVOTHROID) 75 mcg tablet Take 1 tablet (75 mcg total) by mouth pipe washer before breakfast 6 Active cyanocobalamin (Vitamin B-12) [...] on file Legal Sex Female 9:55 AM MILLER HELPER Gender Identity Not on file Sexual Orientation Not on file Last Filed Vital Signs Vital Sign Reading Time Taken Comments Blood Pressure 128/65 02/08/2024 8:33 AM MILLER HELPER Pulse 61 02/08/2024 8:33 AM MILLER HELPER Temperature 36.7 C (98 F) 12/13/2021 12:29 PM CDT Respiratory Rate 18 12/13/2021 2:13 PM CDT Oxygen Saturation 100% 02/08/2024 8:33 AM MILLER HELPER Inhaled Oxygen Concentration - - Weight 68 kg (150 lb) 02/08/2024 8:33 AM MILLER HELPER Height 157.5 cm (5' 2) 04/01/2024 3:01 PM MILLER HELPER Body Mass Index 26.57 02/08/2024 8:33 AM MILLER HELPER Plan of Treatment Not on file Procedures Procedure Name Priority Date/Time Associated Diagnosis Comments SCREENING MAMMOGRAM BILATERAL [place] Schedule Routine, Read Routine (OP Routine) 04/01/2024 3:08 PM MILLER HELPER Screening mammogram, encounter for from Last 3 Months or Most Recently Relevant to Health Maintenance Results * Screening Mammogram Bilateral [place] (04/01/2024 3:08 PM MILLER HELPER) Anatomical Region Laterality Modality Breast Bilateral Mammography 04/01/2024 3:31 PM MILLER HELPER Impressions 04/01/2024 3:31 PM MILLER HELPER There is no mammographic evidence of malignancy. A 1 year screening mammogram is recommended. BI-RADS: 1 - Negative. The patient has been or will be contacted. The patient will be entered into a reminder system with a target due date of 1 year for her next mammogram. Electronically signed by: Joseph Mckoy M.D. Narrative 04/01/2024 3:31 PM MILLER HELPER EXAMINATION: SCREENING MAMMOGRAM BILATERAL [place] ORDERING [...] Most Recently Relevant to Health Maintenance Insurance [employer] MEDICARE [facility] MEDICARE Address: [facility] [id number] [place] [address] [employer] MEDICARE ADVANTAGE [employer] MEDICARE Advance Directives For more information, please contact: [phone] * Full Code (Latest Code Status on File) Date Activated Date Inactivated Comments 12/13/2021 12:29 PM 12/13/2021 7:10 PM Care Teams Perinatology Physician Relationship Specialty Start Date End Date Gerry Johnston DO PCP - General 06/10/16 Salvador Chirinos MD [address] [place] [address] [address] MORA B [facility] [address] [place] [address] Consulting Physician Obstetrics and Gynecology 02/19/23
[2024-10-05 11:45] VITALS: BP 178/60; PULSE 69; RESP 18; TEMP 36.6; O2SAT 99
--- OUTSIDE RECORDS SUMMARY | 2024-10-05 12:09 | XMS_ITS | Referral Summary ---
Author Organization [facility] Address [address] [place] [address] Care Team Providers Care Drapery And Upholstery Measurer Name Role Phone Gerry Johnston DO Primary Care Provider [phone]- [phone] Salvador Chirinos MD Unavailable [phone] Allergies Active Allergy Reactions Criticality Noted Date Comments Solifenacin Headache,Shortness o f breath High 05/27/2021 Sulfa (Sulfonamide Antibiotics) Rash,Itching Medium 02/23/2012 Medications aspirin 325 mg tablet daily. Active rosuvastatin (CRESTOR) 20 mg tablet Take 1 tablet (20 mg total) by mouth daily 2 Active levothyroxine (SYNTHROID, LEVOTHROID) 75 mcg tablet Take 1 tablet (75 mcg total) by mouth cruise guide before breakfast 6 Active cyanocobalamin (Vitamin B-12) [...] on file Legal Sex Female 9:55 AM WEAVER NARROW FABRICS Gender Identity Not on file Sexual Orientation Not on file Last Filed Vital Signs Vital Sign Reading Time Taken Comments Blood Pressure 128/65 02/08/2024 8:33 AM WEAVER NARROW FABRICS Pulse 61 02/08/2024 8:33 AM WEAVER NARROW FABRICS Temperature 36.7 C (98 F) 12/13/2021 12:29 PM CDT Respiratory Rate 18 12/13/2021 2:13 PM CDT Oxygen Saturation 100% 02/08/2024 8:33 AM WEAVER NARROW FABRICS Inhaled Oxygen Concentration - - Weight 68 kg (150 lb) 02/08/2024 8:33 AM WEAVER NARROW FABRICS Height 157.5 cm (5' 2) 04/01/2024 3:01 PM WEAVER NARROW FABRICS Body Mass Index 26.57 02/08/2024 8:33 AM WEAVER NARROW FABRICS Plan of Treatment Not on file Procedures Procedure Name Priority Date/Time Associated Diagnosis Comments SCREENING MAMMOGRAM BILATERAL [place] Schedule Routine, Read Routine (OP Routine) 04/01/2024 3:08 PM WEAVER NARROW FABRICS Screening mammogram, encounter for from Last 3 Months or Most Recently Relevant to Health Maintenance Results * Screening Mammogram Bilateral [place] (04/01/2024 3:08 PM WEAVER NARROW FABRICS) Anatomical Region Laterality Modality Breast Bilateral Mammography 04/01/2024 3:31 PM WEAVER NARROW FABRICS Impressions 04/01/2024 3:31 PM WEAVER NARROW FABRICS There is no mammographic evidence of malignancy. A 1 year screening mammogram is recommended. BI-RADS: 1 - Negative. The patient has been or will be contacted. The patient will be entered into a reminder system with a target due date of 1 year for her next mammogram. Electronically signed by: Joseph Mckoy M.D. Narrative 04/01/2024 3:31 PM WEAVER NARROW FABRICS EXAMINATION: SCREENING MAMMOGRAM BILATERAL [place] ORDERING [...] Relevant to Health Maintenance Insurance [employer] MEDICARE [employer] MEDICARE ADVANTAGE [employer] MEDICARE Advance Directives For more information, please contact: [phone] * Full Code (Latest Code Status on File) Date Activated Date Inactivated Comments 12/13/2021 12:29 PM 12/13/2021 7:10 PM Care Teams Drapery And Upholstery Measurer Relationship Specialty Start Date End Date Gerry Johnston DO PCP - General 06/10/16 Salvador Chirinos MD [address] [place] [address] [address] MORA B [facility] [address] [place] [address] Consulting Physician Obstetrics and Gynecology 02/19/23
--- OUTSIDE RECORDS SUMMARY | 2024-10-05 12:09 | XMS_ITS | Encounter Summary ---
Author Organization [facility] Address [address] [place] [address] Care Team Providers Care Wood Milling Machine Tender Name Role Phone Gerry Johnston DO Primary Care Provider + [phone] Salvador Chirinos MD Unavailable [phone] Reason for Visit * Reason Onset Date Comments Scheduling Appointments 01/22/2021 confirmi ng mamm appt Encounter Details Date Type Department Care Team (Late st Contact Info) Description 01/22/2021 Telephone [facility] [address] [place] [address] Alexus Burr RT Scheduling Appointments (confirming mamm [...] on file Legal Sex Female 9:55 AM SLIDING JOINT MAKER Gender Identity Not on file Sexual Orientation Not on file documented as of this encounter Plan of Treatment Not on file documented as of this encounter Visit Diagnoses Not on filedocumented in this encounter Care Teams Wood Milling Machine Tender Relationship Specialty Start Date End Date Gerry Johnston DO PCP - General 06/10/16 Salvador Chirinos MD [address] [facility] [place] [address] Consulting Physician Obstetrics and Gynecology 02/19/23 documented as of this encounter
--- OUTSIDE RECORDS SUMMARY | 2024-10-05 12:09 | XMS_ITS | Clinical Summary ---
Author Organization [facility] Address [address] [place] [address] Care Team Providers Care Machine I Coremaker Name Role Phone Isabelnguyenkelsi Gerry Mariann DO Primary Care Provider [phone] Source Comments [facility] Affiliates and Associated Physician Practices is amultiple site organization consisting of ambulatory clinics and hospital sitesin [place], [place], [place] and [place]. This disclosure is being madepursuant to the Care Everywhere program and may not contain all information available regarding this patient. Last updated 17.[facility] [employer] Allergies Active Allergy Reactions Criticality Noted Date [...] on file Legal Sex Female 6:14 AM CERAMIC PLATER Gender Identity Female 07/04/2021 8:04 AM CDT [...] CDT Office Visit [facility] [address], [facility] [address] [place] [address] Kimani Rodriguez Che, MD [address] [facility] [address] [place] [address] Health Maintenance Due Date Last [...] to complete this topic [place] [address] A[employer]NA MEDICARE ADV Care Teams Machine I Coremaker Relationship Specialty Start Date End Date Gerry Johnston DO PCP - General 08/28/17
--- OUTSIDE RECORDS SUMMARY | 2024-10-05 12:09 | XMS_ITS | Encounter Summary ---
Author Organization [facility] Address [address] [facility] [address] [place] [address] Care Team Providers Care Telegraph And Teletype Operator Name Role Phone Gerry Johnston DO Primary Care Provider + [phone] Gerry Johnston DO Primary Care Provider + [phone] Salvador Chirinos MD Unavailable [phone] Encounter Details Date Type Department Care Team (Late st Contact Info) Description 04/09/2016 Orders Only [facility] Provider, MD Barry [address] [place] [id number] Social History Tobacco Use Types Packs/Day Years Used Date Smoking Tobacco: Never Assessed Comments Unknown Sex and Gender Information Value Date Recorded Sex Assigned at Not on file Legal Sex Female 9:55 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
--- OUTSIDE RECORDS SUMMARY | 2024-10-05 12:09 | XMS_ITS | Clinical Summary ---
Author Organization [facility] Address [address] [place] [address] Care Team Providers Care Line Maintenance Technician Name Role Phone Gerry Johnston DO Primary Care Provider [phone]- [phone] Salvador Chirinos MD Unavailable Allergies Active Allergy Reactions Criticality Noted Date Comments Solifenacin Headache,Shortness o f breath High 05/27/2021 Sulfa (Sulfonamide Antibiotics) Rash,Itching Medium 02/23/2012 Medications aspirin 325 mg tablet daily. Active rosuvastatin (CRESTOR) 20 mg tablet Take 1 tablet (20 mg total) by mouth daily 2 Active levothyroxine (SYNTHROID, LEVOTHROID) 75 mcg tablet Take 1 tablet (75 mcg total) by mouth gunite mixer before breakfast 6 Active cyanocobalamin (Vitamin B-12) [...] on file Legal Sex Female 9:55 AM PACKING HOUSE SUPERVISOR Gender Identity Not on file Sexual Orientation Not on file Obstetrics History Para Term AB IAB SAB Ectopic Multiple Livin g Live Births 1 1 1 Date Outcome GA Total Labor Labor/2nd/3rd Weight Sex Type Anes PTL Maribel A1 A5 Name Clin Term Last Filed Vital Signs Vital Sign Reading Time Taken Comments Blood Pressure 128/65 02/08/2024 8:33 AM PACKING HOUSE SUPERVISOR Pulse 61 02/08/2024 8:33 AM PACKING HOUSE SUPERVISOR Temperature 36.7 C (98 F) 12/13/2021 12:29 PM CDT Respiratory Rate 18 12/13/2021 2:13 PM CDT Oxygen Saturation 100% 02/08/2024 8:33 AM PACKING HOUSE SUPERVISOR Inhaled Oxygen Concentration - - Weight 68 kg (150 lb) 02/08/2024 8:33 AM PACKING HOUSE SUPERVISOR Height 157.5 cm (5' 2) 04/01/2024 3:01 PM PACKING HOUSE SUPERVISOR Body Mass Index 26.57 02/08/2024 8:33 AM PACKING HOUSE SUPERVISOR Plan of Treatment Health Maintenance Due Date [...] Read Routine (OP Routine) 04/01/2024 3:08 PM PACKING HOUSE SUPERVISOR Screening mammogram, encounter for from Last 3 Months or Most Recently Relevant to Health Maintenance Results * Screening Mammogram Bilateral [place] (04/01/2024 3:08 PM PACKING HOUSE SUPERVISOR) Anatomical Region Laterality Modality Breast Bilateral Mammography 04/01/2024 3:31 PM PACKING HOUSE SUPERVISOR Impressions 04/01/2024 3:31 PM PACKING HOUSE SUPERVISOR There is no mammographic evidence of malignancy. A 1 year screening mammogram is recommended. BI-RADS: 1 - Negative. The patient has been or will be contacted. The patient will be entered into a reminder system with a target due date of 1 year for her next mammogram. Electronically signed by: Joseph Mckoy M.D. Narrative 04/01/2024 3:31 PM PACKING HOUSE SUPERVISOR EXAMINATION: SCREENING MAMMOGRAM BILATERAL [place] ORDERING [...] Most Recently Relevant to Health Maintenance Insurance [facility] MEDICARE [facility] MEDIC[facility] Address: [facility] [id number] [place] [id number] [facility] MEDICARE ADVANTAGE [facility] MEDICARE Advance Directives For more information, please contact: [phone] * Full Code (Latest Code Status on File) Date Activated Date Inactivated Comments 12/13/2021 12:29 PM 12/13/2021 7:10 PM Care Teams Line Maintenance Technician Relationship Specialty Start Date End Date Gerry Johnston DO PCP - General 06/10/16 Salvador Chirinos MD [address] [place] [address] [address] ABBY Wa[address] [address] Consulting Physician Obstetrics and Gynecology 02/19/23
--- OUTSIDE RECORDS SUMMARY | 2024-10-05 12:09 | XMS_ITS | Encounter Summary ---
Author Organization [facility] Address [address] [place] [address] Phone Care Team Providers Care Director Of Product Design Name Role Phone Gerry Johnston DO Primary Care Provider +1- [phone] Salvador Chirinos MD Unavailable [phone] Encounter Details Date Type Department Care Team (Latest Contact Info) Description 01/29/2017 Orders Only [facility] CONVERSION Scanning, Provider Social History Tobacco Use Types Packs/Day Years Used Date Smoking Tobacco: Never Comments Unknown Sex and Gender Information Value Date Recorded Sex Assigned at Not on file Legal Sex Female 9:55 AM SHEAR OPERATOR HELPER Gender Identity Not on file Sexual [...] on filedocumented in this encounter Care Teams Director Of Product Design Relationship Specialty Start Date End Date Gerry Johnston DO PCP - General 06/10/16 Salvador Chirinos MD [address] [facility] [place] [address] Consulting Physician Obstetrics and Gynecology 02/19/23 documented as of this encounter
--- NOTE | 2024-10-05 12:43 | ED_ITS ---
HPI - Extremity Problem General Chief complaint: Extremity Problem,Nontraumatic Stated complaint: sack behind my knee Time Seen by Provider: 10/05/24 12:01 History of Present Illness HPI Narrative: 74-year-old female presenting to the emergency department for evaluation of asymmetric legs. She knows that since Thursday she has had some swelling behind her left knee and thinks it could potentially be a Thompson cyst but is also work about DVT. His a history of blood clots in her neck and takes aspirin but no other anticoagulants. No trauma or injury. She states that she has had some stiffness in her left leg whenever she bends it secondary to the swelling. No traumatic injuries, no history of arthritis or knee surgeries in the past. No paresthesias or numbness, no discoloration legs. No fever chills. No chest pain difficulty breathing. Related Data Home Medications ?Medication ?Instructions ?Recorded ?Confirmed ?Last Taken ?Type aspirin 325 mg tablet 325 mg PO DAILY 02/09/19 09/13/24 08/13/22 History cranberry fruit 400 mg capsule 400 mg PO DAILY 02/09/19 09/13/24 08/16/22 History mecobalamin (vitamin B12) 1,000 1,000 mcg sublingual DAILY 02/09/19 09/13/24 08/16/22 History mcg disintegrating tablet,sublingual cholecalciferol (vitamin D3) 50 4,000 unit PO DAILY 11/11/21 09/13/24 08/16/22 History mcg (2,000 unit) tablet vitamin B complex 1 cap PO DAILY 10/27/23 09/13/24 Unknown History Allergies Allergy/AdvReac Type Severity Reaction Status Date / Time Sulfa (Sulfonamide Allergy Unknown Rash Verified 10/05/24 11:44 Antibiotics) alendronate sodium (From AdvReac Stomach Verified 10/05/24 11:44 Fosamax) issues ibandronate sodium (From AdvReac Stomach Verified 10/05/24 11:44 Boniva) issues solifenacin AdvReac Headache Verified 10/05/24 11:44 and weakness Review of Systems Review of Systems: As reviewed above in HPI [facility] Past Medical History Medical History Bilateral lower extremity edema Hospital discharge follow-up COVID-19 Atherosclerotic heart disease of enterprise coronary artery without angina pectoris Unspecified atherosclerosis Headache Essential tremor Carotid artery occlusion Achalasia Chicken pox Peptic ulcer disease Osteoporosis Hypothyroid Hyperlipidemia Surgical History Surgical History Status post surgical removal of malignant neoplasm of skin H/O rotator cuff surgery H/O cataract removal with insertion of prosthetic lens History of rectal surgery Hx of vaginal surgery History of hip surgery H/O breast surgery H/O: hysterectomy (~04/1982) History of thyroidectomy (~04/1984) Hx of cholecystectomy (~04/2007) Family History Family History Mother Diabetes mellitus Cerebrovascular accident, Onset Age: 94 Father Cerebrovascular accident, Onset Age: 89 Family history of Parkinson's disease Family history of Alzheimer's disease, Onset Age: 89 Sibling Cerebrovascular accident Other Family history of glaucoma Family history of thyroid disease Hypertension Social History Social History Smoking status: Never smoker Second hand tobacco smoke exposure: No Alcohol intake: current Alcohol use details: 2/MONTH Substance use: never Substance use type: does not use Do You Feel Safe in your Home?: Yes Lack of Transportation: No Lack of Food: Never True Current Housing: I Have Housing Concerned About Future Housing: No Difficulty Paying Gas/Electric Bills: No Difficulty Paying for Meds: No Currently Unemployed: No Education: Master's Degree or Higher Difficulty w/ Childcare or Family Care: No Living arrangements: with family Spiritual care concerns: No Exam Narrative: GENERAL: [Well-appearing, well-nourished, and in no acute distress.] HEAD: [Normocephalic, atraumatic.] EYES: [PERRLA and EOMI.] ENT: Nares clear, no rhinorrhea or epistaxis. Mucous membranes moist. NECK: Supple. CHEST: [Clear to auscultation. No respiratory distress.] HEART: [Regular rate and rhythm]. No murmur heard. [Normal peripheral pulses.] ABDOMEN: [Soft, nondistended], [nontender], [No rigidity or guarding] EXTREMITIES: Asymmetric bilateral lower extremities left greater than right swelling compared to the knees. Posterior popliteal area in the left side has a area of fluctuance and potentially cystic structure consistent with Thompson cyst versus less likely abscess formation. No overlying skin changes such as redness or discoloration. Distal neuro vasculature is intact. No restricted range of motion and she is ambulatory without difficulty. SKIN: Warm, dry, no rash. NEURO: [No focal deficits]. Alert and oriented [x3.] PSYCH: [Normal mood and affect.] Course Vital Signs Vital signs: Vital Signs Temperature 36.6 C 10/05/24 11:45 Pulse Rate 69 10/05/24 11:45 Respiratory Rate 18 10/05/24 11:45 Blood Pressure 178/60 H 10/05/24 11:45 Pulse Oximetry 99 10/05/24 11:45 Oxygen Delivery Room Air 10/05/24 11:45 Temperature 36.6 C 10/05/24 11:45 Pulse Rate 69 10/05/24 11:45 Respiratory Rate 18 10/05/24 11:45 Blood Pressure 178/60 H 10/05/24 11:45 Pulse Oximetry 99 10/05/24 11:45 Oxygen Delivery Room Air 10/05/24 11:45 MDM - Extremity (Nontraumatic) MDM Narrative Medical decision making narrative: 74-year-old female presenting to the emergency department for evaluation of a symmetric legs. She knows that since Thursday she has had some swelling behind her left knee and thinks it could potentially be a Thompson cyst but is also work about DVT. His a history of blood clots in her neck and takes aspirin but no other anticoagulants. No trauma or injury. She states that she has had some stiffness in her left leg whenever she bends it secondary to the swelling. No traumatic injuries, no history of arthritis or knee surgeries in the past. No paresthesias or numbness, no discoloration legs. No fever chills. No chest pain difficulty breathing. Asymmetric bilateral lower extremities left greater than right swelling compared to the knees. Posterior popliteal area in the left side has a area of fluctuance and potentially cystic structure consistent with Thompson cyst versus less likely abscess formation. No overlying skin changes such as redness or discoloration. Distal neuro vasculature is intact. No restricted range of motion and she is ambulatory without difficulty. Differential diagnosis includes Thompson cyst, popliteal fossa mass, lipoma, less likely abscess or DVT. Ultrasound soft tissue and DVT ultrasound of the left lower extremity ordered. Patient is hemodynamically stable with unremarkable vital signs aside from some stable asymptomatic hypertension. 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 DVT study was negative. Discussed treatment options going forward including conservative management with anti-inflammatories which have already helped her last night she states that the swelling came down slightly with ibuprofen. Compression with an Richi bandage can also help but she will be referred to Orthopedic surgery for re-evaluation on outpatient basis if this is not treated conservatively as excision might be an option. Patient comfortable with plan and safely discharged. 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 Take Tylenol or ibuprofen for aches and pains and you can have an Richi bandage applied over top for some swelling control. This is a benign finding and you can safely go home at this time with outpatient follow-up with Orthopedic surgery if this is a recurrent issue as they might be able to do a drainage or excision. Return with any emergent concerns. DVT study was negative. Patient Language: South African Prescriptions: No Action ciprofloxacin HCl 500 mg tablet 500 mg PO Q12H 7 Days Qty: 14 0RF aspirin 325 mg tablet 325 mg PO DAILY mecobalamin (vitamin B12) 1,000 mcg tablet,disintegrating 1,000 mcg SUBLINGUAL DAILY cranberry fruit 400 mg capsule 400 mg PO DAILY vitamin B complex Capsule 1 cap PO DAILY cholecalciferol (vitamin D3) 50 mcg (2,000 unit) tablet 4,000 unit PO DAILY levothyroxine [Synthroid] 75 mcg tablet 75 mcg PO DAILY Qty: 90 3RF liothyronine 5 mcg tablet See Rx Instructions .ROUTE .COMPLEX Qty: 90 3RF Dose Instruction: TAKE 1 TABLET BY MOUTH DAILY Rx Instructions: TAKE 1 TABLET BY MOUTH DAILY omeprazole 20 mg capsule,delayed release(DR/EC) See Rx Instructions .ROUTE BID Qty: 180 3RF Dose Instruction: TAKE 1 CAPSULE BY MOUTH TWICE DAILY Rx Instructions: TAKE 1 CAPSULE BY MOUTH TWICE DAILY twice a day; rosuvastatin 20 mg tablet 20 mg PO DAILY Qty: 90 3RF Follow-up/Referrals: Kiran Avila MD [Physician] - 1 Week (Bakers cyst) Gerry Johnston, DO [Primary Care Provider] - Time of Disposition: 13:57
[2024-10-05 14:11] VITALS: BP 149/54; PULSE 63; RESP 16; O2SAT 100
== END 2024-10-05 14:11 | disposition home or self-care (01) ==
PROVIDERS: Emergency Provider Student in an Organized Health Care Education/Training Program; PCP Internal Medicine
DX: M71.22 Synovial cyst of popliteal space [Baker], left knee (principal); I25.10 Atherosclerotic heart disease of native coronary artery without angina pectoris; I70.90 Unspecified atherosclerosis; E03.9 Hypothyroidism, unspecified; E78.5 Hyperlipidemia, unspecified; M81.0 Age-related osteoporosis without current pathological fracture; Z85.828 Personal history of other malignant neoplasm of skin; Z87.11 Personal history of peptic ulcer disease; Z86.16 Personal history of COVID-19; Z98.49 Cataract extraction status, unspecified eye; Z96.1 Presence of intraocular lens; Z90.710 Acquired absence of both cervix and uterus; Z90.49 Acquired absence of other specified parts of digestive tract; Z79.82 Long term (current) use of aspirin; Z79.899 Other long term (current) drug therapy
CPT/HCPCS: 76882; 93971; 99284

== ENCOUNTER 2024-12-07 07:58 | Outpatient (CLI) | payer MEDICARE, SELFPAY ==
--- OUTSIDE RECORDS SUMMARY | 2024-12-07 08:03 | XMS_ITS | Encounter Summary ---
Author Organization [facility] Healthcare Address [address] [place] [id number] Care Team Providers Care Door Opener Name Role Phone Gerry Johnston DO Primary Care Provider + [phone] Salvador Chirinos MD Unavailable [phone] Reason for Visit * Reason Onset Date Comments Scheduling Appointments 01/22/2021 confirmi ng mamm appt Encounter Details Date Type Department Care Team (Late st Contact Info) Description 01/22/2021 Telephone [facility] [address] [place] [address] Alexus Burr RT Scheduling Appointments (confirming mamm [...] on file Legal 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
--- OUTSIDE RECORDS SUMMARY | 2024-12-07 08:03 | XMS_ITS | Clinical Summary ---
Author Organization [facility] Address [address] [place] [address] Care Team Providers Care Lens Mold Setter Name Role Phone Isabelsenait Gerry Mariann DO Primary Care Provider [phone] Source Comments [facility],non-[facility] Affiliates and Associated Physician Practices is amultiple site organization consisting of ambulatory clinics and hospital sitesin [place], [place], [place] and [place]. This disclosure is being madepursuant to the Care Everywhere program and may not contain all information available regarding this patient. Last updated 17.[facility] [employer] Allergies Active Allergy Reactions Criticality Noted Date [...] levothyroxine (SYNTHROID) 75 MCG tablet 08/03/2017 Active liothyronine (CYTOMEL) 5 MCG tablet Take 1 (one) tablet by mouth once daily Active omeprazole (PriLOSEC) 20 MG capsule 05/14/2022 Active fluconazole (Diflucan) 200 MG tablet Every other day x 3 doses 3 tablet 1 11/01/2024 Active cefdinir (Omnicef) 300 MG capsule Take 1 (one) capsule by mouth every 12 hours for 7 days 14 capsule 11/04/2024 11/12/19 Active Problems Problem Noted Date Diagnosed Date Bruit of left carotid artery 07/14/2022 Nocturia 12/22/2017 Urge incontinence 12/22/2017 Recurrent UTI 10/27/2017 Achalasia of esophagus 04/10/2016 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 Hypothyroidism 11/20/2015 Carotid occlusion, left 02/23/2015 Encounters Date Type Department Care Team Description 11/04/2024 Telephone [facility] - ASSOCIATE MATERIAL HANDLER [address], [address] [address] Kimani Rodriguez Che, MD Abnormal Results Follow Up (uti) 11/03/2024 Results Follow-Up [facility] - ASSOCIATE MATERIAL HANDLER [address], [address] [address] Kimani Rodriguez Che, MD 11/01/2024 8:30 AM CDT [facility] ASSOCIATE MATERIAL HANDLER [address], [address] [address] Kimani Rodriguez Che, MD OAB (overactive bladder) (Primary Dx); Nocturia; Dysuria 11/01/2024 Travel 10/14/2024 Travel from Last 3 Months Immunizations Immunization [...] Answered Alcohol Use Standard Drinks/Week Comments Yes 2 (1 standard drink = 0.6 oz pur e alcohol) PHQ-2 Answer Date Recorded Patient Health Questionnaire-2 Score 0 11/01/2024 Comments No Sex and Gender Information Value Date Recorded Sex Assigned at Not on file 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 Gender Identity Female 07/04/2021 8:04 AM CDT Sexual Orientation Choose not to disclose 2021 8:04 AM CDT Last Filed Vital Signs Vital Sign Reading Time Taken Comments Blood Pressure 126/74 11/01/2024 8:11 AM CDT Pulse 84 11/20/2015 1:12 PM CDT Temperature 36.4 C (97.6 F) 08/21/2023 1:40 PM CDT Respiratory Rate 12 11/20/2015 1:09 PM CDT Oxygen Saturation 98% 11/20/2015 1:12 PM CDT Inhaled Oxygen Concentration - - Weight 67.5 kg (148 lb 12.8 oz) 11/01/2024 8:11 AM CDT Height 157.5 cm (5' 2) 11/01/2024 8:11 AM CDT Body Mass Index 27.22 11/01/2024 8:11 AM CDT Plan of Treatment Health Maintenance Due Date Last Done Comments BONE DENSITY TESTING 1950 HEPATITIS C SCREENING 01/03/1966 DTAP/TDAP/TD VACCINES (1 - Tdap) 01/07/1967 PNEUMOCOCCAL VACCINE 50+ (2 of 2 - PCV20 or PCV21) 08/26/2019 08/25/2018 Respiratory Syncytial Virus (RSV) Vaccine Pt: or over 60 yrs (1 - 1-dose 75+ series) 01/07/2023 COVID-19 VACCINE ( season) 2023 02/14/2022, 08/13/2021, 01/30/2021, Additional history exists MEDICARE AWV CALENDAR YEAR 2024 INFLUENZA VACCINE (#1) 2024 2, 12/24/2020, 12/29/2019, Additional history exists ZOSTER VACCINE Completed 11/12/2018, 09/13/2018 DEPRESSION SCREENING Completed 11/01/2024, 08/21/19 24 HEPATITIS B VACCINE Aged Out No longe [...] on patient's age to complete this topic Procedures Procedure Name Priority Date/Time Associated Diagnosis Comments CULTURE URINE COMPREHENSIVE Routine 11/01/2024 8:26 AM CDT OAB (overactive bladder) Nocturia Dysuria URINALYSIS AUTO - POINT OF CARE (AMB) [facility] Routine 11/01/2024 8:22 AM CDT OAB (overactive bladder) Nocturia Dysuria CA INSERT NON-INDWELLING BLADDER Routine 11/01/2024 8:21 AM CDT OAB (overactive bladder) Nocturia Dysuria from Last 3 Months Results * (ABNORMAL) CULTURE URINE COMPREHENSIVE (11/01/2024 8:26 AM CDT) Culture (A) [facility] Comment: CULTURE, URINE, SPECIAL Micro Number: [id number] Test Status: Final Specimen Source: Urine cathet Specimen Quality: Adequate Result: Greater than 100,000 CFU/mL of Klebsiella oxytoca K.oxytoca INT WILLIAM AMOX/CLAVULANATE S <=2 AMP/SULBACTAM S 4 CEFAZOLIN R >=32 1 CEFEPIME S <=0.12 CEFTAZIDIME S <=0.5 CEFTRIAXONE S <=0.25 CIPROFLOXACIN S <=0.06 GENTAMICIN S <=1 IMIPENEM S <=0.25 LEVOFLOXACIN S <=0.12 MEROPENEM S <=0.25 NITROFURANTOIN S 32 PIP/TAZOBACTAM S <=4 TRIMETHOPRIM/SULFA S <=20 S = Susceptible I = Intermediate R = Resistant NS = Not susceptible SDD = Susceptible Dose Dependent * = Not Tested NR = Not Reported NN = See Therapy Comments THERAPY COMMENTS Note 1: For uncomplicated UTI caused by E. coli, K. pneumoniae or P. mirabilis: Cefazolin is susceptible if WILLIAM <32 mcg/mL and predicts susceptible to the oral agents cefaclor, cefdinir, cefpodoxime, cefprozil, cefuroxime, cephalexin and loracarbef. Test Performed at: [id number] [address] CHANDANA CHARLTON MD Microbiology URINE SPECIMEN COLLECTION, CATHETERIZED / Unknown 11/01/2024 8:26 AM CDT 11/02/2024 12:24 AM CDT Kimani Rodriguez MD LAB - MICROBIOLOGY ORDERABLES F inal Result Performing Organization Address [facility]/ZIP Co de Phone Number [address] [address] * (ABNORMAL) URINALYSIS AUTO - POINT OF CARE (AMB) [facility] (11/01/2024 8:22 AM CDT) Glucose UA neg OTHER LAB Bilirubin UA POCT neg OTHER LAB Ketones UA POCT neg OTHER LAB Specific [place] UA 1.005 OTHER LAB Blood Urine POCT neg OTHER LAB pH UA 7.0 OTHER LAB Protein UA neg OTHER LAB Urobilinogen UA 0.2 OTHER LAB Nitrite UA neg OTHER LAB WBC UA ++ OTHER LAB Urine URINE / Unknown 11/01/2024 8 :22 AM CDT Kimani Rodriguez MD LAB - POINT OF CARE ORDERABLES Final Result Performing Organization Address City/[facility]/ZIP Co de Phone Number OTHER LAB * CA INSERT NON-INDWELLING BLADDER (11/01/2024 8:21 AM CDT) Narrative Kimani Rodriguez Che, MD - 11/01/2024 8:21 AM CDT Kimani Rodriguez Che, MD 11/01/2024 8:34 AM The patient was prepped with betadine (or [...] taken. The patient tolerated the procedure well. [facility] Blanche Rodriguez MD PROCEDURE/MINOR SURGICAL ORDERA BLES Final Result from Last 3 Months Insurance [facility] [employer] AENA MEDICARE ADV Care Teams Lens Mold Setter Relationship Specialty Start Date End Date Gerry Johnston DO [facility] - General 08/28/17
--- OUTSIDE RECORDS SUMMARY | 2024-12-07 08:03 | XMS_ITS | Clinical Summary ---
Author Organization [facility] Address [address] [place] [address] Care Team Providers Care Button Breaker Operator Name Role Phone Gerry Johnston DO Primary Care Provider [phone] Salvador Chirinos MD Unavailable Allergies Active Allergy Reactions Criticality Noted Date Comments Solifenacin Headache,Shortness o f breath High 05/27/2021 Sulfa (Sulfonamide Antibiotics) Rash,Itching Medium 02/23/2012 Medications aspirin 325 mg tablet daily. Active rosuvastatin (CRESTOR) 20 mg tablet Take 1 tablet (20 mg total) by mouth daily 2 Active levothyroxine (SYNTHROID, LEVOTHROID) 75 mcg tablet Take 1 tablet (75 mcg total) by mouth store operations specialist before breakfast 6 Active cyanocobalamin (Vitamin B-12) [...] on file Legal Sex Female 9:55 AM CORK MOLDER Gender Identity Not on file Sexual Orientation Not on file Obstetrics History Para Term AB IAB SAB Ectopic Multiple Livin g Live Births 1 1 1 Date Outcome GA Total Labor Labor/2nd/3rd Weight Sex Type Anes PTL Maribel A1 A5 Name Clin Term Last Filed Vital Signs Vital Sign Reading Time Taken Comments Blood Pressure 128/65 02/08/2024 8:33 AM CORK MOLDER Pulse 61 02/08/2024 8:33 AM CORK MOLDER Temperature 36.7 C (98 F) 12/13/2021 12:29 PM CDT Respiratory Rate 18 12/13/2021 2:13 PM CDT Oxygen Saturation 100% 02/08/2024 8:33 AM CORK MOLDER Inhaled Oxygen Concentration - - Weight 68 kg (150 lb) 02/08/2024 8:33 AM CORK MOLDER Height 157.5 cm (5' 2) 04/01/2024 3:01 PM CORK MOLDER Body Mass Index 26.57 02/08/2024 8:33 AM CORK MOLDER Plan of Treatment Health Maintenance Due Date Last Done Comments Depression Screening 1950 Hepatitis C Screening 1950 Osteoporosis Screening-Bone Density Scan 1950 DTaP/Tdap/Td Vaccine (1 - Tdap) 01/07/1959 Hepatitis B Screening 01/07/1966 Well Visit 65+ 01/07/2013 Fall Risk Assessment 12/13/2022 12/13/2021 Influenza Vaccine (#1) 2024 9, 12/28/2017, 01/07/2017, Additional history exists Pneumococcal vaccine 65+ Completed 08/25/2018, 11/05 Zoster Vaccine Completed 11/12/2018, 09/04, 03/07/2015 Breast Cancer Screening-Mammogram Discontinued 04/01/2024, 02/23/2023, 02/21/2022, Additional history exists Procedures Procedure Name Priority Date/Time Associated Diagnosis Comments SCREENING MAMMOGRAM BILATERAL [place] Schedule Routine, Read Routine (OP Routine) 04/01/2024 3:08 PM CORK MOLDER Screening mammogram, encounter for from Last 3 Months or Most Recently Relevant to Health Maintenance Results * Screening Mammogram Bilateral [place] (04/01/2024 3:08 PM CORK MOLDER) Anatomical Region Laterality Modality Breast Bilateral Mammography 04/01/2024 3:31 PM CORK MOLDER Impressions 04/01/2024 3:31 PM CORK MOLDER There is no mammographic evidence of malignancy. A 1 year screening mammogram is recommended. BI-RADS: 1 - Negative. The patient has been or will be contacted. The patient will be entered into a reminder system with a target due date of 1 year for her next mammogram. Electronically signed by: Joseph Mckoy M.D. Narrative 04/01/2024 3:31 PM CORK MOLDER EXAMINATION: SCREENING MAMMOGRAM BILATERAL [place] ORDERING [...] Most Recently Relevant to Health Maintenance Insurance [facility] MEDICARE [facility] MEDICARE [facility]ANT[facility] MEDIC[facility] Address: [address] [address] [place] [address] [facility] MEDICARE Advance Directives For more information, please contact: [phone] * Full Code (Latest Code Status on File) Date Activated Date Inactivated Comments 12/13/2021 12:29 PM 12/13/2021 7:10 PM Care Teams Button Breaker Operator Relationship Specialty Start Date End Date Gerry Johnston DO PCP - General 06/10/16 Salvador Chirinos MD [address] [place] [address] DR ABBY Wa[address] [address] Consulting Physician Obstetrics and Gynecology 02/19/23
--- OUTSIDE RECORDS SUMMARY | 2024-12-07 08:03 | XMS_ITS | Encounter Summary ---
Author Organization [facility] Address [address] [place] [address] Care Team Providers Care Building Construction Inspector Name Role Phone OsirisGerry marsh DO Primary Care Provider [phone] Encounter Details Date Type Department Care Team (Late st Contact Info) Description 11/03/2024 Results Follow-Up [facility] - DIRECTOR RECREATION [address], [facility] [address] [place] [address] Kimani Rodriguez Che, MD [address] [facility] [address] [place] [address] Social History Tobacco Use Types Packs/Day Years Used Date Smoking Tobacco: Never Smokeless Tobacco: Never Alcohol Use Standard Drinks/Week Comments Yes 2 (1 standard drink = 0.6 oz pur e alcohol) PHQ-2 Answer Date Recorded Patient Health Questionnaire-2 Score 0 11/01/2024 Comments No Sex and Gender Information Value Date Recorded Sex Assigned at Not on file Legal Sex Female 6:14 AM COMMERCIAL CENSUS TAKER Gender Identity Female 07/04/2021 8:04 AM CDT Sexual Orientation Choose not to disclose 2021 8:04 AM CDT documented as of this encounter Progress Notes * Kimani Rodriguez Che, MD - 11/04/2024 11:01 AM CDT Cefdinir sent for urinary tract infection * Kimani Rodriguez Che, MD - 11/03/2024 10:08 AM CDT Culture is positive, but awaiting sensitivities before prescribing medications. Allergies: -- Sulfa Drugs -- Itching -- And vaginal swelling -- Solifenacin -- Headache and Shortness of Breath documented in this encounter Plan of Treatment Not on file documented as of this encounter Visit Diagnoses Not on filedocumented in this encounter Care Teams Building Construction Inspector Relationship Specialty Start Date End Date Gerry Johnston DO PCP - General 08/28/17 documented as of this encounter
--- OUTSIDE RECORDS SUMMARY | 2024-12-07 08:03 | XMS_ITS | Encounter Summary ---
Author Organization [facility] Address [address] [place] [address] Phone Care Team Providers Care Geothermal Sheet Metal Worker Name Role Phone Gerry Johnston DO Primary Care Provider [phone] Salvador Chirinos MD Unavailable [phone] Encounter Details Date Type Department Care Team (Latest Contact Info) Description 01/29/2017 Orders Only [facility] CONVERSION Scanning, Provider Social History Tobacco Use Types Packs/Day Years Used Date Smoking Tobacco: Never Comments Unknown Sex and Gender Information Value Date Recorded Sex Assigned at Not on file 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
--- OUTSIDE RECORDS SUMMARY | 2024-12-07 08:03 | XMS_ITS | Encounter Summary ---
Author Organization [facility] Address [address] [facility] [address] [facility] [address] [place] [id number] Care Team Providers Care Design Checker Name Role Phone Gerry Johnston DO Primary Care Provider + [phone] Gerry Johnston DO Primary Care Provider + [phone] Salvador Chirinos MD Unavailable [phone] Encounter Details Date Type Department Care Team (Late st Contact Info) Description 04/09/2016 Orders Only [facility] Provider, MD Barry [address] [place] [id number] Social History Tobacco Use Types Packs/Day Years Used Date Smoking Tobacco: Never Assessed Comments Unknown Sex and Gender Information Value Date Recorded Sex Assigned at Not on file 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
[2024-12-07 13:33] LABS: Alanine Aminotransferase 13 U/L (6-35); Albumin Level 4.1 g/dL (3.5-5.1); Alkaline Phosphatase 75 U/L (38-126); Anion Gap 6 mmol/L (4-12); Aspartate Amino Transferase 39 U/L (14-36); Bilirubin,Total 0.5 mg/dL (0.2-1.3); Blood Urea Nitrogen 13 mg/dL (7-17); Calcium 9.6 mg/dL (8.4-10.2); Carbon Dioxide 29 mmol/L (22-30); Chloride 103 mmol/L (98-107); Estimated Glomerular Filt Rate > 60; Glucose 101 mg/dL (65-110); Potassium 4.4 mmol/L (3.4-5.0); Sodium 138 mmol/L (137-145); Total Protein 7.1 g/dL (6.3-8.2)
[2024-12-07 14:09] LABS: Thyroid Stimulating Hormone 0.739 uIU/mL (0.465-4.680)
== END 2024-12-07 07:59 | disposition home or self-care (01) ==
LOC: ANHGOSHLAB 08:00
PROVIDERS: PCP Internal Medicine; Visit Provider Clinical Nurse Specialist
DX: E03.9 Hypothyroidism, unspecified (principal); R94.4 Abnormal results of kidney function studies
CPT/HCPCS: 36415; 80053; 84443; 86376